=== PATIENT | female | born 1940 | race Caucasian/White ===

== ENCOUNTER 2020-10-19 15:56 | Outpatient (REF) | payer MEDICARE, SELFPAY | END 2020-10-19 15:57 | disposition home or self-care (01) | LOC: HO.LNP 15:56 | PROVIDERS: Visit Provider Specialist | DX: H57.89 Other specified disorders of eye and adnexa (principal) | CPT/HCPCS: 88304; 88305 ==

== ENCOUNTER 2020-11-02 16:19 | Outpatient (REF) | payer MEDICARE, SELFPAY | END 2020-11-02 16:20 | disposition home or self-care (01) | LOC: HO.LNP 16:19 | PROVIDERS: Visit Provider Specialist | DX: H02.825 Cysts of left lower eyelid (principal) | CPT/HCPCS: 88305 ==

== ENCOUNTER 2023-09-16 06:15 | Emergency (ER) | payer MEDICARE, SELFPAY ==
--- NOTE | ~2023-09-16 | CT_ITS ---
EXAMINATION: CT ABDOMEN AND PELVIS WITH CONTRAST CLINICAL INFORMATION: Abdominal pain and tenderness COMPARISON: None available. TECHNIQUE: Multidetector volumetric images were obtained from the superior aspect of the liver through the pubic symphysis following administration 85 mL of Omnipaque 350 intravenous contrast. Sagittal and coronal reformatted images were obtained on the technologist's workstation. Oral contrast: No This CT examination was performed using dose optimization techniques as appropriate, variously including the following: *Automated exposure control *Adjustment of mA and/or kV according to patient size (this includes techniques or standardized protocols for targeted exams where dose is matched to indication/reason for exam; i.e. extremities or head) *Use of iterative reconstruction technique DLP: 531 mGy-cm FINDINGS: LUNG BASES: The visualized lung bases are unremarkable. There is mild coronary artery calcification. LIVER, GALLBLADDER, AND BILIARY TREE: The liver is normal in size, shape, and attenuation. There are small hypodense liver lesions largest in the right hepatic lobe measures 1.5 cm and measure 16 Hounsfield units consistent with cysts. No intrahepatic ductal dilatation seen. The gallbladder is unremarkable with no evidence of radiopaque gallstones, gallbladder wall thickening, or obvious pericholecystic inflammatory changes. PANCREAS: Unremarkable. SPLEEN: Unremarkable. ADRENAL GLANDS: Unremarkable. KIDNEYS AND URETERS: The kidneys are normal in size, shape, and attenuation. No hydronephrosis, hydroureter, or calculi seen. No perinephric stranding. BLADDER: Unremarkable. GASTROINTESTINAL TRACT: There is a large amount of stool, diverticuli and gas seen throughout the colon without significant distention. The small bowel loops are normal caliber. Appendix is not visualized. ABDOMINAL WALL: A small umbilical hernia containing fat is noted. LYMPH NODES: Normal. VASCULAR: Unremarkable. PELVIC VISCERA: The pelvis is limited secondary to beam hardening artifact from bilateral hip prosthesis. Uterus and ovaries are not seen. OSSEOUS STRUCTURES: There is mild degenerative disc changes and vacuum disc phenomena throughout lumbar spine. No aggressive lytic or sclerotic process seen. No visible acute fracture or dislocation. There are bilateral hip prosthesis. CT/CT abdomen pelvis w IV con IMPRESSION: 1. No acute intra-abdominal process seen. 2. Moderate to significant constipation without obstruction. 3. Small umbilical hernia containing fat. 4. Multiple liver cysts. Fleischner guidelines were followed.
[2023-09-16 06:23] VITALS: BP 162/75; BP 162/79; PULSE 70; PULSE 72; RESP 16; TEMP 36.6; O2SAT 95; O2SAT 98; BMI 25.7
[2023-09-16 06:42] LABS: MANUAL DIFF FLAG NO
[2023-09-16 06:43] LABS: Basophils Absolute Auto 0.1 X10*3/uL (0.0-0.2); Basophils Percent Auto 1.1 % (0-2); Eosinophils Absolute Auto 0.6 X10*3/uL (0.0-0.4); Eosinophils Percent Auto 7.9 % (0-4); Hematocrit 38.3 % (37.0-47.0); Hemoglobin 12.6 g/dl (12.0-16.0); Imm Gran Abs Auto 0.01 X10*3/uL (0.00-0.03); Imm Gran Pct Auto 0.1 % (0.0-0.4); Lymphocytes Absolute Auto 1.8 X10*3/uL (1.2-4.9); Lymphocytes Percent Auto 25.8 % (20-40); Mean Corpuscular HGB Conc 32.9 g/dl (31.0-35.0); Mean Corpuscular Volume 94.1 fL (80.0-98.0); Mean Platelet Volume 10.1 fL (9.4-12.3); Monocytes Absolute Auto 0.6 X10*3/uL (0.1-1.2); Monocytes Percent Auto 8.9 % (2-11); Neutrophils Absolute Auto 3.9 x10*3/uL (2.0-8.3); Neutrophils Percent Auto 56.2 % (45-73); Platelet Count 286 X10*3/uL (160-400); Red Blood Count 4.07 X10*6/uL (4.20-5.50); Red Cell Distribution Width 12.9 % (11.0-16.0)
[2023-09-16 06:59] LABS: Alanine Aminotransferase 18 U/L (0-31); Albumin Level 3.7 g/dL (3.5-5.0); Alkaline Phosphatase 71 U/L (39-117); Anion Gap 10 (12-20); Aspartate Amino Transferase 25 U/L (5-31); Bilirubin Direct 0.1 mg/dL (0.0-0.5); Bilirubin Total 0.3 mg/dL (0.0-1.0); Blood Urea Nitrogen 25 mg/dL (9-16); Calcium 9.1 mg/dL (8.4-10.2); Carbon Dioxide 29 mmol/L (22-29); Chloride 107 mmol/L (96-108); Creatinine Clr Calc Pharmacy 54.7; Estimated Glomerular Filt Rate > 60; Glucose Random 110 mg/dL (60-115); Lipase 38 U/L (8-78); Potassium 4.8 mmol/L (3.3-5.1); Sodium 141 mmol/L (135-145); Total Protein 6.4 g/dL (6.5-8.0)
--- OUTSIDE RECORDS SUMMARY | 2023-09-16 08:52 | XMS_ITS | Continuity of Care Document ---
Author Name Unknown Organization [facility] Address [address] [place] [address]- Care Team Providers Care Ela Teacher Name Role Phone Bolivar MERA, Destiny Manzanares Primary Care Physician [facility] Date(s): 05/13/22 - 06/12/22 [facility] [address] [place] [phone]- Allergies, Adverse Reactions, Alerts No Known Allergies Immunizations Given and Recorded Vaccine Date Status Refusal Reason SARS-CoV-2 (COVID-19) mRNA BNT-162b2 vac 07/20/20 Recorded SARS-CoV-2 (COVID-19) mRNA BNT-162b2 vac 1 06/29/20 Recorded Zoster Vaccine Live 03/16/20 Recorded Zoster Vaccine Live 01/12/07 Recorded Influenza Virus Vaccine (oldterm) 03/16/20 Recorde d Influenza Virus Vaccine (oldterm) 03/22/19 Recorde d zoster vaccine, inactivated 2 03/01/20 Recorded influenza virus vaccine, inactivated 03/12/18 Robert rded influenza virus vaccine, inactivated 03/14/17 Robert rded influenza virus vaccine, inactivated 05/07/16 Robert rded influenza virus vaccine, inactivated 04/20/15 Robert rded influenza virus vaccine, inactivated 03/28/11 Robert rded tetanus-diphtheria toxoids (Td) 01/12/18 Recorded pneumococcal 23-valent vaccine 01/12/18 Recorded pneumococcal 23-valent vaccine 01/12/07 Recorded pneumococcal 13-valent vaccine 12/12/16 Recorded tetanus/diphtheria/pertussis, acel(Tdap) 08/20/10 [facility]ed [facility] acetaminophen 325 mg oral tablet 650 mg, By Mouth, Every 6 hours, Refills 0, Maintenance, 08/09/21 6:51:00 EST, Partial fill upon patient request if the prescription is for a schedule II opioid drug. Start Date: 08/09/21 Status: Ordered Aspirin Tablet 325 mg, By Mouth, 2 times a day, Refills 0, Maintenance, 08/09/21 6:51:00 EST, Partial fill upon patient request if the prescription is for a schedule II opioid drug. Start Date: 08/09/21 Status: Ordered atorvastatin 20 mg oral tablet 1 tablet, By Mouth, Daily, # 90 tablet, 1 Refills, [id number], 164, cm, 09/19/21 12:39:00 EDT,Height, 80, kg, 08/28/21 10:21:00 EDT, Dry Weight Start Date: 01/29/22 Status: Ordered calcium-vitamin D 250 mg-200 intl units oral tablet 2 tablet, By Mouth, 2 times a day, # 150 tablet, 0 Refills, Maintenance, 08/03/21 11:27:00 EST, Tablet, Partial fill upon patient request if the prescription is for a schedule II opioid drug. Start Date: 08/03/21 Status: Ordered celecoxib 200 mg oral capsule 1 capsule = 200 mg, By Mouth, Daily, 0 Refills, Maintenance, 08/09/21 6:51:00 EST, Capsule, Partialfill upon patient request if the prescription is for a schedule II opioid drug. Start Date: 08/09/21 Status: Ordered Colace Capsule 100 mg, 1, capsule, By Mouth, 2 times a day, Refills 0, Maintenance, 08/09/21 6:51:00 EST, Partial fill upon patient request if the prescription is for a schedule II opioid drug. Start Date: 08/09/21 Status: Ordered duloxetine 60 mg oral enteric coated capsule 1 capsule = 60 mg, By Mouth, Daily, # 90 capsule, 3 Refills, Maintenance, 09/19/21 13:47:00 EDT, ECCapsule, [facility]/pharmacy #[id number], Partial fill upon patient request if the prescription is for a schedule II opioid drug., 164, cm, 09/19/21 12:39:00 EDT, H... Start Date: 09/19/21 Stop Date: 09/14/22 Status: Ordered gabapentin 600 mg oral tablet 1 tablet = 600 mg, By Mouth, Daily at bedtime, # 30 tablet, 6 Refills, Maintenance, 12/14/22 14:04:00 EST, Tablet, [facility]/pharmacy #[id number], Partial fill upon patient request if the prescription is for a schedule II opioid drug., 164, cm, 09/19/21 12:39:00... Start Date: 05/29/22 Stop Date: 12/25/22 Status: Ordered Nature's Bounty Red Krill Oil = 1,000 mg, By Mouth, 2 times a day, 0 Refills, Maintenance, 12/20/20 12:55:00 EDT, Partial fill upon patient request if the prescription is for a schedule II opioid drug. Start Date: 12/20/20 Status: Ordered pantoprazole 40 mg oral delayed release tablet = 40 mg, By Mouth, Daily, 0 Refills, Maintenance, 08/09/21 6:51:00 EST, EC Tablet Start Date: 08/09/21 Status: Ordered PreserVision AREDS 2 1 capsule, By Mouth, Daily, 0 Refills, Maintenance, 12/24/18 14:52:44 EDT Start Date: 12/24/18 Status: Ordered timolol maleate 0.25% ophthalmic gel forming solution 1 drops, Eyes, Both, Daily, # 5 mL, 0 Refills, Maintenance, 12/24/18 14:57:27 EDT, Ophth Solution Start Date: 12/24/18 Status: Ordered traZODone 50 mg oral tablet 1, tablet, By Mouth, Daily at bedtime, # 90 tablet, Refills 1, Maintenance, 03/18/22 0:31:00 EDT, Route to Pharmacy Electronically, [facility] ST[facility] [id number], 164, cm, 09/19/21 12:39:00 EDT, Height, 80, kg, 08/28/21 10:21:00 EDT, Dry Weight Start Date: 03/18/22 Status: Ordered triamcinolone 0.1% topical lotion 1 application, Topically, 3 times a day, # 60 mL, 0 Refills, Maintenance, 08/03/21 11:28:00 EST, Lotion, Partial fill upon patient request if the prescription is for a schedule II opioid drug. Start Date: 08/03/21 Stop Date: 08/17/21 Status: Ordered Problem List Condition Confirmation Course Effective Dates Status Health Status Informant Anxiety and depression Confirmed Active Meningioma Confirmed Active Glaucoma Confirmed Active History of alcohol abuse Confirmed Active Hypercholesterolemia Confirmed Active Melanosis Confirmed Active Osteoarthritis Confirmed Active Degenerative joint disease Confirmed Active Osteopenia Confirmed Active PTSD (post-traumatic stress disorder) Confirmed Active Pseudophakia of both eyes Confirmed Active Restless leg syndrome Confirmed Active Thyroid nodule Confirmed Active Tubular adenoma Confirmed Active Social History Social History Type Response Smoking Status Former smoker, quit more than 30 days ago entered on: 12/24/18 Sex Female Patient Care team information Care Team Personnel Name: Israel QUIROZ, Romario Vela Position: [facility] RN Member Role: Primary Care Nurse Name: Destiny Lutz NP Position: [facility] PCO Associate Professional Member Role: PCP Address: Address: [address] [place] [phone]- Care Team Related Persons Name: KYLER DIEGO Address: home [address] [place] [place] [phone]
--- OUTSIDE RECORDS SUMMARY | 2023-09-16 08:52 | XMS_ITS | Continuity of Care Document ---
Author Name Unknown Organization [facility] Address [address] [place] [address]- Care Team Providers Care Job Counselor Name Role Phone Destiny Lutz NP Primary Care Physician [facility]): 05/15/22 - 11/28/22 [facility] [address] [place] [id number] Attending Physician: Destiny Lutz NP Allergies, Adverse Reactions, Alerts No Known Allergies Immunizations Given and Recorded Vaccine Date Status Refusal Reason influenza virus vaccine, inactivated 1 08/16/22 Gi anne influenza virus vaccine, inactivated 03/12/18 Robert rded influenza virus vaccine, inactivated 03/14/17 Robert rded influenza virus vaccine, inactivated 05/07/16 Robert rded influenza virus vaccine, inactivated 04/20/15 Robert rded influenza virus vaccine, inactivated 03/28/11 Robert rded SARS-CoV-2 mRNA (tfehoun-[id number]-[id number]) vax 10/05/21 Recorded SARS-CoV-2 (COVID-19) mRNA BNT-162b2 vac 07/20/20 Recorded SARS-CoV-2 (COVID-19) mRNA BNT-162b2 vac 2 06/29/20 Recorded Zoster Vaccine Live 03/16/20 Recorded Zoster Vaccine Live 01/12/07 Recorded Influenza Virus Vaccine (oldterm) 03/16/20 Recorde d Influenza Virus Vaccine (oldterm) 03/22/19 Recorde d zoster vaccine, inactivated 3 03/01/20 Recorded tetanus-diphtheria toxoids (Td) 01/12/18 Recorded pneumococcal 23-valent vaccine 01/12/18 Recorded pneumococcal 23-valent vaccine 01/12/07 Recorded pneumococcal 13-valent vaccine 12/12/16 Recorded tetanus/diphtheria/pertussis, acel(Tdap) 08/20/10 Recorded 1Result Comment: [facility]# [id number] 2Result Comment: [facility] acetaminophen 325 mg oral [...] Mouth, Daily, # 90 tablet, 1 Refills, Maintenance, 09/07/22 15:37:00 EDT, [id number], 164, cm, 09/05/22 10:23:00 EDT, Height, 80, kg, 08/28/21 10:21:00 EDT, Dry Weight Start Date: 09/07/22 Status: Ordered busPIRone 15 mg oral tablet 1 tablet = 15 mg, By Mouth, 2 times a day, # 180 tablet, 0 Refills, Maintenance, 11/20/22 15:35:00 EDT, Tablet, [facility]/pharmacy #[id number], Partial fill upon patient request if the prescription is for a schedule II opioid drug., 164, cm, 11/20/22 15:21:00 EDT... Start Date: 11/20/22 Stop Date: 02/18/23 Status: Ordered Caffedrine 0 Refills, Maintenance, 08/22/22 8:10:00 EST, Partial fill upon patient request if the prescriptionis for a schedule II opioid drug. Start Date: 08/22/22 Status: Ordered calcium-vitamin D 250 mg-200 intl units oral tablet 2 tablet, By Mouth, 2 times a day, # 150 tablet, 0 Refills, Maintenance, 08/03/21 11:27:00 EST, Tablet, Partial fill upon patient request if the prescription is for a schedule II opioid drug. Start Date: 08/03/21 Status: Ordered gabapentin 600 mg oral tablet 1 tablet = 600 mg, By Mouth, Daily at bedtime, # 30 tablet, 6 Refills, Maintenance, 05/29/22 14:04:00 EST, Tablet, [facility]/pharmacy #[id number], Partial fill upon patient request if the prescription is for a schedule II opioid drug., 164, cm, 09/19/21 12:39:00... Start Date: 05/29/22 Stop Date: 12/25/22 Status: Ordered Golytely - oral powder for reconstitution See Instructions, Drink 240mL every 15 minutes until gone, # 4,000 mL, 0 Refills, Maintenance, 09/03/22 13:20:00 EDT, [facility]/pharmacy #[id number], may sub any gallon PEG prep, Drink 240mL every 15 minutes until gone, 164, cm, 09/03/22 13:02:00 EDT, Height, 80,... Start Date: 09/03/22 Status: Ordered MiraLax oral powder for reconstitution = 17 Gm, By Mouth, Daily, dissolve in water or juice. My increase to 2-3 times a day as needed for constipation, # 255 Gm, 2 Refills, Maintenance, 09/03/22 13:20:00 EDT, [facility]/pharmacy #[id number], Partial fill upon patient request if the prescription is for... Start Date: 09/03/22 Stop Date: 12/02/22 Status: Ordered PreserVision AREDS 2 1 capsule, By Mouth, Daily, 0 Refills, Maintenance, 12/24/18 14:52:44 EDT Start Date: 12/24/18 Status: Ordered Grecia Antartic Krill Oil = 500 mg, By Mouth, Daily, 0 Refills, Maintenance, 08/22/22 8:10:00 EST, Partial fill upon patient request if the prescription is for a schedule II opioid drug. Start Date: 08/22/22 Status: Ordered Simethicone By Mouth, 0 Refills, Maintenance, 08/22/22 8:10:00 EST, Partial fill upon patient request if the prescription is for a schedule II opioid drug. Start Date: 08/22/22 Status: Ordered timolol maleate 0.25% ophthalmic gel forming solution 1 drops, Eyes, Both, Daily, # 5 mL, 0 Refills, Maintenance, 12/24/18 14:57:27 EDT, Ophth Solution Start Date: 12/24/18 Status: Ordered traZODone 50 mg oral tablet 50 mg, 1, tablet, By Mouth, Daily at bedtime, # 30 tablet, Refills 6, Tot. Refills 6, Maintenance, 11/25/22 14:22:00 EDT, Route to Pharmacy Electronically, [facility]/pharmacy #[id number], Partial fill upon patient request if the prescription is for a schedule II... Start Date: 11/25/22 Stop Date: 06/23/23 Status: Ordered triamcinolone 0.1% topical lotion 1 [...] Care team information Care Team Personnel Name: Romario Wood RN Position: [facility] RN Member Role: Primary Care Nurse Name: Destiny Lutz NP Position: [facility] PCO Associate Professional Member Role: PCP Address: Address: [address] [place] [address] [address] [place] [address]- Care Team Related Persons Name: BRANDEI KYLER Address: home [address] [place] [id number]
--- OUTSIDE RECORDS SUMMARY | 2023-09-16 08:52 | XMS_ITS | Continuity of Care Document ---
Author Name Unknown Organization [facility] Address [address] [place] [address]- Care Team Providers Care Surgical Manager Name Role Phone Bolivar MERA, Destiny Manzanares Primary Care Physician [facility]): 03/07/21 - 04/06/21 [facility] [address] [place] [phone]- Allergies, Adverse Reactions, Alerts Substance Reaction Severity Status NKA Active Immunizations Given and Recorded Vaccine Date Status Refusal Reason SARS-CoV-2 (COVID-19) mRNA BNT-162b2 vac 1 06/29/20 Recorded Zoster Vaccine Live 03/16/20 Recorded Influenza Virus Vaccine (oldterm) 03/16/20 Recorde d Influenza Virus Vaccine (oldterm) 03/22/19 Recorde d zoster vaccine, inactivated 2 03/01/20 Recorded 1[facility] aspirin 81 mg oral tablet 1 tablet = 81 mg, By Mouth, Daily, # 30 tablet, 0 Refills, Maintenance, 12/24/18 14:55:21 EDT, Tablet Start Date: 12/24/18 Status: Ordered atorvastatin 20 mg oral tablet 1 tablet, By Mouth, Daily, # 30 tablet, 5 Refills, Maintenance, 08/07/20 8:35:00 EST, [id number], 161, cm, 06/26/20 15:07:00 EST, Height, 80, kg, 01/17/19 21:57:00 EDT, Dry Weight Start Date: 08/07/20 Status: Ordered duloxetine 60 mg oral enteric coated capsule 1 capsule, By Mouth, 2 times a day, # 180 capsule, 2 Refills, [id number], 161, cm, 12/20/20 12:01:00 EDT, Height Start Date: 02/07/21 Status: Ordered folic acid 0.8 mg oral tablet 1 tablet = 0.8 mg, By Mouth, Daily, # 100 tablet, 0 Refills, Maintenance, 12/24/18 14:53:35 EDT, Tablet Start Date: 12/24/18 Status: Ordered Nature's Bounty Red Krill Oil = 1,000 mg, By Mouth, 2 times a day, 0 Refills, Maintenance, 12/20/20 12:55:00 EDT, Partial fill upon patient request if the prescription is for a schedule II opioid drug. Start Date: 12/20/20 Status: Ordered PreserVision AREDS 2 1 capsule, By Mouth, Daily, 0 Refills, Maintenance, 12/24/18 14:52:44 EDT Start Date: 12/24/18 Status: Ordered timolol maleate 0.25% ophthalmic gel forming solution 1 drops, Eyes, Both, Daily, # 5 mL, 0 Refills, Maintenance, 12/24/18 14:57:27 EDT, Ophth Solution Start Date: 12/24/18 Status: Ordered traZODone 50 mg oral tablet 1, tablet, By Mouth, Daily at bedtime, MUST MAKE AN APPT BEFORE MORE REFILLS., # 90 tablet, Refills0, Tot. Refills 0, Maintenance, 09/04/20 8:54:00 EDT, Route to Pharmacy Electronically, [id number], 161, cm, 06/26/20 15:07:00 EST, Height, 80, kg... Start Date: 09/04/20 Stop Date: 10/04/20 Status: Ordered Vitamin B12 1000 mcg oral tablet 1 tablet = 1,000 mcg, By Mouth, Daily, # 30 tablet, 0 Refills, Maintenance, 12/24/18 14:54:29 EDT, Tablet Start Date: 12/24/18 Status: Ordered Vitamin D3 2000 intl units oral capsule 1 capsule = 2,000 International_Units, By Mouth, Daily, 0 Refills, Maintenance, 12/24/18 14:55:00 EDT Start Date: 12/24/18 Status: Ordered Problem List Condition Effective Dates Status Health Status Inform ant Colon adenoma(Confirmed) Active Anxiety and depression(Confirmed) Active Meningioma(Confirmed) Active Bulimia(Confirmed) Active Glaucoma(Confirmed) Active History of alcohol abuse(Confirmed) Active Hypercholesterolemia(Confirmed) Active Melanosis(Confirmed) Active Osteoarthritis(Confirmed) Active Degenerative joint disease(Confirmed) Active Osteopenia(Confirmed) Active PTSD (post-traumatic stress disorder)(Confirmed) Active Pseudophakia of both eyes(Confirmed) Active Restless leg syndrome(Confirmed) Active Thyroid nodule(Confirmed) Active Social History Social History Type Response Smoking Status Former smoker, quit more than 30 days ago entered on: 12/24/18 Sex Female
--- OUTSIDE RECORDS SUMMARY | 2023-09-16 08:53 | XMS_ITS | Continuity of Care Document ---
Author Name Unknown Organization [facility] Address [address] [place] [address]- Care Team Providers Care Character Impersonator Name Role Phone Bolivar MERA, Destiny Manzanares Primary Care Physician [facility]): 03[facility]23 - 04/09/23 [facility] [address] [place] [id number] Allergies, Adverse Reactions, Alerts No Known Allergies Immunizations Given and Recorded Vaccine Date Status Refusal Reason influenza virus vaccine, inactivated 1 08/16/22 Gi anne influenza virus vaccine, inactivated 03/12/18 Robert rded influenza virus vaccine, inactivated 03/14/17 Robert rded influenza virus vaccine, inactivated 05/07/16 Robert rded influenza virus vaccine, inactivated 04/20/15 Robert rded influenza virus vaccine, inactivated 03/28/11 Robert rded SARS-CoV-2 mRNA ([id number]) vax 10/05/21 Recorded SARS-CoV-2 (COVID-19) mRNA BNT-162b2 [...] Recorded tetanus/diphtheria/pertussis, acel(Tdap) 08/20/10 Recorded 1Result Comment: [facility]# [id number] 2Result Comment: [facility]: [facility] Medications acetaminophen 325 mg oral tablet 650 [...] Daily, # 90 tablet, 1 Refills, Maintenance, 02/09/23 21:45:00 EDT, [id number], 164, cm, 11/20/22 15:21:00 EDT, Height, 80, kg, 08/28/21 10:21:00 EDT, Dry Weight Start Date: 02/09/23 Status: Ordered busPIRone 15 mg oral tablet 1 tablet, By Mouth, 2 times a day, # 180 tablet, 1 Refills, Maintenance, 02/09/23 21:46:00 EDT, [id number], 164, cm, 11/20/22 15:21:00 EDT, Height, 80, kg, 08/28/21 10:21:00 EDT, Dry Weight Start Date: 02/09/23 Status: Ordered busPIRone 30 mg oral tablet 1 tablet = 30 mg, By Mouth, 2 times a day, # 60 tablet, 6 Refills, Maintenance, 02/27/23 13:05:00 EDT, Tablet, [facility]/pharmacy #[id number], Partial fill upon patient request if the prescription is for a schedule II opioid drug., 164, cm, 02/27/23 12:47:00 EDT,... Start Date: 02/27/23 Stop Date: 09/25/23 Status: Ordered Caffedrine 0 Refills, Maintenance, 08/22/22 [...] 6 Refills, Maintenance, 05/29/22 14:04:00 EST, Tablet, [facility]/pharmacy #[id number], Partial fill upon patient request if the prescription is for a schedule II opioid drug., 164, cm, 09/19/21 12:39:00... Start Date: 05/29/22 Stop Date: 12/25/22 Status: Ordered Golytely - oral powder for reconstitution See Instructions, Drink 240mL every 15 minutes until gone, # 4,000 mL, 0 Refills, Maintenance, 09/03/22 13:20:00 EDT, [id number], may sub any gallon PEG prep, Drink 240mL every 15 minutes until gone, 164, cm, 09/03/22 13:02:00 EDT, Height, 80,... Start Date: 09/03/22 Status: Ordered MiraLax oral powder for reconstitution = 17 Gm, By Mouth, Daily, dissolve in water or juice. My increase to 2-3 times a day as needed for constipation, # 255 Gm, 2 Refills, Maintenance, 09/03/22 13:20:00 EDT, [id number], Partial fill upon patient request if [...] Daily at bedtime, # 30 tablet, Refills 2, Tot. Refills 2, Maintenance, 06/23/23 14:22:00 EST, Route to Pharmacy Electronically, [id number], Partial fill upon patient request if the prescription is for a sche... Start Date: 06/23/23 Stop Date: 09/21/23 Status: Ordered traZODone 50 mg oral tablet 50 mg, 1, tablet, By Mouth, Daily at bedtime, for 30 days, # 30 tablet, Refills 6, Tot. Refills 6, Hard Stop 06/23/23 14:22:00 EST, 11/25/22 14:22:00 EDT, Route to Pharmacy Electronically, [facility]/pharmacy #[id number], Partial fill upon patient request if the p... Start Date: 11/25/22 Stop Date: 06/23/23 Status: [...] Status Informant Anxiety and depression Confirmed Active Other specified anxiety disorders Confirmed Active ADHD Confirmed Active Meningioma Confirmed Active Glaucoma Confirmed Active History of alcohol abuse Confirmed Active Hypercholesterolemia Confirmed Active Melanosis Confirmed Active Osteoarthritis Confirmed Active Degenerative joint disease Confirmed Active Osteopenia Confirmed Active Persistent depressive disorder Confirmed Active PTSD (post-traumatic stress disorder) Confirmed Active Pseudophakia of both eyes Confirmed Active Restless leg syndrome Confirmed Active Thyroid nodule Confirmed Active Tubular adenoma Confirmed Active Social History Social History Type Response Smoking Status Former smoker, quit more than 30 days ago entered on: 12/24/18 Sex Female Patient Care team information Care Team Personnel Name: Israel RN, Romario Vela Position: S RN Member Role: Primary Care Nurse Name: Bolivar MERA, Destiny Manzanares Position: [facility] PCO Associate Professional Member Role: PCP Address: Address: [address] [place] [id number]- Care Team Related Persons Name: KYLER DIEGO Address: home [address] [place] [id number]
--- OUTSIDE RECORDS SUMMARY | 2023-09-16 08:53 | XMS_ITS | Continuity of Care Document ---
Author Name Unknown Organization [facility] Address [address] [place] [address]- Care Team Providers Care Water Trainer Name Role Phone Bolivar MERA, Destiny Manzanares Primary Care Physician [facility]): 08[facility]08[facility]23 - 09/07/23 [facility] [address] [place] [id number] Allergies, Adverse Reactions, Alerts No Known Allergies Immunizations Given and Recorded Vaccine Date Status Refusal Reason influenza virus vaccine, inactivated 1 08/16/22 Gi anne influenza virus vaccine, inactivated 03/12/18 Robert rded influenza virus vaccine, inactivated 03/14/17 Robert rded influenza virus vaccine, inactivated 05/07/16 Robert rded influenza virus vaccine, inactivated 04/20/15 Robert rded influenza virus vaccine, inactivated 03/28/11 Robert rded SARS-CoV-2 mRNA ([id number]-jcrs-rfifn) vax 10/05/21 Recorded SARS-CoV-2 (COVID-19) mRNA BNT-162b2 [...] tetanus/diphtheria/pertussis, acel(Tdap) 08/20/10 Recorded 1Result Comment: [facility]# [id number] 2[facility] Comment: [facility] [...] Daily, # 90 tablet, 1 Refills, Maintenance, 09/02/23 10:26:00 EDT, [id number], 164, cm, 06/19/23 15:19:00 EST, Height Start Date: 09/02/23 Status: Ordered busPIRone 30 mg oral tablet 1 tablet, By Mouth, 2 times a day, # 180 tablet, 1 Refills, Maintenance, 09/02/23 10:25:00 EDT, [id number], 164, cm, 06/19/23 15:19:00 EST, Height Start Date: 09/02/23 Stop Date: 10/02/23 Status: Ordered Caffedrine 0 Refills, Maintenance, 08/22/22 [...] mg, By Mouth, Daily at bedtime, # 90 tablet, 4 Refills, Maintenance, 05/26/23 10:44:00 EST, Tablet, [id number], Partial fill upon patient request if the prescription is for a schedule II opioid drug., 164, cm, 02/27/23 12:47:00... Start Date: 05/26/23 Stop Date: 08/18/24 Status: Ordered Golytely - oral powder for reconstitution See Instructions, Drink 240mL every 15 minutes until gone, # 4,000 mL, 0 Refills, Maintenance, 09/03/22 13:20:00 EDT, [facility]/pharmacy #[id number], may sub any gallon PEG prep, Drink 240mL every 15 minutes until gone, 164, cm, 09/03/22 13:02:00 EDT, Height, 80,... Start Date: 09/03/22 Status: Ordered MiraLax oral powder for reconstitution = 17 Gm, By Mouth, Daily, dissolve in water or juice. My increase to 2-3 times a day as needed for constipation, # 255 Gm, 2 Refills, Maintenance, 09/03/22 13:20:00 EDT, [facility]/pharmacy #[id number], Partial fill upon patient request if [...] Daily at bedtime, # 90 tablet, Refills 2, Maintenance, 05/22/23 12:01:00 EST, Route to Pharmacy Electronically, [facility] STORE [id number], 164, cm, 02/27/23 12:47:00 EDT, Height, 80, kg, 08/28/21 10:21:00 EDT, Dry Weight Start Date: 05/22/23 Status: Ordered triamcinolone 0.1% topical lotion 1 [...] Active ADHD Confirmed Active Meningioma Confirmed Active History of smoking Confirmed Active Glaucoma Confirmed Active History of [...] Personnel Name: Israel RN, Romario Vela Position: [facility] RN Member Role: Primary Care Nurse Name: Destiny Lutz NP Position: [facility] PCO Associate Professional Member Role: PCP Address: Address: [address] [place] [address] [address] [place] [address]- Care Team Related Persons Name: BUTCHFlorence KYLER Address: home [address] [place] [address]
--- OUTSIDE RECORDS SUMMARY | 2023-09-16 08:53 | XMS_ITS | Continuity of Care Document ---
Author Name Unknown Organization [facility] Adult Address [address] [place] [address]- Care Team Providers Care Manager Program Name Role Phone Destiny Lutz NP Primary Care Physician [facility]counter [facility] Date[facility]s): 09/26/22 - 10/26/22 [facility] Adult [address] [place] [address]- Allergies, Adverse Reactions, Alerts No Known Allergies Immunizations Given and Recorded Vaccine Date Status Refusal Reason influenza virus vaccine, inactivated 1 08/16/22 Gi anne influenza virus vaccine, inactivated 03/12/18 Robert rded influenza virus vaccine, inactivated 03/14/17 Robert rded influenza virus vaccine, inactivated 05/07/16 Robert rded influenza virus vaccine, inactivated 04/20/15 Robert rded influenza virus vaccine, inactivated 03/28/11 Robert rded SARS-CoV-2 mRNA ([id number]) vax 10/05/21 Recorded SARS-CoV-2 (COVID-19) mRNA BNT-162b2 [...] 08/20/10 Recorded 1Result Comment: [facility]# [id number] 2Result Comment: [facility] 3[facility]: [facility] [...] Refills, Maintenance, 09/07/22 15:37:00 EDT, [facility], 164, cm, 09/05/22 10:23:00 EDT, Height, 80, kg, 08/28/21 10:21:00 EDT, Dry Weight Start Date: 09/07/22 Status: Ordered busPIRone 7.5 mg oral tablet 1 tablet, By Mouth, 2 times a day, # 60 tablet, 0 Refills, Maintenance, 10/22/22 13:26:00 EDT, [facility], 164, cm, 09/19/22 9:37:00 EDT, Height, 80, kg, 08/28/21 10:21:00 EDT, Dry Weight Start Date: 10/22/22 Stop Date: 11/21/22 Status: Ordered Caffedrine 0 Refills, Maintenance, 08/22/22 [...] enteric coated capsule 1 capsule, By Mouth, Daily, # 90 capsule, 3 Refills, Maintenance, 09/16/22 12:22:00 EDT, [facility], 164, cm, 09/05/22 10:23:00 EDT, Height, 80, kg, 08/28/21 10:21:00 EDT, Dry Weight Start Date: 09/16/22 Status: Ordered gabapentin 600 mg oral tablet 1 tablet = 600 mg, By Mouth, Daily at bedtime, # 30 tablet, 6 Refills, Maintenance, 05/29/22 14:04:00 EST, Tablet, [id number], Partial fill upon [...] Date: 09/03/22 Stop Date: 12/02/22 Status: Ordered Nature's Bounty Red Krill Oil [...] Ophth Solution Start Date: 12/24/18 Status: Ordered triamcinolone 0.1% topical lotion 1 [...] Personnel Name: Israel RN, Romario Vela Position: [facility] RN Member Role: Primary Care Nurse Name: Bolivar RADIOLOGIST, Destiny Manzanares Position: [facility] PCO Associate Professional Member Role: PCP Address: Address: [address] [place] [address]- Care Team Related Persons Name: KYLER DIEGO Address: home [address] [place] [phone]
--- OUTSIDE RECORDS SUMMARY | 2023-09-16 08:53 | XMS_ITS | Continuity of Care Document ---
Author Name Unknown Organization [facility] Adult Address [address] [place] [address]- Care Team Providers Care Motorcycle Police Officer Name Role Phone Destiny Lutz NP Primary Care Physician Encounter [facility] Date(s): 02/27/23 - 03/06/23 [facility] Adult [address] [place] [id number] Encounter Diagnosis Anxiety and depression(Discharge Diagnosis) - 02/27/23 Attending Physician: Destiny Lutz NP Allergies, Adverse [...] vaccine, inactivated 03/28/11 Robert rded SARS-CoV-2 mRNA ([id number]-zzle-hsgvv) vax 10/05/21 Recorded SARS-CoV-2 (COVID-19) mRNA BNT-162b2 vac 07/20/20 Recorded SARS-CoV-2 (COVID-19) mRNA BNT-162b2 vac 2 06/29/20 Recorded Zoster Vaccine Live 03/16/20 Recorded Zoster Vaccine Live 01/12/07 Recorded Influenza Virus Vaccine (oldterm) 03/16/20 Recorde d Influenza Virus Vaccine (oldterm) 03/22/19 Recorde d zoster vaccine, inactivated 3 03/01/20 Recorded tetanus-diphtheria toxoids (Td) 01/12/18 Recorded pneumococcal 23-valent vaccine 01/12/18 Recorded pneumococcal 23-valent vaccine 7/30/07 Recorded pneumococcal 13-valent vaccine 12/12/16 Recorded tetanus/diphtheria/pertussis, acel(Tdap) 08/20/10 Recorded 1Result Comment: [facility]# [id number] 2Result Comment: [facility] 3Result Comment: [facility] [...] Refills, Maintenance, 02/09/23 21:45:00 EDT, [facility], 164, cm, 11/20/22 15:21:00 EDT, Height, 80, kg, 08/28/21 10:21:00 EDT, Dry Weight Start Date: 02/09/23 Status: Ordered busPIRone 15 mg oral tablet 1 tablet, By Mouth, 2 times a day, # 180 tablet, 1 Refills, Maintenance, 02/09/23 21:46:00 EDT, [facility], 164, cm, 11/20/22 15:21:00 EDT, Height, 80, kg, 08/28/21 10:21:00 EDT, Dry Weight Start Date: 02/09/23 Status: Ordered busPIRone 30 mg oral tablet 1 tablet = 30 mg, By Mouth, 2 times a day, # 60 tablet, 6 Refills, Maintenance, 02/27/23 13:05:00 EDT, Tablet, [facility]/pharmacy #[id number], Partial fill upon patient request [...] 6 Refills, Maintenance, 05/29/22 14:04:00 EST, Tablet, [facility]/pharmacy #[id number], Partial fill upon patient request [...] Gm, 2 Refills, Maintenance, 09/03/22 13:20:00 EDT, [facility]/pharmacy #[id number], Partial fill upon patient request [...] 11/25/22 14:22:00 EDT, Route to Pharmacy Electronically, [facility]/pharmacy #[id number], Partial fill upon patient request if the [...] nodule Confirmed Active Tubular adenoma Confirmed Active Diagnosis Diagnosis Type Effective Dates Health Status Clinical Service Informant Anxiety and depression Discharge Diagnosis 02/27/23 Vital Signs Most recent to oldest [Reference Range]: 1 Height 164 cm (02/27/23 12:47 PM) Weight 66 kg (02/27/23 12:47 PM) Body Mass Index [18.5-24.99 kg/m2] 24.54 kg/m2 (02/27/23 12:47 PM) Weight Obtained Via Patient/family state d (02/27/23 12:47 PM) Social History Social History Type Response Smoking Status Former smoker, quit more than 30 days ago entered on: 12/24/18 Sex Female Patient Care team information Care Team Personnel Name: Romario Wood RN Position: [facility] RN Member Role: Primary Care Nurse Name: Destiny Lutz NP Position: [facility] PCO Associate Professional Member Role: PCP Address: Address: [address] [place] [address]- Care Team Related Persons Name: KYLER DIEGO Address: home [address] [place] [address]
--- OUTSIDE RECORDS SUMMARY | 2023-09-16 08:53 | XMS_ITS | Continuity of Care Document ---
Author Name Unknown Organization [facility] Adult Address [address] [place] [address]- Care Team Providers Care Business Dean Name Role Phone Bolivar MERA, Destiny Manzanares Primary Care Physician [facility] Date[facility]s): 11/12/22 - 12/12/22 [facility] Adult [address] [place] [id number] Allergies, Adverse Reactions, Alerts No Known Allergies Immunizations Given and Recorded Vaccine Date Status Refusal Reason influenza virus vaccine, inactivated 1 08/16/22 Gi anne influenza virus vaccine, inactivated 03/12/18 Robert rded influenza virus vaccine, inactivated 03/14/17 Robert rded influenza virus vaccine, inactivated 05/07/16 Robert rded influenza virus vaccine, inactivated 04/20/15 Robert rded influenza virus vaccine, inactivated 03/28/11 Robert rded SARS-CoV-2 mRNA (loyggye-atee-vhjsd) vax 10/05/21 Recorded SARS-CoV-2 (COVID-19) mRNA BNT-162b2 [...] tetanus/diphtheria/pertussis, acel(Tdap) 08/20/10 Recorded 1Result Comment: [facility]# [id number] 2Result Comment: [facility] 3Result Comment: [facility] Medications acetaminophen 325 mg oral tablet 650 [...] Refills, Maintenance, 09/07/22 15:37:00 EDT, [facility], 164, cm, 09/05/22 10:23:00 EDT, Height, 80, kg, 08/28/21 10:21:00 EDT, Dry Weight Start Date: 09/07/22 Status: Ordered busPIRone 15 mg oral tablet 1 tablet = 15 mg, By Mouth, 2 times a day, # 180 tablet, 0 Refills, Maintenance, 11/20/22 15:35:00 EDT, Tablet, [facility]/pharmacy #[id number], Partial fill upon [...] 6 Refills, Maintenance, 05/29/22 14:04:00 EST, Tablet, [facility]/pharmacy #[id number], Partial fill upon patient request if the prescription is for a schedule II opioid drug., 164, cm, 09/19/21 12:39:00... Start Date: 05/29/22 Stop Date: 12/25/22 Status: Ordered Golytely - oral powder for reconstitution See Instructions, Drink 240mL every 15 minutes until gone, # 4,000 mL, 0 Refills, Maintenance, 09/03/22 13:20:00 EDT, [facility]/pharmacy #[id number], may sub any [...] Gm, 2 Refills, Maintenance, 09/03/22 13:20:00 EDT, [facility]/pharmacy #[id number], Partial fill upon [...] 11/25/22 14:22:00 EDT, Route to Pharmacy Electronically, [facility]/pharmacy #[id number], Partial fill upon patient request if the [...] Team Personnel Name: Romario Wood RN Position: [facility] RN Member Role: Primary Care Nurse Name: Destiny Lutz NP Position: [facility] PCO Associate Professional Member Role: PCP Address: Address: [address] [place] [id number] Care Team Related Persons Name: KYLER DIEGO Address: home [address] [place] [address]
--- OUTSIDE RECORDS SUMMARY | 2023-09-16 08:53 | XMS_ITS | Continuity of Care Document ---
Author Name Unknown Organization [facility] Address [address] [facility] [place] [address] [place] [address]- Care Team Providers Care Ground Services Instructor Name Role Phone Destiny Lutz NP Primary Care Physician Encounter 01/17/22 - 01/24/22 [facility] [address], [facility] [address] [place] [address]- Attending Physician: Destiny Lutz NP Admitting Physician: Destiny Lutz NP Referring Physician: Destiny Lutz NP Allergies, Adverse Reactions, [...] # 90 tablet, 1 Refills, [facility], 161, cm, 12/20/20 12:01:00 EDT,Height Start Date: 04/20/21 Status: Ordered calcium-vitamin D 250 mg-200 intl [...] 3 Refills, Maintenance, 09/19/21 13:47:00 EDT, ECCapsule, [facility]/pharmacy #[id number], Partial fill upon patient request if the prescription is for a schedule II opioid drug., 164, cm, 09/19/21 12:39:00 EDT, H... Start Date: 09/19/21 Stop Date: 09/14/22 Status: Ordered gabapentin 600 mg oral tablet 1 tablet = 600 mg, By Mouth, Daily at bedtime, # 90 tablet, 5 Refills, Maintenance, 08/03/21 11:26:00 EST, Tablet, Partial fill upon patient request if the prescription is for a schedule II opioid drug. Start Date: 08/03/21 Status: Ordered Nature's Bounty Red Krill Oil [...] at bedtime, # 90 tablet, Refills 1, Tot. Refills 1, 10/08/21 8:59:00 EDT, Route to Pharmacy Electronically, [facility]/pharmacy #[id number], 164, cm, 09/19/21 12:39:00 EDT, Height, 80, kg, 08/28/21 10:21:00 EDT, Dry Weight Start Date: 10/08/21 Status: Ordered triamcinolone 0.1% topical lotion 1 application, Topically, 3 times a day, # 60 mL, 0 Refills, Maintenance, 08/03/21 11:28:00 EST, Lotion, Partial fill upon patient request if the prescription is for a schedule II opioid drug. Start Date: 08/03/21 Stop Date: 08/17/21 Status: Ordered Problem List Condition Effective Dates Status Health Status Inform ant Anxiety and depression(Confirmed) Active Meningioma(Confirmed) Active Glaucoma(Confirmed) Active History of alcohol abuse(Confirmed) Active Hypercholesterolemia(Confirmed) Active Melanosis(Confirmed) Active Osteoarthritis(Confirmed) Active Degenerative joint disease(Confirmed) Active Osteopenia(Confirmed) Active PTSD (post-traumatic stress disorder)(Confirmed) Active Pseudophakia of both eyes(Confirmed) Active Restless leg syndrome(Confirmed) Active Thyroid nodule(Confirmed) Active Tubular adenoma(Confirmed) Active Social History Social History Type Response Smoking Status Former smoker, quit more than 30 days ago entered on: 12/24/18 Sex Female
--- OUTSIDE RECORDS SUMMARY | 2023-09-16 08:53 | XMS_ITS | Continuity of Care Document ---
Author Name Unknown Organization [facility] Adult Address [address] [place] [address]- Care Team Providers Care Manager Cash Name Role Phone Destiny Lutz NP Primary Care Physician [facility] Date[facility]s): 07/18/22 - 08/17/22 [facility] Adult [address] [place] [address]- Allergies, Adverse Reactions, Alerts No Known Allergies Immunizations Given and Recorded Vaccine Date Status Refusal Reason influenza virus vaccine, inactivated 1 08/16/22 Gi anne influenza virus vaccine, inactivated 03/12/18 Robert rded influenza virus vaccine, inactivated 03/14/17 Robert rded influenza virus vaccine, inactivated 05/07/16 Robert rded influenza virus vaccine, inactivated 04/20/15 Robert rded influenza virus vaccine, inactivated 03/28/11 Robert rded SARS-CoV-2 mRNA (qfgqnfu-xrsl-ewnhw) vax 10/05/21 Recorded SARS-CoV-2 (COVID-19) mRNA BNT-162b2 [...] Recorded tetanus/diphtheria/pertussis, acel(Tdap) 08/20/10 Recorded 1Result Comment: [facility]# [id number] 2Result Comment: [facility] 3Result Comment: [facility] [...] # 90 tablet, 1 Refills, [facility], 164, cm, 09/19/21 12:39:00 EDT,Height, 80, kg, [...] 3 Refills, Maintenance, 09/19/21 13:47:00 EDT, ECCapsule, [facility]/pharmacy #[id number], Partial fill upon patient request if the prescription is for a schedule II opioid drug., 164, cm, 09/19/21 12:39:00 EDT, H... Start Date: 09/19/21 Stop Date: 09/14/22 Status: Ordered gabapentin 600 mg oral tablet 1 tablet = 600 mg, By Mouth, Daily at bedtime, # 30 tablet, 6 Refills, Maintenance, 05/29/22 14:04:00 EST, Tablet, [facility]/pharmacy #[id number], Partial fill upon patient request [...] 03/18/22 0:31:00 EDT, Route to Pharmacy Electronically, [facility] STORE [id number], 164, cm, 09/19/21 12:39:00 EDT, Height, 80, [...] Team Personnel Name: Romario Wood RN Position: [facility] RN Member Role: Primary Care Nurse Name: Destiny Lutz NP Position: [facility] PCO Associate Professional Member Role: PCP Address: Address: [address] [place] [address] [address] [place] [address]- Care Team Related Persons Name: KYLER DIEGO Address: home [address] [place] [phone]
--- OUTSIDE RECORDS SUMMARY | 2023-09-16 08:53 | XMS_ITS | Continuity of Care Document ---
Author Name Unknown Organization [facility] Adult Address [address] [place] [address]- Care Team Providers Care Adult Specialist Name Role Phone Destiny Lutz NP Primary Care Physician En[place] [facility] Date(s): 07/06/19 - 07/16/19 [facility] Adult [address] [place] [address]- [facility] Attending Physician: Soy Capone Admitting Physician: Soy Capone Referring Physician: AdmtrSoy Allergies, Adverse Reactions, Alerts Substance Reaction Severity Status NKA Active Immunizations Given and Recorded Vaccine Date Status Refusal Reason Influenza Virus Vaccine (oldterm) 03/22/19 Recorde d Medications aspirin 81 mg oral tablet 1 tablet = 81 mg, By Mouth, Daily, # 30 tablet, 0 Refills, Maintenance, 12/24/18 14:55:21 EDT, Tablet Start Date: 12/24/18 Status: Ordered atorvastatin 20 mg oral tablet 1 tablet = 20 mg, By Mouth, Daily, # 30 tablet, 2 Refills, Maintenance, 05/18/19 15:45:07 EST, Tablet, 161, cm, 01/19/19 7:40:47 EDT, Height, 80, kg, 01/17/19 21:57:10 EDT, Dry Weight Start Date: 05/18/19 Stop Date: 08/16/19 Status: Ordered buPROPion 100 mg oral tablet 1 tablet = 100 mg, By Mouth, 2 times a day, Patient will be increased to 400 mg daily. ( 300 mg Xl daily and 100 mg BID), # 60 tablet, 6 Refills, Maintenance, 05/18/19 16:40:40 EST, Tablet, 161, cm, 01/19/19 7:40:47 EDT, Height, 80, kg, 01/17/19 21:57... Start Date: 05/18/19 Stop Date: 12/14/19 Status: Ordered buPROPion 300 mg/24 hours (XL) oral tablet, extended release 1 tablet = 300 mg, By Mouth, Daily, # 30 tablet, 6 Refills, Maintenance, 05/18/19 16:40:25 EST, ER Tablet, 161, cm, 01/19/19 7:40:47 EDT, Height, 80, kg, 01/17/19 21:57:10 EDT, Dry Weight Start Date: 05/18/19 Stop Date: 12/14/19 Status: Ordered duloxetine 60 mg oral enteric coated capsule 1 capsule = 60 mg, By Mouth, Daily, # 30 capsule, 5 Refills, Maintenance, 01/21/19 16:41:15 EDT, Capsule Start Date: 01/21/19 Status: Ordered folic acid 0.8 mg oral tablet 1 tablet = 0.8 mg, By Mouth, Daily, # 100 tablet, 0 Refills, Maintenance, 12/24/18 14:53:35 EDT, Tablet Start Date: 12/24/18 Status: Ordered gabapentin 600 mg oral tablet 1 tablet = 600 mg, By Mouth, Daily at bedtime, 0 Refills, Maintenance, 01/17/19 22:06:31 EDT Start Date: 01/17/19 Status: Ordered PreserVision AREDS 2 1 capsule, [...] 30 tablet, Refills 2, Tot. Refills 2, Soft Stop, 04/26/19 16:42:03 EST, Route to Pharmacy Electronically, [id number], [facility]/pharmacy #[id number] Start Date: 04/26/19 Stop Date: 07/25/19 Status: Ordered Vitamin B12 1000 mcg oral [...]
--- OUTSIDE RECORDS SUMMARY | 2023-09-16 08:53 | XMS_ITS | Continuity of Care Document ---
Author Name Unknown Organization [facility] Adult Address [address] [place] [address]- Care Team Providers Care Spanisher Name Role Phone Bolivar MERA, Destiny Manzanares Primary Care Physician [facility] 04[facility]23 - 05/04/23 [facility] Adult [address] [place] [id number] Allergies, Adverse Reactions, Alerts No Known Allergies Immunizations Given and Recorded Vaccine Date Status Refusal Reason influenza virus vaccine, inactivated 1 08/16/22 Gi anne influenza virus vaccine, inactivated 03/12/18 Robert rded influenza virus vaccine, inactivated 03/14/17 Robert rded influenza virus vaccine, inactivated 05/07/16 Robert rded influenza virus vaccine, inactivated 04/20/15 Robert rded influenza virus vaccine, inactivated 03/28/11 Robert rded SARS-CoV-2 mRNA ([id number]-pftl-ltnrh) vax 10/05/21 Recorded SARS-CoV-2 (COVID-19) mRNA BNT-162b2 [...] Recorded tetanus/diphtheria/pertussis, acel(Tdap) 08/20/10 Recorded 1Result Comment: [facility]# [id number] 2Result Comment: [facility] 3Result Comment: [facility] Medications acetaminophen 325 mg oral tablet [...] Refills, Maintenance, 02/09/23 21:45:00 EDT, [facility], 164, cm, 11/20/22 15:21:00 EDT, Height, 80, kg, 08/28/21 10:21:00 EDT, Dry Weight Start Date: 02/09/23 Status: Ordered busPIRone 15 mg oral tablet 1 tablet, By Mouth, 2 times a day, # 180 tablet, 1 Refills, Maintenance, 02/09/23 21:46:00 EDT, [facility], 164, cm, 11/20/22 15:21:00 EDT, Height, 80, kg, 08/28/21 10:21:00 EDT, Dry Weight Start Date: 02/09/23 Status: Ordered busPIRone 30 mg oral tablet 1 tablet = 30 mg, By Mouth, 2 times a day, # 60 tablet, 6 Refills, Maintenance, 02/27/23 13:05:00 EDT, Tablet, [facility]/pharmacy #[id number], Partial fill upon patient [...] 6 Refills, Maintenance, 05/29/22 14:04:00 EST, Tablet, [facility]/pharmacy #[id number], Partial fill upon patient [...] 11/25/22 14:22:00 EDT, Route to Pharmacy Electronically, [facility]/pharmacy #[id number], Partial fill upon patient request if the [...] more than 30 days ago entered on: 7/11/19 Sex Female Patient Care team information Care Team Personnel Name: Israel RN, Romario Vela Position: [facility] RN Member Role: Primary Care Nurse Name: Destiny Lutz NP Position: [facility] PCO Associate Professional Member Role: PCP Address: Address: [address] [place] [place] [address]- Care Team Related Persons Name: KYLER DIEGO Address: [address] [address]
--- OUTSIDE RECORDS SUMMARY | 2023-09-16 08:53 | XMS_ITS | Continuity of Care Document ---
Author Name Unknown Organization [facility] Adult Address [address] [place] [address]- Care Team Providers Care Fixed Wing Aircraft Crew Chief Name Role Phone Bolivar MERA, Destiny Manzanares Primary Care Physician [facility]): 12[facility]22 - 01/09/23 [facility] Adult [address] [place] [id number] Attending Physician: Admtr, Nestor8 Admitting Physician: Admtr, Ar8 Referring Physician: Admtr, Ar8 Allergies, Adverse Reactions, Alerts No Known Allergies Immunizations Given and Recorded Vaccine Date Status Refusal Reason influenza virus vaccine, inactivated 1 08/16/22 Gi anne influenza virus vaccine, inactivated 03/12/18 Robert rded influenza virus vaccine, inactivated 03/14/17 Robert rded influenza virus vaccine, inactivated 05/07/16 Robert rded influenza virus vaccine, inactivated 04/20/15 Robert rded influenza virus vaccine, inactivated 03/28/11 Robert rded SARS-CoV-2 mRNA (gbrpnpp-yfdu-wfhwd) vax 10/05/21 Recorded SARS-CoV-2 (COVID-19) mRNA BNT-162b2 [...] Recorded tetanus/diphtheria/pertussis, acel(Tdap) 08/20/10 Recorded 1Result Comment: [facility]# [id number] 2Result Comment: [facility] 3[facility]: [facility] [...] Refills, Maintenance, 09/07/22 15:37:00 EDT, [facility], 164, cm, 09/05/22 10:23:00 EDT, Height, 80, kg, 08/28/21 10:21:00 EDT, Dry Weight Start Date: 09/07/22 Status: Ordered busPIRone 15 mg oral tablet 1 tablet = 15 mg, By Mouth, 2 times a day, # 180 tablet, 0 Refills, Maintenance, 11/20/22 15:35:00 EDT, Tablet, [facility]/pharmacy #[id number], Partial fill upon patient request [...] 6 Refills, Maintenance, 05/29/22 14:04:00 EST, Tablet, [facility]/pharmacy #[id number], Partial fill upon patient request if the prescription is for a schedule II opioid drug., 164, cm, 09/19/21 12:39:00... Start Date: 05/29/22 Stop Date: 12/25/22 Status: Ordered Golytely - oral powder for reconstitution See Instructions, Drink 240mL every 15 minutes until gone, # 4,000 mL, 0 Refills, Maintenance, 09/03/22 13:20:00 EDT, [facility]/pharmacy #[id number], may sub any gallon PEG prep, Drink 240mL every 15 minutes until gone, 164, cm, 09/03/22 13:02:00 EDT, Height, 80,... Start Date: 09/03/22 Status: Ordered MiraLax oral powder for reconstitution = 17 Gm, By Mouth, Daily, dissolve in water or juice. My increase to 2-3 times a day as needed for constipation, # 255 Gm, 2 Refills, Maintenance, 09/03/22 13:20:00 EDT, [facility]/pharmacy #[id number], Partial fill upon patient request [...] 11/25/22 14:22:00 EDT, Route to Pharmacy Electronically, [facility]/pharmacy #[id number], Partial fill upon patient request if the [...] Personnel Name: Israel QUIROZ, Romario Vela Position: [facility] RN Member Role: Primary Care Nurse Name: Destiny Lutz NP Position: [facility] PCO Associate Professional Member Role: PCP Address: Address: [address] [place] [address] [address] [place], [place] [address] Care Team Related Persons Name: MORRISKYLER HERNANDEZ Address: home [address] [place] [address]
--- OUTSIDE RECORDS SUMMARY | 2023-09-16 08:53 | XMS_ITS | Continuity of Care Document ---
Author Name Unknown Organization [facility] Address [address] [place] [address]- Care Team Providers Care Customer Leader Name Role Phone Destiny [place] NP Primary Care Physician [facility] - 10/05/22 [facility] [address] [place] [address]- Allergies, Adverse Reactions, Alerts No Known Allergies Immunizations Given and Recorded Vaccine Date Status Refusal Reason influenza virus vaccine, inactivated 1 08/16/22 Gi anne influenza virus vaccine, inactivated 03/12/18 Robert rded influenza virus vaccine, inactivated 03/14/17 Robert rded influenza virus vaccine, inactivated 05/07/16 Robert rded influenza virus vaccine, inactivated 04/20/15 Robert rded influenza virus vaccine, inactivated 03/28/11 Robert rded SARS-CoV-2 mRNA ([id number]-[id number]-[id number]) vax 10/05/21 Recorded SARS-CoV-2 (COVID-19) mRNA BNT-162b2 [...] Recorded tetanus/diphtheria/pertussis, acel(Tdap) 08/20/10 Recorded 1Result Comment: [facility]# [id number] 2Result Comment: [facility] 3Result Comment: [facility] Medications acetaminophen 325 mg oral tablet 650 [...] Refills, Maintenance, 09/07/22 15:37:00 EDT, [facility], 164, cm, 09/05/22 10:23:00 EDT, Height, 80, kg, 08/28/21 10:21:00 EDT, Dry Weight Start Date: 09/07/22 Status: Ordered busPIRone 7.5 mg oral tablet 1 tablet = 7.5 mg, By Mouth, 2 times a day, # 60 tablet, 0 Refills, Maintenance, 09/19/22 10:42:00 EDT, Tablet, [id number], Partial fill upon patient request if the prescription is for a schedule II opioid drug., 164, cm, 09/19/22 9:37:00 EDT,... Start Date: 09/19/22 Stop Date: 10/19/22 Status: Ordered Caffedrine 0 Refills, Maintenance, 08/22/22 [...] Refills, Maintenance, 09/16/22 12:22:00 EDT, [facility], 164, cm, 09/05/22 10:23:00 EDT, Height, 80, [...] Team Personnel Name: Romario Wood RN Position: [facility] RN Member Role: Primary Care Nurse Name: Destiny [place] NP Position: [facility] PCO Associate Professional Member Role: PCP Address: Address: [address] [place] [id number]- Care Team Related Persons Name: KYLER DIEGO Address: home [address] [place] [address]
--- OUTSIDE RECORDS SUMMARY | 2023-09-16 08:53 | XMS_ITS | Continuity of Care Document ---
Author Name Unknown Organization [facility] Adult Address [address] [place] [address]- Care Team Providers Care Climatologist Name Role Phone Bolivar MERA, Destiny Manzanares Primary Care Physician [facility]): 08[facility]/23 - 09/11/23 [facility] Adult [address] [place] [id number] Allergies, Adverse Reactions, Alerts No Known Allergies Immunizations Given and Recorded Vaccine Date Status Refusal Reason influenza virus vaccine, inactivated 1 08/16/22 Gi anne influenza virus vaccine, inactivated 03/12/18 Robert rded influenza virus vaccine, inactivated 03/14/17 Robert rded influenza virus vaccine, inactivated 05/07/16 Robert rded influenza virus vaccine, inactivated 04/20/15 Robert rded influenza virus vaccine, inactivated 03/28/11 Robert rded SARS-CoV-2 mRNA (lmwzyxo-dfir-oznma) vax 10/05/21 Recorded SARS-CoV-2 (COVID-19) mRNA BNT-162b2 [...] Recorded tetanus/diphtheria/pertussis, acel(Tdap) 08/20/10 Recorded 1Result Comment: [facility]# [id number] 2Result Comment: [facility] 3[facility]: [facility] Medic[facility] [...] Refills, Maintenance, 09/02/23 10:26:00 EDT, [facility], 164, cm, 06/19/23 15:19:00 EST, Height Start Date: 09/02/23 Status: Ordered busPIRone 30 mg oral tablet 1 tablet, By Mouth, 2 times a day, # 180 tablet, 1 Refills, Maintenance, 09/02/23 10:25:00 EDT, [facility], 164, cm, 06/19/23 15:19:00 EST, Height Start [...] mL, 0 Refills, Maintenance, 09/03/22 13:20:00 EDT, [facility]/pharmacy #[id number], may sub any gallon PEG prep, Drink 240mL every 15 minutes until gone, 164, cm, 09/03/22 13:02:00 EDT, Height, 80,... Start Date: 09/03/22 Status: Ordered MiraLax oral powder for reconstitution = 17 Gm, By Mouth, Daily, dissolve in water or juice. My increase to 2-3 times a day as needed for constipation, # 255 Gm, 2 Refills, Maintenance, 09/03/22 13:20:00 EDT, [facility]/pharmacy #[id number], Partial fill upon patient [...] 05/22/23 12:01:00 EST, Route to Pharmacy Electronically, [facility] STORE 26253, 164, cm, 02/27/23 12:47:00 EDT, Height, 80, [...] Personnel Name: Israel RN, Romario Vela Position: [facility] RN Member Role: Primary Care Nurse Name: Destiny [place] NP Position: [facility] PCO Associate Professional Member Role: PCP Address: Address: [address] [place] [address] [address] [place] [address]- Care Team Related Persons Name: BUTCHFlorence KYLER Address: home [address] [place] [address]
--- OUTSIDE RECORDS SUMMARY | 2023-09-16 08:53 | XMS_ITS | Continuity of Care Document ---
Author Name Unknown Organization [facility] Adult Address [address] [place] [address]- Care Team Providers Care Manufacturing Systems Engineer Name Role Phone Bolivar SLACK COOPER, Destiny Manzanares Primary Care Physician Encounter [facility] Date(s): 08/07/20 - 09/06/20 [facility] Adult [address] [place] [address]- Allergies, Adverse Reactions, Alerts Substance Reaction Severity [...] 1 capsule = 60 mg, By Mouth, 2 times a day, # 60 capsule, 6 Refills, Maintenance, 08/08/20 10:39:00EST, [id number], 161, cm, 06/26/20 15:07:00 EST, Height, 80, kg, 01/17/19 21:57:00 EDT, DryWeight Start Date: 08/08/20 Stop Date: 03/06/21 Status: Ordered folic acid 0.8 mg oral tablet 1 tablet = 0.8 mg, By Mouth, Daily, # 100 tablet, 0 Refills, Maintenance, 12/24/18 14:53:35 EDT, Tablet Start Date: 12/24/18 Status: Ordered PreserVision AREDS 2 1 capsule, [...] 09/04/20 8:54:00 EDT, Route to Pharmacy Electronically, [facility] STORE [id number], 161, cm, 06/26/20 15:07:00 EST, Height, 80, [...]
--- OUTSIDE RECORDS SUMMARY | 2023-09-16 08:53 | XMS_ITS | Continuity of Care Document ---
Author Name Unknown Organization [facility] Adult Address [address] [place] [address]- Care Team Providers Care Machine Assembler For Puller Over Name Role Phone Bolivar MERA, Destiny Manzanares Primary Care Physician [place] [facility] [place]s): 07/05/22 - 08/04/22 [facility] Adult [address] [place] [address]- Allergies, Adverse Reactions, Alerts No Known Allergies [...] # 90 tablet, 1 Refills, [facility], 164, cm, 09/19/21 12:39:00 EDT,Height, 80, kg, [...] 3 Refills, Maintenance, 09/19/21 13:47:00 EDT, ECCapsule, [facility]/pharmacy #[id number], Partial fill upon patient request if the prescription is for a schedule II opioid drug., 164, cm, 09/19/21 12:39:00 EDT, H... Start Date: 09/19/21 Stop Date: 09/14/22 Status: Ordered gabapentin 600 mg oral tablet 1 tablet = 600 mg, By Mouth, Daily at bedtime, # 30 tablet, 6 Refills, Maintenance, 05/29/22 14:04:00 EST, Tablet, [facility]/pharmacy #[id number], Partial fill upon patient request [...] 03/18/22 0:31:00 EDT, Route to Pharmacy Electronically, [facility] STORE 39253, 164, cm, 09/19/21 12:39:00 EDT, Height, 80, [...] Personnel Name: Israel QUIROZ, Romario Vela Position: [facility] RN Member Role: Primary Care Nurse Name: Bolivar MERA, Destiny Manzanares Position: [facility] PCO Associate Professional Member Role: PCP Address: Address: [address] [place] [address]- Care Team Related Persons Name: KYLER DIEGO Address: home [address] [place] [id number]
--- OUTSIDE RECORDS SUMMARY | 2023-09-16 08:53 | XMS_ITS | Continuity of Care Document ---
Author Name Unknown Organization [facility] Adult Address [address] [place] [address]- Care Team Providers Care Yard Assistant Name Role Phone Destiny [place] NP Primary Care Physician [facility] Date[facility]s): 08/30/22 - 09/29/22 [facility] Adult [address] [place] [address]- Allergies, Adverse Reactions, Alerts No Known Allergies Immunizations Given and Recorded Vaccine Date Status Refusal Reason influenza virus vaccine, inactivated 1 08/16/22 Gi anne influenza virus vaccine, inactivated 03/12/18 Robert rded influenza virus vaccine, inactivated 03/14/17 Robert rded influenza virus vaccine, inactivated 05/07/16 Robert rded influenza virus vaccine, inactivated 04/20/15 Robert rded influenza virus vaccine, inactivated 03/28/11 Robert rded SARS-CoV-2 mRNA (qyyjjrt-nlon-emgvh) vax 10/05/21 Recorded SARS-CoV-2 (COVID-19) mRNA BNT-162b2 [...] Recorded tetanus/diphtheria/pertussis, acel(Tdap) 08/20/10 Recorded 1Result Comment: [facility]# [id number] 2Result Comment: [facility] 3Result Comment: [facility] Medications acetaminophen 325 mg oral tablet [...] Refills, Maintenance, 09/07/22 15:37:00 EDT, [facility], 164, cm, 09/05/22 10:23:00 EDT, Height, 80, [...] Refills, Maintenance, 09/16/22 12:22:00 EDT, [facility], 164, cm, 09/05/22 10:23:00 EDT, Height, 80, [...] Team Personnel Name: Romario Wood RN Position: [facility] RN Member Role: Primary Care Nurse Name: Destiny [place] NP Position: [facility] PCO Associate Professional Member Role: PCP Address: Address: [address] [place] [address]- Care Team Related Persons Name: KYLER DIEGO Address: home [address] [place] [address]
--- OUTSIDE RECORDS SUMMARY | 2023-09-16 08:53 | XMS_ITS | Continuity of Care Document ---
Author Name Unknown Organization [facility] Adult Address [address] [place] [address]- Care Team Providers Care Environmental Services Technician Name Role Phone Bolivar AIR COMPRESSOR OPERATOR, Destiny Manzanares Primary Care Physician [place] [facility] Date(s): 07/18/20 - 08/17/20 [facility] Adult [address] [place] [address]- Allergies, Adverse Reactions, Alerts Substance Reaction Severity [...] 1, tablet, By Mouth, Daily at bedtime, needs medicare wellness appt before anymore refills, # 30 tablet, Refills 2, Tot. Refills 2, Soft Stop, 02/22/20 16:13:00 EDT, Route to Pharmacy Electronically, [facility]/pharmacy #[id number], 161, cm, 01/19/19 7:40:0... Start Date: 02/22/20 Stop Date: 05/22/20 Status: Ordered Vitamin B12 1000 mcg oral [...]
--- OUTSIDE RECORDS SUMMARY | 2023-09-16 08:53 | XMS_ITS | Continuity of Care Document ---
Author Name Unknown Organization [facility] Adult Address [address] [place] [address]- Care Team Providers Care Physicist Solid Earth Name Role Phone Bolivar MERA, Destiny Manzanares Primary Care Physician [place] [facility] [place] 04/15/22 - 05/15/22 [facility] Adult [address] [place] [address]- Allergies, Adverse Reactions, Alerts No Known Allergies [...] # 90 tablet, 1 Refills, [facility], 164, cm, 09/19/21 12:39:00 EDT,Height, 80, kg, [...] 3 Refills, Maintenance, 09/19/21 13:47:00 EDT, ECCapsule, [facility]/pharmacy #[id number], Partial fill upon patient request if the prescription is for a schedule II opioid drug., 164, cm, 09/19/21 12:39:00 EDT, H... Start Date: 09/19/21 Stop Date: 09/14/22 Status: Ordered gabapentin 600 mg oral tablet 1 tablet = 600 mg, By Mouth, Daily at bedtime, # 30 tablet, 0 Refills, Maintenance, 11/11/22 9:49:00 EST, Tablet, [facility]/pharmacy #[id number], Partial fill upon patient request if the prescription is for a schedule II opioid drug., 164, cm, 09/19/21 12:39:00 E... Start Date: 04/26/22 Status: Ordered Nature's Bounty Red Krill Oil [...] 03/18/22 0:31:00 EDT, Route to Pharmacy Electronically, [facility] STORE 72730, 164, cm, 09/19/21 12:39:00 EDT, Height, 80, [...] Personnel Name: Israel RN, Romario Vela Position: [facility] RN Member Role: Primary Care Nurse Name: Bolivar MERA, Destiny Manzanares Position: [facility] PCO Associate Professional Member Role: PCP Address: Address: [address] [place] [address]- Care Team Related Persons Name: KYLER DIEGO Address: home [address] [place] [id number]
--- OUTSIDE RECORDS SUMMARY | 2023-09-16 08:53 | XMS_ITS | Continuity of Care Document ---
Author Name Unknown Organization [facility] Address Unknown Care Team Providers Care Guide Alpine Name Role Phone Bolivar MERA, Destiny Manzanares Primary Care Physician Encounter [facility] Date(s): 03/05/21 - 04/04/21 [facility] Allergies, Adverse Reactions, Alerts Substance Reaction Severity [...] # 180 capsule, 2 Refills, [facility], 161, cm, 12/20/20 12:01:00 EDT, Height Start [...] 09/04/20 8:54:00 EDT, Route to Pharmacy Electronically, [facility] 39614, 161, cm, 06/26/20 15:07:00 EST, Height, 80, [...]
--- OUTSIDE RECORDS SUMMARY | 2023-09-16 08:53 | XMS_ITS | Continuity of Care Document ---
Author Name Unknown Organization [facility] Adult Address [address] [place] [address]- Care Team Providers Care Cardiology Specialist Name Role Phone Bolivar IRONWORKER MACHINE OPERATOR, Destiny Manzanares Primary Care Physician [place] [facility] [place](s): 08/18/20 - 09/17/[address] [facility] Adult [address] [place] [address]- Allergies, Adverse Reactions, Alerts Substance Reaction Severity [...] 60 capsule, 6 Refills, Maintenance, 08/08/20 10:39:00EST, [facility]/pharmacy #[id number], 161, cm, 06/26/20 15:07:00 EST, Height, [...] 09/04/20 8:54:00 EDT, Route to Pharmacy Electronically, [facility] STORE 10161, 161, cm, 06/26/20 15:07:00 EST, Height, 80, [...]
--- OUTSIDE RECORDS SUMMARY | 2023-09-16 08:53 | XMS_ITS | Continuity of Care Document ---
Author Name Unknown Organization [facility] ter Address [address] [place] [address]- Care Team Providers Care Web Consultant Name Role Phone Bolivar MERA, Destiny Manzanares Primary Care Physician [facility] Date[facility]s): 08/03/21 - 09/02/[address] [address] Attending Physician: AdmtrSoy Admitting Physician: Admtr, Ar8 Referring Physician: Admtr, [...] # 90 tablet, 1 Refills, [facility], 161, cm, 12/20/20 12:01:00 EDT,Height Start Date: [...] opioid drug. Start Date: 08/09/21 Status: Ordered gabapentin 600 mg oral tablet [...] at bedtime, # 90 tablet, Refills 1, Route to Pharmacy Electronically, [facility] ST[facility] 68180, 161, cm, 12/20/20 12:01:00 EDT, Height Start Date: 04/20/21 Status: Ordered triamcinolone 0.1% topical lotion 1 [...]
--- OUTSIDE RECORDS SUMMARY | 2023-09-16 08:53 | XMS_ITS | Continuity of Care Document ---
Author Name Unknown Organization [facility] Adult Address [address] [place] [address]- Care Team Providers Care Enrichment Specialist Name Role Phone Bolivar EGG TRAYER, Destiny Manzanares Primary Care Physician En[place] [facility] Date(s): 02/22/20 - 03/23/20 [facility] Adult [address] [place] [address] [facility] Allergies, Adverse Reactions, Alerts Substance Reaction Severity [...] tablet, By Mouth, Daily, # 90 tablet, 0 Refills, Maintenance, 11/15/19 16:44:00 EDT, [facility], 161, cm, 01/19/19 7:40:00 EDT, Height, 80, kg, 01/17/19 21:57:00 EDT, Dry Weight Start Date: 11/15/19 Status: Ordered atorvastatin 20 mg oral tablet 1 tablet, By Mouth, Daily, needs appt before anymore refills, # 30 tablet, 2 Refills, Maintenance, 02/22/20 16:16:00 EDT, [id number], 161, cm, 01/19/19 7:40:00 EDT, Height, 80, kg, 01/17/19 21:57:00 EDT, Dry Weight Start Date: 02/22/20 Status: Ordered buPROPion 100 mg oral tablet [...] capsule, By Mouth, Daily, # 90 capsule, 1 Refills, Maintenance, 08/17/19 15:12:00 EST, [facility], 161, cm, 01/19/19 7:40:00 EDT, Height, 80, kg, 01/17/19 21:57:00 EDT, Dry Weight Start Date: 08/17/19 Status: Ordered folic acid 0.8 mg oral [...] Pharmacy Electronically, [facility]/pharmacy #[id number], 504, cm, 01/19/19 7:40:0... Start Date: 02/22/20 Stop [...]
--- OUTSIDE RECORDS SUMMARY | 2023-09-16 08:53 | XMS_ITS | Continuity of Care Document ---
Author Name Unknown Organization [facility] Adult Address [address] [place] [address]- Care Team Providers Care Gum Scoring Machine Operator Name Role Phone Bolivar MERA, Destiny Manzanares Primary Care Physician [facility] Date[facility]s): 12/13/22 - 01/12/23 [facility] Adult [address] [place] [phone] Allergies, Adverse Reactions, Alerts No Known Allergies Immunizations Given and Recorded Vaccine Date Status Refusal Reason influenza virus vaccine, inactivated 1 08/16/22 Gi anne influenza virus vaccine, inactivated 03/12/18 Robert rded influenza virus vaccine, inactivated 03/14/17 Robert rded influenza virus vaccine, inactivated 05/07/16 Robert rded influenza virus vaccine, inactivated 04/20/15 Robert rded influenza virus vaccine, inactivated 03/28/11 Robert rded SARS-CoV-2 mRNA ([id number]-okvn-mqdmf) vax 10/05/21 Recorded SARS-CoV-2 (COVID-19) mRNA BNT-162b2 [...] Recorded tetanus/diphtheria/pertussis, acel(Tdap) 08/20/10 Recorded 1Result Comment: [facility]# [id number] 2Result Comment: [facility] 3[facility]: [facility] [...] Refills, Maintenance, 09/07/22 15:37:00 EDT, [facility], 164, cm, 09/05/22 10:23:00 EDT, Height, 80, kg, 08/28/21 10:21:00 EDT, Dry Weight Start Date: 09/07/22 Status: Ordered busPIRone 15 mg oral tablet 1 tablet = 15 mg, By Mouth, 2 times a day, # 180 tablet, 0 Refills, Maintenance, 11/20/22 15:35:00 EDT, Tablet, [facility]/pharmacy #[id number], Partial fill upon patient [...] 6 Refills, Maintenance, 05/29/22 14:04:00 EST, Tablet, [facility]/pharmacy #[id number], Partial fill upon patient request if the prescription is for a schedule II opioid drug., 164, cm, 09/19/21 12:39:00... Start Date: 05/29/22 Stop Date: 12/25/22 Status: Ordered Golytely - oral powder for reconstitution See Instructions, Drink 240mL every 15 minutes until gone, # 4,000 mL, 0 Refills, Maintenance, 09/03/22 13:20:00 EDT, [facility]/pharmacy #[id number], may sub any gallon [...] Gm, 2 Refills, Maintenance, 09/03/22 13:20:00 EDT, [facility]/pharmacy #[id number], Partial fill upon patient [...] 11/25/22 14:22:00 EDT, Route to Pharmacy Electronically, [facility]/pharmacy #[id number], Partial fill upon patient request if the [...] Associate Professional Member Role: PCP Address: Address: [address] [place] [id number] Care Team Related Persons Name: KYLER DIEGO Address: home [address] [place] [address]
--- OUTSIDE RECORDS SUMMARY | 2023-09-16 08:53 | XMS_ITS | Continuity of Care Document ---
Author Name Unknown Organization [facility] Adult Address [address] [place] [address]- Care Team Providers Care Precinct I Police Sergeant Name Role Phone Destiny [place] NP Primary Care Physician [place] [facility] [place] [place] Date[place]s): 12/20/20 - 12/27/20 [facility] Adult [address] [place] [address]- Encounter Diagnosis Anxiety and depression(Discharge Diagnosis) - 12/20/20 Attending Physician: Destiny [place] NP Allergies, Adverse Reactions, Alerts Substance Reaction Severity [...] 60 capsule, 6 Refills, Maintenance, 08/08/20 10:39:00EST, [facility]/pharmacy #[id number], 161, cm, 06/26/20 15:07:00 EST, Height, [...] 09/04/20 8:54:00 EDT, Route to Pharmacy Electronically, [facility] STORE 66876, 161, cm, 06/26/20 15:07:00 EST, Height, 80, [...] Restless leg syndrome(Confirmed) Active Thyroid nodule(Confirmed) Active Diagnosis Diagnosis Type Effective Dates Health Status Clinical Service Informant Anxiety and depression Discharge Diagnosis 12/20/20 Vital Signs Most recent to oldest [Reference Range]: 1 Height 161 cm (12/20/20 12:01 PM) Weight 78 kg (12/20/20 12:01 PM) Body Mass Index [18.5-24.99] 30.09 *>HHI* (12/20/20 12:01 PM) Weight Obtained Via Patient/family state d (12/20/20 12:01 PM) Social History Social History Type Response Smoking Status Former smoker, quit more than 30 days ago entered on: 12/24/18 Sex Female
--- OUTSIDE RECORDS SUMMARY | 2023-09-16 08:53 | XMS_ITS | Continuity of Care Document ---
Author Name Unknown Organization [facility] Adult Address [address] [place] [address]- Care Team Providers Care Highwall Drill Operator Name Role Phone Bolivar MERA, Destiny Manzanares Primary Care Physician [facility] Date[facility]s): 05/25/23 - 06/24/23 [facility] Adult [address] [place] [id number] Allergies, Adverse Reactions, Alerts No Known Allergies Immunizations Given and Recorded Vaccine Date Status Refusal Reason influenza virus vaccine, inactivated 1 08/16/22 Gi anne influenza virus vaccine, inactivated 03/12/18 Robert rded influenza virus vaccine, inactivated 03/14/17 Robert rded influenza virus vaccine, inactivated 05/07/16 Robert rded influenza virus vaccine, inactivated 04/20/15 Robert rded influenza virus vaccine, inactivated 03/28/11 Robert rded SARS-CoV-2 mRNA ([id number]-[id number]-yicsq) vax 10/05/21 Recorded SARS-CoV-2 (COVID-19) mRNA BNT-162b2 [...] Recorded tetanus/diphtheria/pertussis, acel(Tdap) 08/20/10 Recorded 1Result Comment: [facility]# [id number] 2[facility] Comment: [facility] 3[facility]: [facility] Medications acetaminophen 325 mg oral tablet 650 [...] Refills, Maintenance, 02/09/23 21:45:00 EDT, [facility], 164, cm, 11/20/22 15:21:00 EDT, Height, 80, kg, 08/28/21 10:21:00 EDT, Dry Weight Start Date: 02/09/23 Status: Ordered busPIRone 15 mg oral tablet 1 tablet, By Mouth, 2 times a day, # 180 tablet, 1 Refills, Maintenance, 02/09/23 21:46:00 EDT, [facility], 164, cm, 11/20/22 15:21:00 EDT, Height, 80, kg, 08/28/21 10:21:00 EDT, Dry Weight Start Date: 02/09/23 Status: Ordered busPIRone 30 mg oral tablet 1 tablet = 30 mg, By Mouth, 2 times a day, # 60 tablet, 6 Refills, Maintenance, 02/27/23 13:05:00 EDT, Tablet, [facility]/pharmacy #[id number], Partial fill upon patient request if [...] 4 Refills, Maintenance, 05/26/23 10:44:00 EST, Tablet, [facility]/pharmacy #[id number], Partial fill upon patient request if [...] 05/22/23 12:01:00 EST, Route to Pharmacy Electronically, [facility] STORE 38122, 164, cm, 02/27/23 12:47:00 EDT, Height, 80, [...] Team Personnel Name: Romario Wood RN Position: [facility] RN Member Role: Primary Care Nurse Name: Destiny [place] NP Position: [facility] PCO Associate Professional Member Role: PCP Address: Address: [address] [place] [address] [address] [place] [address]- Care Team Related Persons Name: KYLER DIEGO Address: home [address] [place] [address]
--- OUTSIDE RECORDS SUMMARY | 2023-09-16 08:53 | XMS_ITS | Continuity of Care Document ---
Author Name Unknown Organization [facility] ter Address [address] [place] [address]- Care Team Providers Care Manager Hvac Name Role Phone Bolivar MERA, Destiny Manzanares Primary Care Physician Encounter [facility] Date(s): 08/27/21 - 08/28/[address] [address]- Encounter Diagnosis Hip dislocation, left(Final) - 08/27/21 Discharge Disposition: A-D/C Home Attending Physician: Andres Vargas MD Admitting Physician: Andres Vargas MD Referring Physician: Not on Staff, Referring MD Allergies, Adverse Reactions, Alerts No Known Allergies Immunizations Given and Recorded Vaccine Date Status Refusal Reason SARS-CoV-2 (COVID-19) mRNA BNT-162b2 vac 1 06/29/20 Recorded Zoster Vaccine Live 03/16/20 Recorded Influenza Virus Vaccine (oldterm) 03/16/20 Recorde d Influenza Virus Vaccine (oldterm) 03/22/19 Recorde d zoster vaccine, inactivated 2 03/01/20 Recorded [facility] Medications acetaminophen 325 mg oral [...] Mouth, Daily, # 90 tablet, 1 Refills, [facility] STORE 70528, 161, cm, 12/20/20 12:01:00 EDT,Height Start Date: [...] opioid drug. Start Date: 12/20/20 Status: Ordered OxyCODONE IR Tablet 10 mg, Tablet, By Mouth, Every 3 hours, PRN for Pain , Moderate, Routine, 08/27/21 22:24:00 EDT Start Date: 08/27/21 Stop Date: 08/28/21 Status: Discontinued pantoprazole 40 mg oral delayed release tablet [...] tablet, Refills 1, Route to Pharmacy Electronically, [facility], 161, cm, 12/20/20 12:01:00 EDT, Height Start [...] Active Thyroid nodule(Confirmed) Active Tubular adenoma(Confirmed) Active Results Radiology Reports * Exam Date Time Procedure Performing Provider Status 08/27/21 10:37 PM XR Hip w/Pelvis 2-3 View Left Ann Nick (Verified) Notes: (XR Hip w/Pelvis 2-3 View Left) Reason For Exam: Other: RESULT: XR Hip w/Pelvis 2-3 View Left XR Hip w/Pelvis 2-3 View Left Hx of Present Illness: Pt reports she was standing and twisted, feeling a pop in her hip causing her to fall.; Reason: Other:; Clinical Question(s): Other:; s p left DANIEL reduction COMPARISON: None. FINDINGS: No evidence of periprosthetic fracture. No radiographic evidence of complication. Persistent lucency noted in the left greater trochanter which appears similar to previous exams. IMPRESSION: No acute abnormality identified within the left hip joint. WSN: [id number] Ordering Physician: Doug Bahena Dictated By: Rayray Luo MD Dictated Date/Time: 08/27/21 10:39 p Reviewed By: Rayray Luo MD Signed By: Rayray Luo MD Signed Date/Time: 08/27/21 10:39 pm Transcribed By: LOVE Transcribed Date/Time: 08/27/21 10:38 pm * Exam Date Time Procedure Performing Provider Status 08/27/21 9:55 PM Pelvis 1 or 2 Views Nelson Whitfield (Verified) Notes: (Pelvis 1 or 2 Views) Reason For Exam: With Pain;Trauma RESULT: Pelvis 1 or 2 Views Pelvis 1 or 2 Views Hx of Present Illness: Pt reports she was standing and twisted, feeling a pop in her hip causing her to fall.; Reason: Trauma; With Pain; Clinical Question(s): Fracture COMPARISON: Previous exam same day FINDINGS: Previously seen left hip arthroplasty dislocation has been reduced. No fractures identified. Normal soft tissues. IMPRESSION: Reduction of left hip arthroplasty dislocation. WSN: [id number] Ordering Physician: Telly Wellington MD Dictated By: Rayray Luo MD Dictated Date/Time: 08/27/21 10:01 p Reviewed By: Rayray Luo MD Signed By: Rayray Luo MD Signed Date/Time: 08/27/21 10:01 pm Transcribed By: LOVE Transcribed Date/Time: 08/27/21 9:58 pm * Exam Date Time Procedure Performing Provider Status 08/27/21 8:44 PM XR Hip w/Pelvis 2-3 View Left Freda López; Jaime (Verified) Notes: (XR Hip w/Pelvis 2-3 View Left) Reason For Exam: With Pain;Trauma RESULT: XR Hip w/Pelvis 2-3 View Left XR Hip w/Pelvis 2-3 View Left Hx of Present Illness: Pt reports she was standing and twisted, feeling a pop in her hip causing her to fall.; Reason: Trauma; With Pain; Clinical Question(s): Fracture COMPARISON: 08/08/2021 FINDINGS: There is dislocation of the patient's left hip arthroplasty. No radiographic evidence of complication. The right hip arthroplasty appears unchanged from previous examination. No definite discrete fracture identified. Some lucent areas are noted in the left greater trochanter which likely are similar to the previous exam. IMPRESSION: Dislocation of the patient's left hip arthroplasty. WSN: [id number] Ordering Physician: Telly Wellington MD Dictated By: Rayray Luo MD Dictated Date/Time: 08/27/21 8:48 pm Reviewed By: Rayray Luo MD Signed By: Rayray Luo MD Signed Date/Time: 08/27/21 8:48 pm Transcribed By: LOVE Transcribed Date/Time: 08/27/21 8:47 pm Vital Signs Most recent to oldest [Reference Range]: 1 2 3 Height 164 cm (08/28/21 10:21 AM) 164 cm (08/28/21 2:47 AM) 164 cm (08/27/21 8:18 PM) Weight 80 kg (08/28/21 10:21 AM) 80 kg (08/28/21 2:47 AM) 80 kg (08/27/21 8:18 PM) Oxygen Saturation [94-100 %] 96 % (08/28/21 12:46 PM) 94 % (08/28/21 10:21 AM) 98 % (08/28/21 7:15 AM) Pulse Rate [55-90 bpm] 80 bpm (08/28/21 12:46 PM) 83 bpm (08/28/21 10:21 AM) 70 bpm (08/28/21 7:15 AM) Body Mass Index [18.5-24.99] 29.74 *H* (08/28/21 10:21 AM) 29.74 *H* (08/28/21 2:47 AM) Blood Pressure [90-138/55-84 mm Hg] 123/51mm Hg (08/28/21 12:46 PM) 108/52mm Hg (08/28/21 10:21 AM) 143/86mm Hg *H* (08/28/21 7:15 AM) Respiratory Rate [16-30 br/min] 16 br/min (08/28/21 12:46 PM) 15 br/min *L* (08/28/21 12:28 PM) 16 br/min (08/28/21 10:21 AM) Temperature [96.8-100.4 DegF] 98.7 DegF (08/28/21 12:46 PM) 98.4 DegF (08/28/21 10:21 AM) 98.8 DegF (08/28/21 7:15 AM) Liters per Minute 0 L/min (08/28/21 10:21 AM) Mode of Delivery (Oxygen) Room air (08/28/21 12:46 PM) Room air (08/28/21 10:21 AM) Room air (08/28/21 7:15 AM) Blood pressure sites Arm, right (08/28/21 10:21 AM) Arm, right (08/28/21 2:47 AM) Temperature Route Oral (08/28/21 12:46 PM) Oral (08/28/21 10:21 AM) Oral (08/28/21 7:15 AM) Dry Weight 80 kg (08/28/21 10:21 AM) 80 kg (08/28/21 2:47 AM) 80 kg (08/27/21 8:18 PM) Weight Obtained Via Patient/family state d (08/27/21 8:18 PM) Dry Weight Obtained Via Patient/family s tated (08/27/21 8:18 PM) Social History Social History Type Response Smoking Status Former smoker, quit more than 30 days ago entered on: 12/24/18 Sex Female
--- OUTSIDE RECORDS SUMMARY | 2023-09-16 08:54 | XMS_ITS | Continuity of Care Document ---
Author Name Unknown Organization [facility] Adult Address [address] [place] [address]- Care Team Providers Care Operations Support Professionals Name Role Phone Destiny Lutz NP Primary Care Physician [facility]counter [facility] Date(s): 12/08/22 - 01/09/23 [facility] Adult [address] [place] [id number] Attending Physician: Destiny Lutz NP Allergies, Adverse [...] vaccine, inactivated 03/28/11 Robert rded SARS-CoV-2 mRNA (aqvgbsg-oyao-wosnl) vax 10/05/21 Recorded SARS-CoV-2 (COVID-19) mRNA BNT-162b2 [...] Recorded tetanus/diphtheria/pertussis, acel(Tdap) 08/20/10 Recorded 1Result Comment: [facility]# [id number] 2[facility]ations [...] Refills, Maintenance, 09/07/22 15:37:00 EDT, [facility], 164, cm, 09/05/22 10:23:00 EDT, Height, 80, kg, 08/28/21 10:21:00 EDT, Dry Weight Start Date: 09/07/22 Status: Ordered busPIRone 15 mg oral tablet 1 tablet = 15 mg, By Mouth, 2 times a day, # 180 tablet, 0 Refills, Maintenance, 11/20/22 15:35:00 EDT, Tablet, [facility]/pharmacy [...] 6 Refills, Maintenance, 05/29/22 14:04:00 EST, Tablet, [facility]/pharmacy #[id number], Partial fill upon patient request if the prescription is for a schedule II opioid drug., 164, cm, 09/19/21 12:39:00... Start Date: 05/29/22 Stop Date: 12/25/22 Status: Ordered Golytely - oral powder for reconstitution See Instructions, Drink 240mL every 15 minutes until gone, # 4,000 mL, 0 Refills, Maintenance, 09/03/22 13:20:00 EDT, [facility]/pharmacy #[id number], may sub any gallon PEG prep, Drink 240mL every 15 minutes until gone, 164, cm, 09/03/22 13:02:00 EDT, Height, 80,... Start Date: 09/03/22 Status: Ordered MiraLax oral powder for reconstitution = 17 Gm, By Mouth, Daily, dissolve in water or juice. My increase to 2-3 times a day as needed for constipation, # 255 Gm, 2 Refills, Maintenance, 09/03/22 13:20:00 EDT, [facility]/pharmacy #[id number], Partial [...] 11/25/22 14:22:00 EDT, Route to Pharmacy Electronically, [facility]/pharmacy #[id number], Partial fill upon patient request if the [...] Team Personnel Name: Romario Wood RN Position: [facility] RN Member Role: Primary Care Nurse Name: Destiny Lutz NP Position: [facility] PCO Associate Professional Member Role: PCP Address: Address: [address] [place] [address] [address] [place] [address]- Care Team Related Persons Name: BRANDIE KYLER Address: home [address] [place] [id number]
--- OUTSIDE RECORDS SUMMARY | 2023-09-16 08:54 | XMS_ITS | Continuity of Care Document ---
Author Name Unknown Organization [facility] Adult Address [address] [place] [address]- Care Team Providers Care Photo Checker Name Role Phone Bolivar MERA, Destiny Manzanares Primary Care Physician Encounter [facility] Date(s): 09/29/20 - 10/06/20 [facility] Adult [address] [place] [address]- Encounter Diagnosis Encounter for Medicare annual wellness exam(Discharge Diagnosis) - 09/29/20 Anxiety and depression(Discharge Diagnosis) - 09/29/20 Colon adenoma(Discharge Diagnosis) - 09/29/20 Glaucoma(Discharge Diagnosis) - 09/29/20 Hypercholesterolemia(Discharge Diagnosis) - 09/29/20 Meningioma(Discharge Diagnosis) - 09/29/20 Osteopenia(Discharge Diagnosis) - 09/29/20 PTSD (post-traumatic stress disorder)(Discharge Diagnosis) - 09/29/20 Attending Physician: Destiny Lutz NP Allergies, Adverse [...] tablet, 5 Refills, Maintenance, 08/07/20 8:35:00 EST, [facility]/pharmacy #[id number], 161, cm, 06/26/20 15:07:00 EST, Height, 80, kg, 01/17/19 21:57:00 EDT, Dry Weight Start Date: 08/07/20 Status: Ordered duloxetine 60 mg oral enteric coated capsule 1 capsule = 60 mg, By Mouth, 2 times a day, # 60 capsule, 6 Refills, Maintenance, 08/08/20 10:39:00EST, [facility]/pharmacy #[id number], 161, cm, 06/26/20 15:07:00 [...] 09/04/20 8:54:00 EDT, Route to Pharmacy Electronically, [facility] STORE 27651, 161, cm, 06/26/20 15:07:00 EST, Height, 80, [...] Effective Dates Health Status Clinical Service Informant Encounter for Medicare annual wellness exam Discharge Diagnosis 09/29/20 Anxiety and depression Discharge Diagnosis 09/29/20 Colon adenoma Discharge Diagnosis 09/29/20 Glaucoma Discharge Diagnosis 09/29/20 Hypercholesterolemia Discharge Diagnosis 09/29/20 Meningioma Discharge Diagnosis 09/29/20 Osteopenia Discharge Diagnosis 09/29/20 PTSD (post-traumatic stress disorder) Discharge Diagnosis 09/29/20 Vital Signs Most recent to oldest [Reference Range]: 1 2 Height 161 cm (09/29/20 1:48 PM) 161 cm (09/29/20 12:57 PM) Weight 78.1 kg (09/29/20 12:57 PM) Oxygen Saturation [94-100 %] 95 % (09/29/20 12:57 PM) Pulse Rate [55-90 bpm] 86 bpm (09/29/20 12:57 PM) Body Mass Index [18.5-24.99] 30.13 *>HHI* (09/29/20 12:57 PM) Blood Pressure [90-138/55-84 mm Hg] 136/ 62mm Hg (09/29/20 1:48 PM) 153/82mm Hg *H* (09/29/20 12:57 PM) Mode of Delivery (Oxygen) Room air (09/29/20 12:57 PM) Blood pressure sites Arm, left (09/29/20 1:48 PM) Arm, right (09/29/20 12:57 PM) Weight Obtained Via Standing scale (09/29/20 12:57 PM) Social History Social History Type Response Smoking Status Former smoker, quit more than 30 days ago entered on: 12/24/18 Sex Female
--- OUTSIDE RECORDS SUMMARY | 2023-09-16 08:54 | XMS_ITS | Continuity of Care Document ---
Author Name Unknown Organization [facility] Adult Address [address] [place] [address]- Care Team Providers Care Human Services Manager Name Role Phone Destiny Lutz NP Primary Care Physician Encounter [facility] Date(s): 06/26/20 - 07/03/20 [facility] Adult [address] [place] [address]- Encounter Diagnosis Anxiety and depression(Discharge Diagnosis) - 06/26/20 Attending Physician: Destiny Lutz NP Allergies, Adverse Reactions, Alerts Substance Reaction Severity Status NKA Active Immunizations Given and Recorded Vaccine Date Status Refusal Reason Zoster Vaccine Live 03/16/20 Recorded Influenza Virus Vaccine (oldterm) 03/16/20 Recorde d Influenza Virus Vaccine (oldterm) 03/22/19 Recorde d Medications aspirin 81 mg oral tablet 1 tablet = 81 mg, By Mouth, Daily, # 30 tablet, 0 Refills, Maintenance, 12/24/18 14:55:21 EDT, Tablet Start Date: 12/24/18 Status: Ordered atorvastatin 20 mg oral tablet 1 tablet, By Mouth, Daily, # 30 tablet, 2 Refills, Maintenance, 06/28/20 8:50:00 EST, [id number], 161, cm, 06/26/20 15:07:00 EST, Height, 80, kg, 01/17/19 21:57:00 EDT, Dry Weight Start Date: 06/28/20 Status: Ordered duloxetine 30 mg oral enteric coated capsule 1 capsule = 30 mg, By Mouth, Daily, 60 mg in the morning and 30 mg in the afternoon, # 30 capsule, 1 Refills, Maintenance, 05/18/20 13:45:00 EST, [id number], Partial fill upon patient requestif the prescription is for a schedule II opioid dominga... Start Date: 05/18/20 Stop Date: 07/17/20 Status: Ordered duloxetine 60 mg oral enteric coated capsule 1 capsule, By Mouth, Daily, 60 mg in the morning and 30 mg in the afternoon., # 30 capsule, 1 Refills, Maintenance, 05/18/20 13:42:00 EST, [facility]/pharmacy #[id number], total dose 90 mg, 161, cm, 05/18/20 12:58:00 EST, Height, 80, kg, 01/17/19 21:57:00 EDT, Dry... Start Date: 05/18/20 Stop Date: 07/17/20 Status: Ordered folic acid 0.8 mg oral [...] 02/22/20 16:13:00 EDT, Route to Pharmacy Electronically, [facility]/pharmacy #[id number], 161, cm, 01/19/19 7:40:0... Start Date: [...] Service Informant Anxiety and depression Discharge Diagnosis 06/26/20 Vital Signs Most recent to oldest [Reference Range]: 1 Height 161 cm (06/26/20 3:07 PM) Social History Social History Type Response Smoking Status Former smoker, quit more than 30 days ago entered on: 12/24/18 Sex Female
--- OUTSIDE RECORDS SUMMARY | 2023-09-16 08:54 | XMS_ITS | Continuity of Care Document ---
Author Name Unknown Organization [facility] Adult Address [address] [place] [address]- Care Team Providers Care Morphologist Name Role Phone Bolivar DANCER OR CHOREOGRAPHER, Destiny Manzanares Primary Care Physician Encounter [facility] Date(s): 06/30/20 - 07/30/20 [facility] Adult [address] [place] [address]- Allergies, Adverse Reactions, Alerts Substance Reaction Severity [...] Weight Start Date: 06/28/20 Status: Ordered duloxetine 60 mg oral enteric coated capsule 1 capsule = 60 mg, By Mouth, 2 times a day, # 60 capsule, 1 Refills, Maintenance, 07/21/20 12:18:00EST Start Date: 07/21/20 Stop Date: 09/19/20 Status: Ordered folic acid 0.8 mg oral [...] 02/22/20 16:13:00 EDT, Route to Pharmacy Electronically, [facility]/pharmacy #[id number], 161, cm, 01/19/19 7:40:0... Start Date: [...]
--- OUTSIDE RECORDS SUMMARY | 2023-09-16 08:54 | XMS_ITS | Continuity of Care Document ---
Author Name Unknown Organization [facility] Adult Address [address] [place] [address]- Care Team Providers Care Work Checker Name Role Phone Bolivar MINGLER OPERATOR, Destiny Manzanares Primary Care Physician Encounter [facility] [place] Date(s): 02/22/20 - 03/23/20 [facility] Adult [address] [place] [address] [facility] Allergies, Adverse Reactions, Alerts Substance Reaction Severity [...] Refills, Maintenance, 11/15/19 16:44:00 EDT, [facility], 161, cm, 01/19/19 7:40:00 EDT, Height, 80, [...] Refills, Maintenance, 08/17/19 15:12:00 EST, [facility], 161, cm, 01/19/19 7:40:00 EDT, Height, 80, [...] 02/22/20 16:13:00 EDT, Route to Pharmacy Electronically, [facility]/pharmacy #[id number], 237, cm, 01/19/19 7:40:0... Start Date: 02/22/20 Stop [...]
--- OUTSIDE RECORDS SUMMARY | 2023-09-16 08:54 | XMS_ITS | Continuity of Care Document ---
Author Name Unknown Organization [facility] Adult Address [address] [place] [address]- Care Team Providers Care Top Lift Compressor Name Role Phone Bolivar MERA, Destiny Manzanares Primary Care Physician Encounter [facility] Date(s): 09/19/21 - 10/19/21 [facility] Adult [address] [place] [address]- Attending Physician: AdmSoy rolon Admitting Physician: Admtr, [id number] Referring Physician: Admtr, [...] Mouth, Daily, # 90 tablet, 1 Refills, [facility] 77352, 161, cm, 12/20/20 12:01:00 EDT,Height Start Date: [...] capsule, 3 Refills, Maintenance, 09/19/21 13:47:00 EDT, [facility], [facility]/pharmacy #[id number], Partial fill upon patient request [...] 10/08/21 8:59:00 EDT, Route to Pharmacy Electronically, [facility]/pharmacy #[id number], 164, cm, 09/19/21 12:39:00 EDT, Height, [...]
--- OUTSIDE RECORDS SUMMARY | 2023-09-16 08:54 | XMS_ITS | Continuity of Care Document ---
Author Name Unknown Organization [facility] Adult Address [address] [place] [address]- Care Team Providers Care Vinyl Dipper Name Role Phone Bolivar WATER SAFETY TEACHER, Destiny Manzanares Primary Care Physician Encounter [facility] Date(s): 02/22/20 - 03/23/20 [facility] [address] [place] [phone] [facility] Allergies, Adverse Reactions, Alerts Substance Reaction [...] Refills, Maintenance, 11/15/19 16:44:00 EDT, [facility], 161, cm, 01/19/19 7:40:00 EDT, Height, 80, [...] Refills, Maintenance, 08/17/19 15:12:00 EST, [facility], 161, cm, 01/19/19 7:40:00 EDT, Height, 80, [...] 02/22/20 16:13:00 EDT, Route to Pharmacy Electronically, [facility]/pharmacy #[id number], 542, cm, 01/19/19 7:40:0... Start Date: 02/22/20 Stop [...]
--- OUTSIDE RECORDS SUMMARY | 2023-09-16 08:54 | XMS_ITS | Continuity of Care Document ---
Author Name Unknown Organization [facility] Adult Address [address] [place] [address]- Care Team Providers Care Perfect Bind Machine Operator Name Role Phone Bolivar MERA, Destiny Manzanares Primary Care Physician Encounter [facility] Date(s): 02/24/23 - 03/26/23 [facility] Adult [address] [place] [id number] Allergies, Adverse Reactions, Alerts No Known Allergies Immunizations Given and Recorded Vaccine Date Status Refusal Reason influenza virus vaccine, inactivated 1 08/16/22 Gi anne influenza virus vaccine, inactivated 03/12/18 Robert rded influenza virus vaccine, inactivated 03/14/17 Robert rded influenza virus vaccine, inactivated 05/07/16 Robert rded influenza virus vaccine, inactivated 04/20/15 Robert rded influenza virus vaccine, inactivated 03/28/11 Robert rded SARS-CoV-2 mRNA (dtlkifl-eyro-tuujz) vax 10/05/21 Recorded SARS-CoV-2 (COVID-19) mRNA BNT-162b2 [...] Recorded tetanus/diphtheria/pertussis, acel(Tdap) 08/20/10 Recorded 1Result Comment: [facility]# [id number] 2[facility] 3[facility]: [facility] Medications acetaminophen 325 mg oral [...] Refills, Maintenance, 02/09/23 21:45:00 EDT, [facility], 164, cm, 11/20/22 15:21:00 EDT, Height, 80, kg, 08/28/21 10:21:00 EDT, Dry Weight Start Date: 02/09/23 Status: Ordered busPIRone 15 mg oral tablet 1 tablet, By Mouth, 2 times a day, # 180 tablet, 1 Refills, Maintenance, 02/09/23 21:46:00 EDT, [facility], 164, cm, 11/20/22 15:21:00 EDT, Height, 80, kg, 08/28/21 10:21:00 EDT, Dry Weight Start Date: 02/09/23 Status: Ordered busPIRone 30 mg oral tablet 1 tablet = 30 mg, By Mouth, 2 times a day, # 60 tablet, 6 Refills, Maintenance, 02/27/23 13:05:00 EDT, Tablet, [facility]/pharmacy #[id number], Partial fill upon patient [...] 6 Refills, Maintenance, 05/29/22 14:04:00 EST, Tablet, [facility]/pharmacy #[id number], Partial fill upon patient [...] 11/25/22 14:22:00 EDT, Route to Pharmacy Electronically, [facility]/pharmacy #[id number], Partial fill upon patient [...] Personnel Name: Israel QUIROZ, Romario Vela Position: S RN Member Role: Primary Care Nurse Name: Destiny Lutz NP Position: [facility] PCO Associate Professional Member Role: PCP Address: Address: [address] [place] [address] [address] [place] [address]- Care Team Related Persons Name: KYLER DIEGO Address: home [address] [place] [address]
--- OUTSIDE RECORDS SUMMARY | 2023-09-16 08:54 | XMS_ITS | Continuity of Care Document ---
Author Name Unknown Organization [facility] Adult Address [address] [place] [address]- Care Team Providers Care Electrical Engineer Mep Name Role Phone Bolivar MERA, Destiny Manzanares Primary Care Physician Encounter [facility] Date(s): 11/24/22 - 12/24/22 [facility] Adult [address] [place] [id number] Allergies, Adverse Reactions, Alerts No Known Allergies Immunizations Given and Recorded Vaccine Date Status Refusal Reason influenza virus vaccine, inactivated 1 08/16/22 Gi anne influenza virus vaccine, inactivated 03/12/18 Robert rded influenza virus vaccine, inactivated 03/14/17 Robert rded influenza virus vaccine, inactivated 05/07/16 Robert rded influenza virus vaccine, inactivated 04/20/15 Robert rded influenza virus vaccine, inactivated 03/28/11 Robert rded SARS-CoV-2 mRNA ([id number]-ohok-arrjl) vax 10/05/21 Recorded SARS-CoV-2 (COVID-19) mRNA BNT-162b2 [...] Recorded tetanus/diphtheria/pertussis, acel(Tdap) 08/20/10 Recorded 1Result Comment: [facility]# [id number] 2[facility] Comment: [facility] [...] Refills, Maintenance, 09/07/22 15:37:00 EDT, [facility], 164, cm, 09/05/22 10:23:00 EDT, Height, 80, kg, 08/28/21 10:21:00 EDT, Dry Weight Start Date: 09/07/22 Status: Ordered busPIRone 15 mg oral tablet 1 tablet = 15 mg, By Mouth, 2 times a day, # 180 tablet, 0 Refills, Maintenance, 11/20/22 15:35:00 EDT, Tablet, [facility]/pharmacy #[id number], Partial fill upon patient [...] 6 Refills, Maintenance, 05/29/22 14:04:00 EST, Tablet, [facility]/pharmacy #[id number], Partial fill upon patient request if the prescription is for a schedule II opioid drug., 164, cm, 09/19/21 12:39:00... Start Date: 05/29/22 Stop Date: 12/25/22 Status: Ordered Golytely - oral powder for reconstitution See Instructions, Drink 240mL every 15 minutes until gone, # 4,000 mL, 0 Refills, Maintenance, 09/03/22 13:20:00 EDT, [facility]/pharmacy #[id number], may sub any gallon PEG prep, Drink 240mL every 15 minutes until gone, 164, cm, 09/03/22 13:02:00 EDT, Height, 80,... Start Date: 09/03/22 Status: Ordered MiraLax oral powder for reconstitution = 17 Gm, By Mouth, Daily, dissolve in water or juice. My increase to 2-3 times a day as needed for constipation, # 255 Gm, 2 Refills, Maintenance, 09/03/22 13:20:00 EDT, [facility]/pharmacy #[id number], Partial fill upon patient [...] 11/25/22 14:22:00 EDT, Route to Pharmacy Electronically, [facility]/pharmacy #[id number], Partial fill upon patient request if the [...] Team Personnel Name: Romario Wood RN Position: [facility] RN Member Role: Primary Care Nurse Name: Destiny Lutz NP Position: [facility] PCO Associate Professional Member Role: PCP Address: Address: [address] [place] [id number] Care Team Related Persons Name: KYLER DIEGO Address: home [address] [place] [address]
--- OUTSIDE RECORDS SUMMARY | 2023-09-16 08:54 | XMS_ITS | Continuity of Care Document ---
Author Name Unknown Organization [facility] Adult Address [address] [place] [address]- Care Team Providers Care Therapeutic Radiologist Name Role Phone Bolivar MERA, Destiny Manzanares Primary Care Physician [facility] - 04/08/21 [facility] Adult [address] [place] [address]- Allergies, Adverse Reactions, Alerts Substance Reaction Severity [...] # 180 capsule, 2 Refills, [facility], 161, cm, 12/20/20 12:01:00 EDT, Height Start [...] 09/04/20 8:54:00 EDT, Route to Pharmacy Electronically, [facility] 37[facility], 161, cm, 06/26/20 15:07:00 EST, Height, 80, [...]
--- OUTSIDE RECORDS SUMMARY | 2023-09-16 08:54 | XMS_ITS | Continuity of Care Document ---
Author Name Unknown Organization [facility] Address [address] [place] [address]- Care Team Providers Care Artillery Officer Name Role Phone Bolivar MERA, Destiny Manzanares Primary Care Physician [facility] Date[facility]s): 12/06/20 - 01/05/21 [facility] [address] [place] [address]- Attending Physician: Soy Capone Admitting Physician: AdmtrSoy Referring Physician: Admtr, ArMaggie Allergies, Adverse Reactions, Alerts Substance Reaction Severity [...] 60 capsule, 6 Refills, Maintenance, 08/08/20 10:39:00EST, [facility]/pharmacy #[id number], 161, cm, 06/26/20 15:07:00 EST, [...] 09/04/20 8:54:00 EDT, Route to Pharmacy Electronically, [facility] STORE 66004, 161, cm, 06/26/20 15:07:00 EST, Height, 80, [...]
--- OUTSIDE RECORDS SUMMARY | 2023-09-16 08:54 | XMS_ITS | Continuity of Care Document ---
Author Name Unknown Organization [facility] Adult Address [address] [place] [address]- Care Team Providers Care Knife Setter Grinder Machine Name Role Phone Bolivar MERA, Destiny Manzanares Primary Care Physician Encounter [facility] Date(s): 12/20/20 - 01/19/21 [facility] Adult [address] [place] [address]- Attending Physician: AdmSoy rolon Admitting Physician: Admtr, Ar8 Referring Physician: Admtr, Ar8 Allergies, Adverse Reactions, Alerts Substance Reaction Severity [...] 60 capsule, 6 Refills, Maintenance, 08/08/20 10:39:00EST, [facility]/pharmacy #[id number], 161, cm, 06/26/20 15:07:00 EST, Height, [...] 09/04/20 8:54:00 EDT, Route to Pharmacy Electronically, [facility] STORE 07807, 161, cm, 06/26/20 15:07:00 EST, Height, 80, [...]
--- OUTSIDE RECORDS SUMMARY | 2023-09-16 08:54 | XMS_ITS | Continuity of Care Document ---
Author Name Unknown Organization [facility] Adult Address [address] [place] [address]- Care Team Providers Care Morphology Teacher Name Role Phone Bolivar MERA, Destiny Manzanares Primary Care Physician [facility] Date[facility]s): 02/27/23 - 03/29/23 [facility] Adult [address] [place] [address] Attending Physician: Admtr, Nestor8 Admitting Physician: Admtr, [...] vaccine, inactivated 03/28/11 Robert rded SARS-CoV-2 mRNA (cxlntwk-[id number]) vax 10/05/21 Recorded SARS-CoV-2 (COVID-19) mRNA BNT-162b2 [...] Recorded tetanus/diphtheria/pertussis, acel(Tdap) 08/20/10 Recorded 1Result Comment: [facility]# [id number] 2Result Comment: [facility] 3[facility] Comment: [facility] [...] Refills, Maintenance, 02/09/23 21:45:00 EDT, [facility], 164, cm, 11/20/22 15:21:00 EDT, Height, 80, kg, 08/28/21 10:21:00 EDT, Dry Weight Start Date: 02/09/23 Status: Ordered busPIRone 15 mg oral tablet 1 tablet, By Mouth, 2 times a day, # 180 tablet, 1 Refills, Maintenance, 02/09/23 21:46:00 EDT, [facility], 164, cm, 11/20/22 15:21:00 EDT, Height, 80, kg, 08/28/21 10:21:00 EDT, Dry Weight Start Date: 02/09/23 Status: Ordered busPIRone 30 mg oral tablet 1 tablet = 30 mg, By Mouth, 2 times a day, # 60 tablet, 6 Refills, Maintenance, 02/27/23 13:05:00 EDT, Tablet, [facility]/pharmacy #[id number], Partial fill upon patient request if [...] Refills, Maintenance, 05/29/22 14:04:00 EST, Tablet, [facility]/pharmacy #[id number], Partial fill upon patient request if the prescription is for a schedule II opioid drug., 164, cm, 09/19/21 12:39:00... Start Date: 05/29/22 Stop Date: 12/25/22 Status: Ordered Golytely - oral powder for reconstitution See Instructions, Drink 240mL every 15 minutes until gone, # 4,000 mL, 0 Refills, Maintenance, 09/03/22 13:20:00 EDT, [facility]/pharmacy #[id number], may sub any gallon PEG prep, Drink 240mL every 15 minutes until gone, 164, cm, 09/03/22 13:02:00 EDT, Height, 80,... Start Date: 09/03/22 Status: Ordered MiraLax oral powder for reconstitution = 17 Gm, By Mouth, Daily, dissolve in water or juice. My increase to 2-3 times a day as needed for constipation, # 255 Gm, 2 Refills, Maintenance, 09/03/22 13:20:00 EDT, [facility]/pharmacy #[id number], Partial fill upon patient request if [...] 14:22:00 EDT, Route to Pharmacy Electronically, [facility]/pharmacy #[id number], Partial fill upon patient request if the [...] Team Personnel Name: Romario Wood RN Position: [facility] RN Member Role: Primary Care Nurse Name: Destiny Lutz NP Position: [facility] PCO Associate Professional Member Role: PCP Address: Address: [address] [place] [address] [address] [place] [address]- Care Team Related Persons Name: KYLER DIEGO Address: home [address] [place] [address]
--- OUTSIDE RECORDS SUMMARY | 2023-09-16 08:54 | XMS_ITS | Continuity of Care Document ---
Author Name Unknown Organization [facility] Adult Address [address] [place] [address]- Care Team Providers Care Dispensary Technician Name Role Phone Bolivar MERA, Destiny Manzanares Primary Care Physician En[place] [facility] Date(s): 08/28/21 - 09/27/21 [facility] Adult [address] [place] [address]- Allergies, Adverse Reactions, Alerts No Known Allergies [...] # 90 tablet, 1 Refills, [facility], 161, cm, 12/20/20 12:01:00 EDT,Height Start Date: [...] Refills, Maintenance, 09/19/21 13:47:00 EDT, ECCapsule, [facility]/pharmacy #[id number], Partial fill upon patient [...] tablet, Refills 1, Route to Pharmacy Electronically, [facility] 48338, 161, cm, 12/20/20 12:01:00 EDT, Height Start [...]
--- OUTSIDE RECORDS SUMMARY | 2023-09-16 08:54 | XMS_ITS | Continuity of Care Document ---
Author Name Unknown Organization [facility] ter Address [address] [place] [address]- Care Team Providers Care Office Messenger Helper Name Role Phone Bolivar MERA, Destiny Manzanares Primary Care Physician [place] [facility] [place]/20/21 - 09/02/[address] [address] Attending Physician: Romario Rich MD Admitting Physician: Romario Rich MD Referring Physician: Romario Rich MD Allergies, Adverse Reactions, Alerts No Known [...] Mouth, Daily, # 90 tablet, 1 Refills, [facility] ST[facility] 67001, 161, cm, 12/20/20 12:01:00 EDT,Height Start Date: [...] tablet, Refills 1, Route to Pharmacy Electronically, [facility] 95093, 161, cm, 12/20/20 12:01:00 EDT, Height Start [...]
--- OUTSIDE RECORDS SUMMARY | 2023-09-16 08:54 | XMS_ITS | Continuity of Care Document ---
Author Name Unknown Organization [facility] Adult Address [address] [place] [address]- Care Team Providers Care Document Control Specialist Name Role Phone Bolivar MERA, Destiny Manzanares Primary Care Physician [place] [facility] Date(s): 09/29/20 - 10/29/20 [facility] Adult [address] [place] [address]- Attending Physician: Soy Capone Admitting Physician: Soy [...] 60 capsule, 6 Refills, Maintenance, 08/08/20 10:39:00EST, [facility]/pharmacy #[id number], 161, cm, 06/26/20 15:07:00 EST, [...] 09/04/20 8:54:00 EDT, Route to Pharmacy Electronically, [facility] STORE 63227, 161, cm, 06/26/20 15:07:00 EST, Height, 80, [...]
--- OUTSIDE RECORDS SUMMARY | 2023-09-16 08:54 | XMS_ITS | Continuity of Care Document ---
Author Name Unknown Organization [facility] Adult Address [address] [place] [address]- Care Team Providers Care Private Banker Name Role Phone Bolivar MERA, Destiny Manzanares Primary Care Physician [place] [facility] 05/18/20 - 05/25/20 [facility] Adult [address] [place] [address]- Attending Physician: Destiny Lutz NP Allergies, Adverse [...] Dry Weight Start Date: 02/22/20 Status: Ordered duloxetine 30 mg oral enteric [...] capsule, 1 Refills, Maintenance, 05/18/20 13:42:00 EST, [facility]/pharmacy #[id number], total dose 90 mg, 161, [...] 02/22/20 16:13:00 EDT, Route to Pharmacy Electronically, [facility]/pharmacy #[id number], 161, cm, 01/19/19 7:40:0... Start [...]
--- OUTSIDE RECORDS SUMMARY | 2023-09-16 08:54 | XMS_ITS | Continuity of Care Document ---
Author Name Unknown Organization [facility] Adult Address [address] [place] [address]- Care Team Providers Care Personal Trainer Name Role Phone Bolivar GAS LOAD DISPATCHER, Destiny Manzanares Primary Care Physician Encounter [facility] Date(s): 08/10/20 - 09/09/20 [facility] Adult [address] [place] [address]- Allergies, Adverse Reactions, Alerts Substance Reaction Severity [...] 60 capsule, 6 Refills, Maintenance, 08/08/20 10:39:00EST, [facility]/pharmacy #[id number], 161, cm, 06/26/20 15:07:00 EST, Height, [...] 09/04/20 8:54:00 EDT, Route to Pharmacy Electronically, [facility] STORE 37936, 161, cm, 06/26/20 15:07:00 EST, Height, 80, [...]
--- OUTSIDE RECORDS SUMMARY | 2023-09-16 08:54 | XMS_ITS | Continuity of Care Document ---
Author Name Unknown Organization [facility] Adult Address [address] [place] [address]- Care Team Providers Care Warp Knitter Name Role Phone Bolivar MERA, Destiny Manzanares Primary Care Physician [facility] Date(s): 02/24/23 - 03/26/23 [facility] Adult [address] [place] [id number] Allergies, Adverse Reactions, Alerts No Known Allergies Immunizations Given and Recorded Vaccine Date Status Refusal Reason influenza virus vaccine, inactivated 1 08/16/22 Gi anne influenza virus vaccine, inactivated 03/12/18 Robert rded influenza virus vaccine, inactivated 03/14/17 Robert rded influenza virus vaccine, inactivated 05/07/16 Robert rded influenza virus vaccine, inactivated 04/20/15 Robert rded influenza virus vaccine, inactivated 03/28/11 Robert rded SARS-CoV-2 mRNA (upuxkzy-gynj-qfnrx) vax 10/05/21 Recorded SARS-CoV-2 (COVID-19) mRNA BNT-162b2 [...] Recorded tetanus/diphtheria/pertussis, acel(Tdap) 08/20/10 Recorded 1Result Comment: [facility]# [id number] 2Result Comment: [facility] 3[facility] Comment: [facility] Medications acetaminophen 325 mg oral tablet [...] Refills, Maintenance, 02/09/23 21:45:00 EDT, [facility], 164, cm, 11/20/22 15:21:00 EDT, Height, 80, kg, 08/28/21 10:21:00 EDT, Dry Weight Start Date: 02/09/23 Status: Ordered busPIRone 15 mg oral tablet 1 tablet, By Mouth, 2 times a day, # 180 tablet, 1 Refills, Maintenance, 02/09/23 21:46:00 EDT, [facility], 164, cm, 11/20/22 15:21:00 EDT, Height, 80, kg, 08/28/21 10:21:00 EDT, Dry Weight Start Date: 02/09/23 Status: Ordered busPIRone 30 mg oral tablet 1 tablet = 30 mg, By Mouth, 2 times a day, # 60 tablet, 6 Refills, Maintenance, 02/27/23 13:05:00 EDT, Tablet, [facility]/pharmacy #[id number], Partial fill upon patient [...] 6 Refills, Maintenance, 05/29/22 14:04:00 EST, Tablet, [facility]/pharmacy #[id number], Partial fill upon patient [...] 11/25/22 14:22:00 EDT, Route to Pharmacy Electronically, [facility]/pharmacy #[id number], Partial fill upon patient [...] Name: Destiny Lutz NP Position: [facility] PCO Associate Professional Member Role: PCP Address: Address: [address] [place] [address] [address] [place] [address]- Care Team Related Persons Name: KYLER DIEGO Address: home [address] [place] [address]
--- OUTSIDE RECORDS SUMMARY | 2023-09-16 08:54 | XMS_ITS | Continuity of Care Document ---
Author Name Unknown Organization [facility] Adult Address [address] [place] [address]- Care Team Providers Care Car Dealer Name Role Phone Bolivar MERA, Destiny Manzanares Primary Care Physician [facility] Date(s): 11/18/22 - 12/18/22 [facility] Adult [address] [place] [id number] Allergies, Adverse Reactions, Alerts No Known Allergies Immunizations Given and Recorded Vaccine Date Status Refusal Reason influenza virus vaccine, inactivated 1 08/16/22 Gi anne influenza virus vaccine, inactivated 03/12/18 Robert rded influenza virus vaccine, inactivated 03/14/17 Robert rded influenza virus vaccine, inactivated 05/07/16 Robert rded influenza virus vaccine, inactivated 04/20/15 Robert rded influenza virus vaccine, inactivated 03/28/11 Robert rded SARS-CoV-2 mRNA (exyjzcq-goml-sstzw) vax 10/05/21 Recorded SARS-CoV-2 (COVID-19) mRNA BNT-162b2 [...] Recorded tetanus/diphtheria/pertussis, acel(Tdap) 08/20/10 Recorded 1Result Comment: [facility]# [id number] 2Result Comment: [facility] 3[facility]: [facility] [...] Refills, Maintenance, 09/07/22 15:37:00 EDT, [facility], 164, cm, 09/05/22 10:23:00 EDT, Height, 80, kg, 08/28/21 10:21:00 EDT, Dry Weight Start Date: 09/07/22 Status: Ordered busPIRone 15 mg oral tablet 1 tablet = 15 mg, By Mouth, 2 times a day, # 180 tablet, 0 Refills, Maintenance, 11/20/22 15:35:00 EDT, Tablet, [facility]/pharmacy #[id number], Partial fill upon patient [...] 6 Refills, Maintenance, 05/29/22 14:04:00 EST, Tablet, [facility]/pharmacy #[id number], Partial fill upon patient request if the prescription is for a schedule II opioid drug., 164, cm, 09/19/21 12:39:00... Start Date: 05/29/22 Stop Date: 12/25/22 Status: Ordered Golytely - oral powder for reconstitution See Instructions, Drink 240mL every 15 minutes until gone, # 4,000 mL, 0 Refills, Maintenance, 09/03/22 13:20:00 EDT, [facility]/pharmacy #[id number], may sub any gallon [...] Gm, 2 Refills, Maintenance, 09/03/22 13:20:00 EDT, [facility]/pharmacy #[id number], Partial fill upon patient [...] 11/25/22 14:22:00 EDT, Route to Pharmacy Electronically, [facility]/pharmacy #[id number], Partial fill upon patient request if the [...] Associate Professional Member Role: PCP Address: Address: [address] [place] [id number] Care Team Related Persons Name: KYLER DIEGO Address: home [address] [place] [address]
--- OUTSIDE RECORDS SUMMARY | 2023-09-16 08:54 | XMS_ITS | Continuity of Care Document ---
Author Name Unknown Organization [facility] Adult Address [address] [place] [address]- Care Team Providers Care Java Security Engineer Name Role Phone Destiny Lutz NP Primary Care Physician [place] [facility] [place]19[place]21 - 09/26/21 [facility] Adult [address] [place] [address]- Encounter Diagnosis Anxiety and depression(Discharge Diagnosis) - 09/19/21 Attending Physician: Destiny Lutz NP Allergies, Adverse [...] Mouth, Daily, # 90 tablet, 1 Refills, [facility] STORE 48470, 161, cm, 12/20/20 12:01:00 EDT,Height Start Date: [...] 3 Refills, Maintenance, 09/19/21 13:47:00 EDT, [facility], [facility]/pharmacy #[id number], Partial fill upon patient request [...] tablet, Refills 1, Route to Pharmacy Electronically, [facility] 33477, 161, cm, 12/20/20 12:01:00 EDT, Height Start [...] Active Thyroid nodule(Confirmed) Active Tubular adenoma(Confirmed) Active Diagnosis Diagnosis Type Effective Dates Health Status Clinical Service Informant Anxiety and depression Discharge Diagnosis 09/19/21 Vital Signs Most recent to oldest [Reference Range]: 1 Height 164 cm (09/19/21 12:39 PM) Social History Social History Type Response Smoking Status Former smoker, quit more than 30 days ago entered on: 12/24/18 Sex Female
--- OUTSIDE RECORDS SUMMARY | 2023-09-16 08:54 | XMS_ITS | Continuity of Care Document ---
Author Name Unknown Organization [facility] Adult Address [address] [place] [address]- Care Team Providers Care Tax Map Technician Name Role Phone Bolivar MERA, Destiny Manzanares Primary Care Physician [facility] Date[facility]s): 12/09/22 - 01/08/23 [facility] Adult [address] [place] [id number] Allergies, Adverse Reactions, Alerts No Known Allergies Immunizations Given and Recorded Vaccine Date Status Refusal Reason influenza virus vaccine, inactivated 1 08/16/22 Gi anne influenza virus vaccine, inactivated 03/12/18 Robert rded influenza virus vaccine, inactivated 03/14/17 Robert rded influenza virus vaccine, inactivated 05/07/16 Robert rded influenza virus vaccine, inactivated 04/20/15 Robert rded influenza virus vaccine, inactivated 03/28/11 Robert rded SARS-CoV-2 mRNA (rgdpfzs-zhqo-vafgi) vax 10/05/21 Recorded SARS-CoV-2 (COVID-19) mRNA BNT-162b2 [...] Recorded tetanus/diphtheria/pertussis, acel(Tdap) 08/20/10 Recorded 1Result Comment: [facility]# [id number] 2Result Comment: [facility] 3Result Comment: [facility] Medications acetaminophen 325 mg [...] Refills, Maintenance, 09/07/22 15:37:00 EDT, [facility], 164, cm, 09/05/22 10:23:00 EDT, Height, 80, kg, 08/28/21 10:21:00 EDT, Dry Weight Start Date: 09/07/22 Status: Ordered busPIRone 15 mg oral tablet 1 tablet = 15 mg, By Mouth, 2 times a day, # 180 tablet, 0 Refills, Maintenance, 11/20/22 15:35:00 EDT, Tablet, [facility]/pharmacy #[id number], Partial [...] 6 Refills, Maintenance, 05/29/22 14:04:00 EST, Tablet, [facility]/pharmacy #[id number], Partial fill upon patient request if the prescription is for a schedule II opioid drug., 164, cm, 09/19/21 12:39:00... Start Date: 05/29/22 Stop Date: 12/25/22 Status: Ordered Golytely - oral powder for reconstitution See Instructions, Drink 240mL every 15 minutes until gone, # 4,000 mL, 0 Refills, Maintenance, 09/03/22 13:20:00 EDT, [facility]/pharmacy #[id number], may sub any [...] Gm, 2 Refills, Maintenance, 09/03/22 13:20:00 EDT, [facility]/pharmacy #[id number], Partial fill [...] 11/25/22 14:22:00 EDT, Route to Pharmacy Electronically, [facility]/pharmacy #[id number], Partial fill upon patient request if the [...] Team Personnel Name: Romario Wood RN Position: [facility] RN Member Role: Primary Care Nurse Name: Destiny Lutz NP Position: [facility] PCO Associate Professional Member Role: PCP Address: Address: [address] [place] [id number] Care Team Related Persons Name: KYLER DIEGO Address: home [address] [place] [address]
--- OUTSIDE RECORDS SUMMARY | 2023-09-16 08:54 | XMS_ITS | Continuity of Care Document ---
Author Name Unknown Organization [facility] Adult Address [address] [place] [address]- Care Team Providers Care Strip Mine Supervisor Name Role Phone Destiny Lutz NP Primary Care Physician [place] [facility](s): 07/02/19 - 08/05/19 [facility] Adult [address] [place] [address]- [facility] Attending Physician: Not on Staff, Attending MD Allergies, Adverse Reactions, Alerts Substance Reaction Severity [...] 04/26/19 16:42:03 EST, Route to Pharmacy Electronically, [id number], [facility]/pharmacy #[id number] Start Date: 04/26/19 Stop Date: 07/25/19 [...]
--- OUTSIDE RECORDS SUMMARY | 2023-09-16 08:54 | XMS_ITS | Continuity of Care Document ---
Author Name Unknown Organization [facility] Sonido Jevon lt Address [address] [place] [address]- Care Team Providers Care R D Intern Name Role Phone Destiny Lutz NP Primary Care Physician [facility] Date[facility]s): 01/15/23 - 02/14/23 [facility] Adult [address] [place] [address]- Allergies, Adverse Reactions, Alerts No Known Allergies Immunizations Given and Recorded Vaccine Date Status Refusal Reason influenza virus vaccine, inactivated 1 08/16/22 Gi anne influenza virus vaccine, inactivated 03/12/18 Robert rded influenza virus vaccine, inactivated 03/14/17 Robert rded influenza virus vaccine, inactivated 05/07/16 Robert rded influenza virus vaccine, inactivated 04/20/15 Robert rded influenza virus vaccine, inactivated 03/28/11 Robert rded SARS-CoV-2 mRNA (xigzxsa-yymn-fosrw) vax 10/05/21 Recorded SARS-CoV-2 (COVID-19) mRNA BNT-162b2 [...] Recorded tetanus/diphtheria/pertussis, acel(Tdap) 08/20/10 Recorded 1Result Comment: [facility]# [id number] 2Result Comment: [facility] 3[facility]: [facility] [...] Refills, Maintenance, 02/09/23 21:45:00 EDT, [facility], 164, cm, 11/20/22 15:21:00 EDT, Height, 80, kg, 08/28/21 10:21:00 EDT, Dry Weight Start Date: 02/09/23 Status: Ordered busPIRone 15 mg oral tablet 1 tablet, By Mouth, 2 times a day, # 180 tablet, 1 Refills, Maintenance, 02/09/23 21:46:00 EDT, [facility], 164, cm, 11/20/22 15:21:00 EDT, Height, 80, kg, 08/28/21 10:21:00 EDT, Dry Weight Start Date: 02/09/23 Status: Ordered Caffedrine 0 Refills, Maintenance, 08/22/22 [...] 6 Refills, Maintenance, 05/29/22 14:04:00 EST, Tablet, [facility]/pharmacy #[id number], Partial fill upon patient request if the prescription is for a schedule II opioid drug., 164, cm, 09/19/21 12:39:00... Start Date: 05/29/22 Stop Date: 12/25/22 Status: Ordered Golytely - oral powder for reconstitution See Instructions, Drink 240mL every 15 minutes until gone, # 4,000 mL, 0 Refills, Maintenance, 09/03/22 13:20:00 EDT, [facility]/pharmacy #[id number], may sub any gallon PEG prep, Drink 240mL every 15 minutes until gone, 164, cm, 09/03/22 13:02:00 EDT, Height, 80,... Start Date: 09/03/22 Status: Ordered MiraLax oral powder for reconstitution = 17 Gm, By Mouth, Daily, dissolve in water or juice. My increase to 2-3 times a day as needed for constipation, # 255 Gm, 2 Refills, Maintenance, 09/03/22 13:20:00 EDT, [facility]/pharmacy #[id number], Partial fill upon patient request [...] 11/25/22 14:22:00 EDT, Route to Pharmacy Electronically, [facility]/pharmacy #[id number], Partial fill upon patient request [...] Team Personnel Name: Romario Wood RN Position: [facility] RN Member Role: Primary Care Nurse Name: Destiny Lutz NP Position: [facility] PCO Associate Professional Member Role: PCP Address: Address: [address] [place] [address]- Care Team Related Persons Name: KYLER DIEGO Address: home [address] [place] [address]
--- OUTSIDE RECORDS SUMMARY | 2023-09-16 08:54 | XMS_ITS | Continuity of Care Document ---
Author Name Unknown Organization [facility] Address [address] [place] [address]- Care Team Providers Care Food Specialist Name Role Phone Bolivar MERA, Destiny Manzanares Primary Care Physician [facility] Date(s): 06/04/22 - 07/04/22 [facility] [address] [place] [id number] Allergies, Adverse Reactions, Alerts [...] Mouth, Daily, # 90 tablet, 1 Refills, [facility], 164, cm, 09/19/21 12:39:00 EDT,Height, 80, kg, [...] 3 Refills, Maintenance, 09/19/21 13:47:00 EDT, ECCapsule, [facility]/pharmacy #[id number], Partial fill upon patient request if the prescription is for a schedule II opioid drug., 164, cm, 09/19/21 12:39:00 EDT, H... Start Date: 09/19/21 Stop Date: 09/14/22 Status: Ordered gabapentin 600 mg oral tablet 1 tablet = 600 mg, By Mouth, Daily at bedtime, # 30 tablet, 6 Refills, Maintenance, 05/29/22 14:04:00 EST, Tablet, [facility]/pharmacy #[id number], Partial fill upon patient request if [...] 03/18/22 0:31:00 EDT, Route to Pharmacy Electronically, [facility]707, 164, cm, 09/19/21 12:39:00 EDT, Height, 80, [...] Personnel Name: Israel QUIROZ, Romario Vela Position: [facility] RN Member Role: Primary Care Nurse Name: Destiny Lutz NP Position: [facility] PCO Associate Professional Member Role: PCP Address: Address: [address] [place] [address] [address] [place] [address]- Care Team Related Persons Name: KYLER DIEGO Address: home [address] [place] [id number]
--- OUTSIDE RECORDS SUMMARY | 2023-09-16 08:54 | XMS_ITS | Continuity of Care Document ---
Author Name Unknown Organization [facility] Adult Address [address] [place] [address]- Care Team Providers Care Cellophane Wrapping Examiner Name Role Phone Boilvar FUSE ASSEMBLER, Destiny Manzanares Primary Care Physician [facility] Date(s): 08/04/20 - 09/03/20 [facility] [address] [place] [address]- Allergies, Adverse Reactions, Alerts Substance Reaction Severity [...] 60 capsule, 6 Refills, Maintenance, 08/08/20 10:39:00EST, [facility]/pharmacy #[id number], 161, cm, 06/26/20 [...] 02/22/20 16:13:00 EDT, Route to Pharmacy Electronically, [facility]/pharmacy #[id number], 161, cm, 01/19/19 7:40:0... Start [...]
--- OUTSIDE RECORDS SUMMARY | 2023-09-16 08:54 | XMS_ITS | Continuity of Care Document ---
Author Name Unknown Organization [facility] Adult Address [address] [place] [address]- Care Team Providers Care Drum Handler Name Role Phone Bolivar EDUCATION SPECIALIST, Destiny Manzanares Primary Care Physician [facility] Date(s): 05/07/20 - 06/06/20 [facility] [address] [place] [address]- Allergies, Adverse Reactions, Alerts Substance Reaction Severity [...] prescription is for a schedule II opioid domingaCandice.. Start Date: 05/18/20 Stop Date: 07/17/20 Status: Ordered duloxetine 60 mg oral enteric coated capsule 1 capsule, By Mouth, Daily, 60 mg in the morning and 30 mg in the afternoon., # 30 capsule, 1 Refills, Maintenance, 05/18/20 13:42:00 EST, [facility]/pharmacy #[id number], total dose 90 mg, 161, cm, [...] 02/22/20 16:13:00 EDT, Route to Pharmacy Electronically, [facility]/pharmacy #[id number], 161, cm, 01/19/19 7:40:0... [...]
--- OUTSIDE RECORDS SUMMARY | 2023-09-16 08:54 | XMS_ITS | Continuity of Care Document ---
Author Name Unknown Organization [facility] Adult Address [address] [place] [address]- Care Team Providers Care Pharmacist Hospital Name Role Phone Bolivar DIE CASTING MACHINE OPERATOR, Destiny Manzanares Primary Care Physician [facility] Date(s): 05/17/20 - 06/16/20 [facility] [address] [place] [address]- Allergies, Adverse Reactions, Alerts Substance Reaction Severity [...] capsule, 1 Refills, Maintenance, 05/18/20 13:42:00 EST, [facility]/pharmacy #[id number], total dose 90 mg, [...] 02/22/20 16:13:00 EDT, Route to Pharmacy Electronically, [facility]/pharmacy #[id number], 161, cm, 01/19/19 7:40:0... [...]
--- OUTSIDE RECORDS SUMMARY | 2023-09-16 08:55 | XMS_ITS | Continuity of Care Document ---
Author Name Unknown Organization [facility] Adult Address [address] [place] [address]- Care Team Providers Care Coat Room Attendant Name Role Phone Destiny Lutz NP Primary Care Physician Encounter [facility] Date(s): 06/19/23 - 06/26/23 [facility] [address] [place] [address]- Encounter Diagnosis Anxiety and depression(Discharge Diagnosis) - 06/19/23 Dizziness(Discharge Diagnosis) - 06/19/23 History of smoking(Discharge Diagnosis) - 06/19/23 Meningioma(Discharge Diagnosis) - 06/19/23 Attending Physician: Destiny Lutz NP Allergies, Adverse [...] vaccine, inactivated 03/28/11 Robert rded SARS-CoV-2 mRNA (obrbjtc-wecc-nchkc) vax 10/05/21 Recorded SARS-CoV-2 (COVID-19) mRNA BNT-162b2 [...] Recorded tetanus/diphtheria/pertussis, acel(Tdap) 08/20/10 Recorded 1Result Comment: [facility]# [id number] 2[facility] Medications [...] Refills, Maintenance, 02/09/23 21:45:00 EDT, [facility], 164, cm, 11/20/22 15:21:00 EDT, Height, 80, kg, 08/28/21 10:21:00 EDT, Dry Weight Start Date: 02/09/23 Status: Ordered busPIRone 15 mg oral tablet 1 tablet, By Mouth, 2 times a day, # 180 tablet, 1 Refills, Maintenance, 02/09/23 21:46:00 EDT, [facility], 164, cm, 11/20/22 15:21:00 EDT, Height, 80, kg, 08/28/21 10:21:00 EDT, Dry Weight Start Date: 02/09/23 Status: Ordered busPIRone 30 mg oral tablet 1 tablet = 30 mg, By Mouth, 2 times a day, # 60 tablet, 6 Refills, Maintenance, 02/27/23 13:05:00 EDT, Tablet, [facility]/pharmacy #[id number], Partial fill upon patient request [...] 4 Refills, Maintenance, 05/26/23 10:44:00 EST, Tablet, [facility]/pharmacy #[id number], Partial fill upon patient request [...] 05/22/23 12:01:00 EST, Route to Pharmacy Electronically, [id number], 164, cm, 02/27/23 12:47:00 EDT, Height, 80, [...] Service Informant Anxiety and depression Discharge Diagnosis 06/19/23 Dizziness Discharge Diagnosis 06/19/23 History of smoking Discharge Diagnosis 06/19/23 Meningioma Discharge Diagnosis 06/19/23 Vital Signs Most recent to oldest [Reference Range]: 1 2 Height 164 cm (06/19/23 3:19 PM) 164 cm (06/19/23 2:53 PM) Weight 65.9 kg (06/19/23 2:53 PM) Oxygen Saturation [94-100 %] 94 % (06/19/23 2:53 PM) Pulse Rate [55-90 bpm] 83 bpm (06/19/23 2:53 PM) Body Mass Index [18.5-24.99 kg/m2] 24.5 kg/m2 (06/19/23 2:53 PM) Blood Pressure [90-138/55-84 mm Hg] 120/ 78mm Hg (06/19/23 3:19 PM) 118/71mm Hg (06/19/23 2:53 PM) Respiratory Rate [16-30 br/min] 18 br/mi n (06/19/23 2:53 PM) Temperature [96.8-100.4 DegF] 97.6 DegF (06/19/23 2:53 PM) Mode of Delivery (Oxygen) Room air (06/19/23 2:53 PM) Blood pressure sites Arm, left (06/19/23 3:19 PM) Arm, right (06/19/23 2:53 PM) Temperature Route Oral (06/19/23 2:53 PM) Weight Obtained Via Standing scale (06/19/23 2:53 PM) Social History Social History Type Response Smoking Status Former smoker, quit more than 30 days ago entered on: 12/24/18 Sex Female Note * Coby Shah: PERFORM, SIGN, VERIFY Event Display: Patient Education/Instruction Authored Date: [id number] [facility] Clinical Summary Name ANMOL MENDEZ Age 82 Years 1940 PCP Bolivar MERA, Destiny Manzanares PCP Visit Date 06/19/2023 14:41:00 Additional Instructions: Please arrange a phone visit with Yisel Vega for follow-up Scheduled Appointments?? Future Appointments ?*[facility] ?Phone:??--?Fax:??-- ?Appt. Date:??07/10/2023?1:00 PM ?Scheduled Provider:??Yisel Ng ?[facility] ?[address],??[address] ?Phone:??--?Fax:??-- ?Appt. Date:??08/19/2023?1:10 PM ?Scheduled Provider:??Bolivar MERA, Destiny Manzanares ?[facility] ?Phone:??--?Fax:??-- ?Appt. Date:??08/26/2023?1:30 PM ?Scheduled Provider:??Carlos ESPITIA, [place] Follow-Up Instructions ?? Diagnosis Personal history of nicotine dependence; Anxiety disorder, unspecified; Dizziness and giddiness; Benign neoplasm of meninges, unspecified Medications: Please continue your medications until treatment is completed or stopped by your provider. Discuss any questions related to medications with your provider. Medications to Continue with No Changes These medications were not printed or sent to your pharmacy Acetaminophen (acetaminophen 325 mg oral tablet) 650 Milligram Oral every 6 hours. Next Dose: Aspirin (Aspirin Tablet) 325 Milligram Oral twice a day. Next Dose: Atorvastatin (atorvastatin 20 mg oral tablet) 1 tab(s) Oral Daily. Refills: 1. Next Dose: BusPIRone (busPIRone 15 mg oral tablet) 1 tab(s) Oral twice a day. Refills: 1. Next Dose: BusPIRone (busPIRone 30 mg oral tablet) 1 tab(s) Oral twice a day for 30 Days. Refills: 6. Next Dose: Caffeine Citrate (Caffedrine) Next Dose: Calcium And Vitamin D Combination (calcium-vitamin D 250 mg-200 intl units oral tablet) 2 tab(s) Oral twice a day. Next Dose: Gabapentin (gabapentin 600 mg oral tablet) 1 tab(s) Oral Daily at Bedtime for 90 Days. Refills: 4. Next Dose: Multivitamin With Minerals (PreserVision AREDS 2) 1 capsule Oral Daily. Next Dose: Hawley-3 Polyunsaturated Fatty Acids (Grecia Antartic Krill Oil) 500 Milligram Oral Daily. Next Dose: PEG Electrolyte Solution (Golytely - oral powder for reconstitution) Drink 240mL every 15 minutes until gone. Refills: 0. Next Dose: Polyethylene Glycol 3350 (MiraLax oral powder for reconstitution) 17 gram Oral Daily for 30 Days. dissolve in water or juice. My increase to 2-3 times a day as needed for constipation. Refills: 2. Next Dose: Simethicone Oral. Next Dose: Timolol Ophthalmic (timolol maleate 0.25% ophthalmic gel forming solution) 1 Drops Both eyes Daily. Next Dose: Trazodone (traZODone 50 mg oral tablet) 1 tab(s) Oral Daily at Bedtime. Refills: 2. Next Dose: Triamcinolone Topical (triamcinolone 0.1% topical lotion) 1 anrdzej Topically 3 times a day for 14 Days. Next Dose: Allergy Info:?? NKA Medications Given This Visit Future Orders ?Chest 2 Views Frontal and Lat? Order Date:06/19/23?- Complete on or after?06/19/23 Vital Signs Height 164 cm Weight 65.9 kg BMI 24.5 kg/m2 Blood Pressure 120 mm Hg/78 mm Hg Temperature 97.6 DegF Pulse Rate 83 bpm Respiratory Rate 18 br/min 02 Sat Mode of Delivery 94 %/Room air You can now view a summary of your hospital visit from the comfort of your home through a free online portal called Ringly. Ringly is a website that allows you to securely view your medical information including discharge summary, medications and follow-up visits. ??You can alsosend a secure electronic message to your doctor???s office to request appointments, renew medications or just ask a question. You can enroll at [email or web address] or register during your next office visit. Disclaimer:?? The information provided is of a general nature and is intended to be used in conjunction with the recommendations and advice of your health care practitioner. ??Every effort has been made to ensure that the information provided is accurate and complete at the time it is provided to you however, as your needs change, or, as new ??information becomes available, different or additional instructions may be required. If you have questions, please consult with your primary care provider or pharmacist, as appropriate. ??This information is not intended to serve as substitution for assessment and evaluation by a qualified health care provider. If you do not have a primary care provider, you may find a [facility] provider by calling [facility] at [phone]. [facility], in keeping with [facility] guidance, no longer requires face masks for staff, patientsor visitors in most situations. Similar to time spent indoors at other locations, there is the chance that you were exposed to respiratory viruses during your time with us (such as flu or COVID-19).? If you develop symptoms concerning for a viral respiratory infection, please seek testing (and treatment if indicated) from your medical provider or home test kit. For information about the plan of care including goals and instructions for your diagnosis, please see the patient education orders section of this document. Patient Education Materials?? The content of this educational material or handout may have been modified, supplemented, or adapted from its original content and format to support your individualized medical care. Patient Care team information Care Team Personnel Name: Romario Wood RN Position: [facility] RN Member Role: Primary Care Nurse Name: Destiny Lutz NP Position: [facility] PCO Associate Professional Member Role: PCP Address: Address: [address] [place] [address]- Care Team Related Persons Name: KYLER DIEGO Address: home [address] [place] [id number]
--- OUTSIDE RECORDS SUMMARY | 2023-09-16 08:55 | XMS_ITS | Continuity of Care Document ---
Author Name Unknown Organization [facility] Adult Address [address] [place] [address]- Care Team Providers Care Drill Runner Name Role Phone Bolivar MERA, Destiny Manzanares Primary Care Physician [facility] Date[facility]s): 02/25/23 - 03/27/23 [facility] [address] [place] [id number] Allergies, Adverse Reactions, Alerts [...] vaccine, inactivated 03/28/11 Robert rded SARS-CoV-2 mRNA (lxkjqca-ccmx-mrcmm) vax 10/05/21 Recorded SARS-CoV-2 (COVID-19) mRNA BNT-162b2 [...] tetanus/diphtheria/pertussis, acel(Tdap) 08/20/10 Recorded 1Result Comment: [facility]# [id number] 2Result Comment: [facility] 3[facility]: [facility] Medications acetaminophen 325 mg oral tablet 650 [...] Refills, Maintenance, 02/09/23 21:45:00 EDT, [facility], 164, cm, 11/20/22 15:21:00 EDT, Height, 80, kg, 08/28/21 10:21:00 EDT, Dry Weight Start Date: 02/09/23 Status: Ordered busPIRone 15 mg oral tablet 1 tablet, By Mouth, 2 times a day, # 180 tablet, 1 Refills, Maintenance, 02/09/23 21:46:00 EDT, [facility], 164, cm, 11/20/22 15:21:00 EDT, Height, 80, kg, 08/28/21 10:21:00 EDT, Dry Weight Start Date: 02/09/23 Status: Ordered busPIRone 30 mg oral tablet 1 tablet = 30 mg, By Mouth, 2 times a day, # 60 tablet, 6 Refills, Maintenance, 02/27/23 13:05:00 EDT, Tablet, [facility]/pharmacy #[id number], Partial fill upon patient request [...] 6 Refills, Maintenance, 05/29/22 14:04:00 EST, Tablet, [facility]/pharmacy #[id number], Partial fill upon patient request [...] 11/25/22 14:22:00 EDT, Route to Pharmacy Electronically, [facility]/pharmacy #[id number], Partial fill upon patient request [...] Personnel Name: Israel QUIROZ, Romario Vela Position: [facility] RN Member Role: Primary Care Nurse Name: Destiny Lutz NP Position: [facility] PCO Associate Professional Member Role: PCP Address: Address: [address] [place] [address] [address] [place] [address]- Care Team Related Persons Name: KYLER DIEGO Address: home [address] [place] [address]
--- OUTSIDE RECORDS SUMMARY | 2023-09-16 08:55 | XMS_ITS | Continuity of Care Document ---
Author Name Unknown Organization [facility] Adult Address [address] [place] [address]- Care Team Providers Care Lamina Searcher Name Role Phone Bolivar LOZENGE MAKER, Destiny Manzanares Primary Care Physician Encounter [facility] Date(s): 08/07/20 - 09/06/20 [facility] [address] [place] [address]- Allergies, Adverse Reactions, Alerts Substance Reaction Severity [...] 60 capsule, 6 Refills, Maintenance, 08/08/20 10:39:00EST, [facility]/pharmacy #[id number], 161, cm, 06/26/20 15:07:00 EST, [...] 09/04/20 8:54:00 EDT, Route to Pharmacy Electronically, [facility] 85405, 161, cm, 06/26/20 15:07:00 EST, Height, 80, [...]
--- OUTSIDE RECORDS SUMMARY | 2023-09-16 08:55 | XMS_ITS | Continuity of Care Document ---
Author Name Unknown Organization [facility] Adult Address [address] [place] [address]- Care Team Providers Care Debone Processing Supervisor Name Role Phone Bolivar MERA, Destiny Manzanares Primary Care Physician [facility] Date[facility]s): 02/24/23 - 03/26/23 [facility] [address] [place] [id number] Allergies, [...] vaccine, inactivated 03/28/11 Robert rded SARS-CoV-2 mRNA (mogqnaf-oavd-nxnss) vax 10/05/21 Recorded SARS-CoV-2 (COVID-19) mRNA BNT-162b2 [...] Recorded tetanus/diphtheria/pertussis, acel(Tdap) 08/20/10 Recorded 1Result Comment: [facility]# [id number] 2Result Comment: [facility] 3[facility]: [facility] Medications acetaminophen 325 mg oral tablet [...] Refills, Maintenance, 02/09/23 21:45:00 EDT, [facility], 164, cm, 11/20/22 15:21:00 EDT, Height, 80, kg, 08/28/21 10:21:00 EDT, Dry Weight Start Date: 02/09/23 Status: Ordered busPIRone 15 mg oral tablet 1 tablet, By Mouth, 2 times a day, # 180 tablet, 1 Refills, Maintenance, 02/09/23 21:46:00 EDT, [facility], 164, cm, 11/20/22 15:21:00 EDT, Height, 80, kg, 08/28/21 10:21:00 EDT, Dry Weight Start Date: 02/09/23 Status: Ordered busPIRone 30 mg oral tablet 1 tablet = 30 mg, By Mouth, 2 times a day, # 60 tablet, 6 Refills, Maintenance, 02/27/23 13:05:00 EDT, Tablet, [facility]/pharmacy #[id number], Partial fill upon patient [...] 6 Refills, Maintenance, 05/29/22 14:04:00 EST, Tablet, [facility]/pharmacy #[id number], Partial fill upon patient [...] 11/25/22 14:22:00 EDT, Route to Pharmacy Electronically, [facility]/pharmacy #[id number], Partial fill upon patient [...] Care Nurse Name: Destiny Lutz NP Position: [facility] PCO Associate Professional Member Role: PCP Address: Address: [address] [place] [address] [address] [place] [address]- Care Team Related Persons Name: KYLER DIEGO Address: home [address] [place] [address]
--- OUTSIDE RECORDS SUMMARY | 2023-09-16 08:55 | XMS_ITS | Continuity of Care Document ---
Author Name Unknown Organization [facility] Adult Address [address] [place] [address]- Care Team Providers Care Marketing Underwriter Name Role Phone Bolivar MERA, Destiyn Manzanares Primary Care Physician [facility] Date(s): 11/12/22 - 12/12/22 [facility] Adult [address] [place] [id number] Allergies, Adverse Reactions, Alerts No Known Allergies Immunizations Given and Recorded Vaccine Date Status Refusal Reason influenza virus vaccine, inactivated 1 08/16/22 Gi anne influenza virus vaccine, inactivated 03/12/18 Robert rded influenza virus vaccine, inactivated 03/14/17 Robert rded influenza virus vaccine, inactivated 05/07/16 Robert rded influenza virus vaccine, inactivated 04/20/15 Robert rded influenza virus vaccine, inactivated 03/28/11 Robert rded SARS-CoV-2 mRNA (mvcseji-inis-oskls) vax 10/05/21 Recorded SARS-CoV-2 (COVID-19) mRNA BNT-162b2 [...] Recorded tetanus/diphtheria/pertussis, acel(Tdap) 08/20/10 Recorded 1Result Comment: [facility]# [id number] 2Result Comment: [facility] 3Result Comment: [facility] Medications acetaminophen 325 mg oral tablet [...] Refills, Maintenance, 09/07/22 15:37:00 EDT, [facility], 164, cm, 09/05/22 10:23:00 EDT, Height, 80, kg, 08/28/21 10:21:00 EDT, Dry Weight Start Date: 09/07/22 Status: Ordered busPIRone 15 mg oral tablet 1 tablet = 15 mg, By Mouth, 2 times a day, # 180 tablet, 0 Refills, Maintenance, 11/20/22 15:35:00 EDT, Tablet, [facility]/pharmacy #[id number], Partial fill upon patient request [...] 6 Refills, Maintenance, 05/29/22 14:04:00 EST, Tablet, [facility]/pharmacy #[id number], Partial fill upon patient request if the prescription is for a schedule II opioid drug., 164, cm, 09/19/21 12:39:00... Start Date: 05/29/22 Stop Date: 12/25/22 Status: Ordered Golytely - oral powder for reconstitution See Instructions, Drink 240mL every 15 minutes until gone, # 4,000 mL, 0 Refills, Maintenance, 09/03/22 13:20:00 EDT, [facility]/pharmacy #[id number], may sub any gallon PEG prep, Drink 240mL every 15 minutes until gone, 164, cm, 09/03/22 13:02:00 EDT, Height, 80,... Start Date: 09/03/22 Status: Ordered MiraLax oral powder for reconstitution = 17 Gm, By Mouth, Daily, dissolve in water or juice. My increase to 2-3 times a day as needed for constipation, # 255 Gm, 2 Refills, Maintenance, 09/03/22 13:20:00 EDT, [facility]/pharmacy #[id number], Partial fill upon patient request [...] 11/25/22 14:22:00 EDT, Route to Pharmacy Electronically, [facility]/pharmacy #[id number], Partial fill upon patient request if the [...] Team Personnel Name: Romario Wood RN Position: [facility] RN Member Role: Primary Care Nurse Name: Destiny Lutz NP Position: [facility] PCO Associate Professional Member Role: PCP Address: Address: [address] [place] [id number] Care Team Related Persons Name: KYLER DIEGO Address: home [address] [place] [address]
--- OUTSIDE RECORDS SUMMARY | 2023-09-16 08:55 | XMS_ITS | Continuity of Care Document ---
Author Name Unknown Organization [facility] Adult Address [address] [place] [address]- Care Team Providers Care Job Checker Name Role Phone Bolivar MERA, Destiny Manzanares Primary Care Physician Encounter [facility] Date(s): 04/25/22 - 05/25/22 [facility] Adult [address] [place] [address]- Allergies, Adverse Reactions, Alerts No Known Allergies [...] # 90 tablet, 1 Refills, [facility], 164, cm, 09/19/21 12:39:00 EDT,Height, 80, kg, [...] 3 Refills, Maintenance, 09/19/21 13:47:00 EDT, ECCapsule, [facility]/pharmacy #[id number], Partial fill upon patient request if the prescription is for a schedule II opioid drug., 164, cm, 09/19/21 12:39:00 EDT, H... Start Date: 09/19/21 Stop Date: 09/14/22 Status: Ordered gabapentin 600 mg oral tablet 1 tablet = 600 mg, By Mouth, Daily at bedtime, # 30 tablet, 0 Refills, Maintenance, 11/11/22 9:49:00 EST, Tablet, [facility]/pharmacy #[id number], Partial fill upon patient request [...] 03/18/22 0:31:00 EDT, Route to Pharmacy Electronically, [facility] 16625, 164, cm, 09/19/21 12:39:00 EDT, Height, 80, [...] Personnel Name: Israel RN, Romario Vela Position: [facility] RN Member Role: Primary Care Nurse Name: Bolivar MERA, Destiny Manzanares Position: [facility] PCO Associate Professional Member Role: PCP Address: Address: [address] [place] [address]- Care Team Related Persons Name: KYLER DIEGO Address: home [address] [place] [address]
--- OUTSIDE RECORDS SUMMARY | 2023-09-16 08:55 | XMS_ITS | Continuity of Care Document ---
Author Name Unknown Organization [facility] oenterology Address [address] [place] [address]- Care Team Providers Care Basket Hand Braider Name Role Phone Bolivar MERA, Destiny Manzanares Primary Care Physician Encounter [facility] [place] Date(s): 08/08/22 - 09/25/22 [facility] Gastroenterology [address] [place] [address]- Attending Physician: Preeti Kaplan NP Admitting Physician: Eusebio MERA, Preeti Referring Physician: Destiny Lutz NP Allergies, Adverse [...] vaccine, inactivated 03/28/11 Robert rded SARS-CoV-2 mRNA (knwbhcz-ywvj-idieu) vax 10/05/21 Recorded SARS-CoV-2 (COVID-19) mRNA BNT-162b2 [...] Recorded tetanus/diphtheria/pertussis, acel(Tdap) 08/20/10 Recorded 1Result Comment: [facility]# [id number] 2Result Comment: [facility] 3Result Comment: [facility] [...] Refills, Maintenance, 09/07/22 15:37:00 EDT, [facility], 164, cm, 09/05/22 10:23:00 EDT, Height, 80, kg, 08/28/21 10:21:00 EDT, Dry Weight Start Date: 09/07/22 Status: Ordered busPIRone 7.5 mg oral tablet 1 tablet = 7.5 mg, By Mouth, 2 times a day, # 60 tablet, 0 Refills, Maintenance, 09/19/22 10:42:00 EDT, Tablet, [facility]/pharmacy #[id number], [...] Refills, Maintenance, 09/16/22 12:22:00 EDT, [facility], 164, cm, 09/05/22 10:23:00 EDT, Height, 80, [...] Nurse Name: Bolivar MERA, Destiny Manzanares Position: [facility] PCO Associate Professional Member Role: PCP Address: Address: [address] [place] [address]- Care Team Related Persons Name: KYLER DIEGO Address: home [address] [place] [id number]
--- OUTSIDE RECORDS SUMMARY | 2023-09-16 08:55 | XMS_ITS | Continuity of Care Document ---
Author Name Unknown Organization [facility] OBGYN Address [address] [place] [address]- Care Team Providers Care Cardiology Consultants Name Role Phone Destiny Lutz NP Primary Care Physician Encounter [facility] Date(s): 08/28/21 - 09/27/21 [facility] OBGYN [address] [place] [address]- Allergies, Adverse Reactions, Alerts No Known Allergies [...] Mouth, Daily, # 90 tablet, 1 Refills, [facility] STORE 89091, 161, cm, 12/20/20 12:01:00 EDT,Height Start Date: [...] 3 Refills, Maintenance, 09/19/21 13:47:00 EDT, ECCapsule, [facility]/pharmacy #[id number], Partial fill upon patient request [...] tablet, Refills 1, Route to Pharmacy Electronically, [facility] 15194, 161, cm, 12/20/20 12:01:00 EDT, Height Start [...]
--- OUTSIDE RECORDS SUMMARY | 2023-09-16 08:55 | XMS_ITS | Continuity of Care Document ---
Author Name Unknown Organization [facility] oenterology Address [address] [place] [address]- Care Team Providers Care Director Of Family Service Center Name Role Phone Destiny Lutz NP Primary Care Physician Encounter [facility] [place] Date(s): 08/26/22 - 09/25/22 [facility] Gastroenterology [address] [place] [address]- Attending Physician: Admtr, Soy Admitting Physician: AdmtrSoy Referring Physician: Admtr, Ar8 Allergies, Adverse Reactions, [...] vaccine, inactivated 03/28/11 Robert rded SARS-CoV-2 mRNA (ehuapog-cvbo-aawfu) vax 10/05/21 Recorded SARS-CoV-2 (COVID-19) mRNA BNT-162b2 [...] tetanus/diphtheria/pertussis, acel(Tdap) 08/20/10 Recorded 1Result Comment: [facility]# [id number] 2Result Comment: [facility] 3Result Comment: [facility] Medic[facility] [...] Refills, Maintenance, 09/07/22 15:37:00 EDT, [facility], 164, cm, 09/05/22 10:23:00 EDT, Height, 80, kg, 08/28/21 10:21:00 EDT, Dry Weight Start Date: 09/07/22 Status: Ordered busPIRone 7.5 mg oral tablet 1 tablet = 7.5 mg, By Mouth, 2 times a day, # 60 tablet, 0 Refills, Maintenance, 09/19/22 10:42:00 EDT, Tablet, [facility]/pharmacy #[id number], Partial fill upon patient request if [...] Refills, Maintenance, 09/16/22 12:22:00 EDT, [facility], 164, cm, 09/05/22 10:23:00 EDT, Height, 80, [...] Personnel Name: Israel QUIROZ, Romario Vela Position: [facility] RN Member Role: Primary Care Nurse Name: Bolivar MERA, Destiny Manzanares Position: [facility] PCO Associate Professional Member Role: PCP Address: Address: [address] [place] [address]- Care Team Related Persons Name: MORRISARUNAFlorence KYLER Address: home [address] [place] [address]
--- OUTSIDE RECORDS SUMMARY | 2023-09-16 08:55 | XMS_ITS | Continuity of Care Document ---
Author Name Unknown Organization [facility] ter Address [address] [place] [address]- Care Team Providers Care Gelatin Powder Mixer Name Role Phone Bolivar MERA, Destiny Manzanares Primary Care Physician Encounter [facility] [place] [facility] [place] [id number] Date(s): 04/30/21 - 05/01/[address] [address]- Discharge Disposition: A-D/C Walkout Attending Physician: Not on Staff, Attending MD Admitting Physician: Not on Staff, Admitting MD Referring Physician: Not on Staff, Referring MD Allergies, Adverse Reactions, Alerts Substance Reaction [...] # 90 tablet, 1 Refills, [facility], 161, cm, 12/20/20 12:01:00 EDT,Height Start Date: 04/20/21 Status: Ordered duloxetine 60 mg oral enteric coated capsule 1 capsule, By Mouth, 2 times a day, # 180 capsule, 2 Refills, [facility], 161, cm, 12/20/20 12:01:00 EDT, Height Start [...] tablet, Refills 1, Route to Pharmacy Electronically, [facility] ST[facility] 02346, 161, cm, 12/20/20 12:01:00 EDT, Height Start Date: 04/20/21 Status: Ordered Vitamin B12 1000 mcg oral [...] Restless leg syndrome(Confirmed) Active Thyroid nodule(Confirmed) Active Vital Signs Most recent to oldest [Reference Range]: 1 2 3 Oxygen Saturation [94-100 %] 95 % (05/01/21 8:06 AM) 97 % (05/01/21 1:16 AM) 97 % (04/30/21 10:01 PM) Pulse Rate [55-90 bpm] 77 bpm (05/01/21 8:06 AM) 88 bpm (05/01/21 1:16 AM) 81 bpm (04/30/21 10:01 PM) Blood Pressure [90-138/55-84 mm Hg] 148/76mm Hg *H* (05/01/21 8:06 AM) 194/83mm Hg *H* (05/01/21 1:16 AM) 172/76mm Hg *H* (04/30/21 10:01 PM) Respiratory Rate [16-30 br/min] 16 br/min (05/01/21 8:06 AM) 20 br/min (05/01/21 1:16 AM) 17 br/min (04/30/21 10:01 PM) Temperature [96.8-100.4 DegF] 97.6 DegF (05/01/21 8:06 AM) 97.6 DegF (05/01/21 1:16 AM) 97.7 DegF (04/30/21 10:01 PM) Mode of Delivery (Oxygen) Room air (05/01/21 1:16 AM) Room air (04/30/21 10:01 PM) Room air (04/30/21 10:38 AM) Blood pressure sites Arm, left (05/01/21 1:16 AM) Arm, left (04/30/21 10:38 AM) Temperature Route Oral (05/01/21 8:06 AM) Oral (05/01/21 1:16 AM) Oral (04/30/21 10:01 PM) Social History Social History Type Response Smoking Status Former smoker, quit more than 30 days ago entered on: 12/24/18 Sex Female
--- OUTSIDE RECORDS SUMMARY | 2023-09-16 08:56 | XMS_ITS | Continuity of Care Document ---
Author Name Unknown Organization [facility] Adult Address [address] [place] [address]- Care Team Providers Care Cashier Gambling Name Role Phone Bolivar MERA, Destiny Manzanares Primary Care Physician Encounter [facility] [place] Date(s): 09/19/22 - 10/19/22 [facility] Adult [address] [place] [address]- Attending Physician: AdmSoy rolon Admitting Physician: Admtr, [...] vaccine, inactivated 03/28/11 Robert rded SARS-CoV-2 mRNA (maltdxi-zmxd-mmpjs) vax 10/05/21 Recorded SARS-CoV-2 (COVID-19) mRNA BNT-162b2 [...] acel(Tdap) 08/20/10 Recorded 1Result Comment: [facility]# [id number] 2Result Comment: [facility] 3Result Comment: [facility] Medications acetaminophen 325 mg oral tablet [...] Refills, Maintenance, 09/07/22 15:37:00 EDT, [facility], 164, cm, 09/05/22 10:23:00 EDT, Height, 80, kg, 08/28/21 10:21:00 EDT, Dry Weight Start Date: 09/07/22 Status: Ordered busPIRone 7.5 mg oral tablet 1 tablet = 7.5 mg, By Mouth, 2 times a day, # 60 tablet, 0 Refills, Maintenance, 09/19/22 10:42:00 EDT, Tablet, [facility]/pharmacy #[id number], Partial fill upon patient request [...] Refills, Maintenance, 09/16/22 12:22:00 EDT, [facility], 164, cm, 09/05/22 10:23:00 EDT, Height, 80, [...] team information Care Team Personnel Name: Israel QUIRZO, Romario Vela Position: [facility] RN Member Role: Primary Care Nurse Name: Destiny Lutz NP Position: [facility] PCO Associate Professional Member Role: PCP Address: Address: [address] [place] [address] [address] [place] [address]- Care Team Related Persons Name: KYLER DIEGO Address: home [address] [place] [address]
--- OUTSIDE RECORDS SUMMARY | 2023-09-16 08:56 | XMS_ITS | Continuity of Care Document ---
Author Name Unknown Organization [facility] Address [address] [place] [address]- Care Team Providers Care Chemical Weigher Name Role Phone Destiny Lutz NP Primary Care Physician [place] [facility] [place]): [place] 06/17/20 [facility] [address] [place] [address]- Encounter Diagnosis Anxiety and depression(Discharge Diagnosis) - 05/18/20 Attending Physician: Destiny Lutz NP Allergies, Adverse [...] capsule, 1 Refills, Maintenance, 05/18/20 13:42:00 EST, [facility]/pharmacy #[id number], total dose 90 mg, 161, cm, [...] 02/22/20 16:13:00 EDT, Route to Pharmacy Electronically, [facility]/pharmacy #[id number], 161, cm, 01/19/19 7:40:0... Start Date: [...] Service Informant Anxiety and depression Discharge Diagnosis 05/18/20 Vital Signs Most recent to oldest [Reference Range]: 1 Height 161 cm (05/18/20 12:58 PM) Social History Social History Type Response Smoking Status Former smoker, quit more than 30 days ago entered on: 12/24/18 Sex Female
--- OUTSIDE RECORDS SUMMARY | 2023-09-16 08:56 | XMS_ITS | Continuity of Care Document ---
Author Name Unknown Organization [facility] Adult Address [address] [place] [address]- Care Team Providers Care Disaster Recovery Analyst Name Role Phone Bolivar SALESPERSON [employer], Destiny Manzanares Primary Care Physician [place] [facility] [place] [place] Date(s): 07/18/20 - 08/17/20 [facility] Adult [address] [place] [address]- Allergies, Adverse Reactions, Alerts Substance Reaction Severity [...] 02/22/20 16:13:00 EDT, Route to Pharmacy Electronically, [facility]/pharmacy #[id number], 161, cm, 01/19/19 7:40:0... Start [...]
--- OUTSIDE RECORDS SUMMARY | 2023-09-16 08:56 | XMS_ITS | Continuity of Care Document ---
Author Name Unknown Organization [facility] Adult Address [address] [place] [address]- Care Team Providers Care Training Program Manager Name Role Phone Bolivar PERSONAL SUPPORT WORKER, Destiny Manzanares Primary Care Physician [place] [facility] [place] 08/18/20 [facility] Adult [address] [place] [address]- Allergies, Adverse Reactions, Alerts Substance Reaction Severity [...] 02/22/20 16:13:00 EDT, Route to Pharmacy Electronically, [facility]/pharmacy #[id number], 161, cm, 01/19/19 7:40:0... Start Date: [...]
--- OUTSIDE RECORDS SUMMARY | 2023-09-16 08:56 | XMS_ITS | Continuity of Care Document ---
Author Name Unknown Organization [facility] Adult Address [address] [place] [address]- Care Team Providers Care Riverboat Master Name Role Phone Bolivar MERA, Destiny Manzanares Primary Care Physician Encounter [facility] Date(s): 11/15/22 - 12/15/22 [facility] Adult [address] [place] [address] Allergies, Adverse Reactions, Alerts No Known Allergies Immunizations Given and Recorded Vaccine Date Status Refusal Reason influenza virus vaccine, inactivated 1 08/16/22 Gi anne influenza virus vaccine, inactivated 03/12/18 Robert rded influenza virus vaccine, inactivated 03/14/17 Robert rded influenza virus vaccine, inactivated 05/07/16 Robert rded influenza virus vaccine, inactivated 04/20/15 Robert rded influenza virus vaccine, inactivated 03/28/11 Robert rded SARS-CoV-2 mRNA (kvfdmlp-uaqq-ozkjh) vax 10/05/21 Recorded SARS-CoV-2 (COVID-19) mRNA BNT-162b2 [...] Recorded tetanus/diphtheria/pertussis, acel(Tdap) 08/20/10 Recorded 1Result Comment: [facility]# [id number] 2Result Comment: [facility] 3Result Comment: [facility] Medications acetaminophen 325 mg oral tablet 650 [...] Refills, Maintenance, 09/07/22 15:37:00 EDT, [facility], 164, cm, 09/05/22 10:23:00 EDT, Height, 80, kg, 08/28/21 10:21:00 EDT, Dry Weight Start Date: 09/07/22 Status: Ordered busPIRone 15 mg oral tablet 1 tablet = 15 mg, By Mouth, 2 times a day, # 180 tablet, 0 Refills, Maintenance, 11/20/22 15:35:00 EDT, Tablet, [facility]/pharmacy #[id number], Partial fill upon patient request if [...] 6 Refills, Maintenance, 05/29/22 14:04:00 EST, Tablet, [facility]/pharmacy #[id number], Partial fill upon patient request if the prescription is for a schedule II opioid drug., 164, cm, 09/19/21 12:39:00... Start Date: 05/29/22 Stop Date: 12/25/22 Status: Ordered Golytely - oral powder for reconstitution See Instructions, Drink 240mL every 15 minutes until gone, # 4,000 mL, 0 Refills, Maintenance, 09/03/22 13:20:00 EDT, [facility]/pharmacy #[id number], may sub any gallon PEG prep, Drink 240mL every 15 minutes until gone, 164, cm, 09/03/22 13:02:00 EDT, Height, 80,... Start Date: 09/03/22 Status: Ordered MiraLax oral powder for reconstitution = 17 Gm, By Mouth, Daily, dissolve in water or juice. My increase to 2-3 times a day as needed for constipation, # 255 Gm, 2 Refills, Maintenance, 09/03/22 13:20:00 EDT, [facility]/pharmacy #[id number], Partial fill upon patient request if [...] 11/25/22 14:22:00 EDT, Route to Pharmacy Electronically, [facility]/pharmacy #[id number], Partial fill upon patient request if the [...] Team Personnel Name: Romario Wood RN Position: [facility] RN Member Role: Primary Care Nurse Name: Destiny Lutz NP Position: [facility] PCO Associate Professional Member Role: PCP Address: Address: [address] [place] [phone] Care Team Related Persons Name: KYLER DIEGO Address: home [address] [place] [address]
--- OUTSIDE RECORDS SUMMARY | 2023-09-16 08:56 | XMS_ITS | Continuity of Care Document ---
Author Name Unknown Organization [facility] Adult Address [address] [place] [address]- Care Team Providers Care Managed Care Analyst Name Role Phone Destiny Lutz NP Primary Care Physician [place] [facility] [place]s): 03/14/20 - 03/21/20 [facility] Adult [address] [place] [address] [facility] Encounter Diagnosis Osteoarthritis(Discharge Diagnosis) - 03/14/20 Anxiety and depression(Discharge Diagnosis) - 03/15/20 Attending Physician: Destiny Lutz NP Allergies, Adverse [...] Refills, Maintenance, 11/15/19 16:44:00 EDT, [facility], 161, cm, 01/19/19 7:40:00 EDT, Height, 80, [...] Refills, Maintenance, 08/17/19 15:12:00 EST, [facility], 161, cm, 01/19/19 7:40:00 EDT, Height, 80, [...] 02/22/20 16:13:00 EDT, Route to Pharmacy Electronically, [facility]/pharmacy #[id number], 161, cm, 01/19/19 7:40:0... Start Date: 02/22/20 [...] Effective Dates Health Status Clinical Service Informant Osteoarthritis Discharge Diagnosis 03/14/20 Anxiety and depression Discharge Diagnosis 03/15/20 Vital Signs Most recent to oldest [Reference Range]: 1 2 Height 161 cm (03/14/20 2:53 PM) 161 cm (03/14/20 2:28 PM) Weight 77.3 kg (03/14/20 2:28 PM) Oxygen Saturation [94-100 %] 95 % (03/14/20 2:28 PM) Pulse Rate [55-90 bpm] 107 bpm *H* (03/14/20 2:28 PM) Body Mass Index [18.5-24.99] 29.82 *H* (03/14/20 2:28 PM) Blood Pressure [90-138/55-84 mm Hg] 142/ 88mm Hg *H* (03/14/20 2:53 PM) 130/70mm Hg (03/14/20 2:28 PM) Respiratory Rate [16-30 br/min] 18 br/mi n (03/14/20 2:28 PM) Temperature [96.8-100.4 DegF] 97.9 DegF (03/14/20 2:28 PM) Mode of Delivery (Oxygen) Room air (03/14/20 2:28 PM) Blood pressure sites Leg, right (03/14/20 2:53 PM) Arm, left (03/14/20 2:28 PM) Temperature Route Oral (03/14/20 2:28 PM) Weight Obtained Via Standing scale (03/14/20 2:28 PM) Social History Social History Type Response Smoking Status Former smoker, quit more than 30 days ago entered on: 12/24/18 Sex Female
--- OUTSIDE RECORDS SUMMARY | 2023-09-16 08:56 | XMS_ITS | Continuity of Care Document ---
Author Name Unknown Organization [facility] Adult Address [address] [place] [address]- Care Team Providers Care Freight Receiver Name Role Phone Bolivar MERA, Destiny Manzanares Primary Care Physician [facility]counter [facility] Date(s): 11/13/22 - 12/13/22 [facility] Adult [address] [place] [address] Allergies, Adverse Reactions, Alerts No Known Allergies Immunizations Given and Recorded Vaccine Date Status Refusal Reason influenza virus vaccine, inactivated 1 08/16/22 Gi anne influenza virus vaccine, inactivated 03/12/18 Robert rded influenza virus vaccine, inactivated 03/14/17 Robert rded influenza virus vaccine, inactivated 05/07/16 Robert rded influenza virus vaccine, inactivated 04/20/15 Orbert rded influenza virus vaccine, inactivated 03/28/11 Robert rded SARS-CoV-2 mRNA (pypsspj-vgng-bfygg) vax 10/05/21 Recorded SARS-CoV-2 (COVID-19) mRNA BNT-162b2 [...] tetanus/diphtheria/pertussis, acel(Tdap) 08/20/10 Recorded 1Result Comment: [facility]# [id number] 2Result Comment: [facility] 3Result Comment: [facility] Medications acetaminophen 325 mg oral tablet 650 [...] Refills, Maintenance, 09/07/22 15:37:00 EDT, [facility], 164, cm, 09/05/22 10:23:00 EDT, Height, 80, kg, 08/28/21 10:21:00 EDT, Dry Weight Start Date: 09/07/22 Status: Ordered busPIRone 15 mg oral tablet 1 tablet = 15 mg, By Mouth, 2 times a day, # 180 tablet, 0 Refills, Maintenance, 11/20/22 15:35:00 EDT, Tablet, [facility]/pharmacy #[id number], Partial fill upon patient request if [...] 6 Refills, Maintenance, 05/29/22 14:04:00 EST, Tablet, [facility]/pharmacy #[id number], Partial fill upon patient request if the prescription is for a schedule II opioid drug., 164, cm, 09/19/21 12:39:00... Start Date: 05/29/22 Stop Date: 12/25/22 Status: Ordered Golytely - oral powder for reconstitution See Instructions, Drink 240mL every 15 minutes until gone, # 4,000 mL, 0 Refills, Maintenance, 09/03/22 13:20:00 EDT, [facility]/pharmacy #[id number], may sub any gallon PEG prep, Drink 240mL every 15 minutes until gone, 164, cm, 09/03/22 13:02:00 EDT, Height, 80,... Start Date: 09/03/22 Status: Ordered MiraLax oral powder for reconstitution = 17 Gm, By Mouth, Daily, dissolve in water or juice. My increase to 2-3 times a day as needed for constipation, # 255 Gm, 2 Refills, Maintenance, 09/03/22 13:20:00 EDT, [facility]/pharmacy #[id number], Partial fill upon patient request if [...] 11/25/22 14:22:00 EDT, Route to Pharmacy Electronically, [facility]/pharmacy #[id number], Partial fill upon patient request if the [...] Care team information Care Team Personnel Name: Roamrio Wood RN Position: [facility] RN Member Role: Primary Care Nurse Name: Destiny Lutz NP Position: [facility] PCO Associate Professional Member Role: PCP Address: Address: [address] [place] [id number] Care Team Related Persons Name: KYLER DIEGO Address: home [address] [place] [address]
--- OUTSIDE RECORDS SUMMARY | 2023-09-16 08:56 | XMS_ITS | Continuity of Care Document ---
Author Name Unknown Organization [facility] Adult Address [address] [place] [address]- Care Team Providers Care Seconds Inspector Name Role Phone Bolivar MERA, Destiny Manzanares Primary Care Physician [facility]counter [facility] Date(s): 03/04/21 - 04/03/21 [facility] Adult [address] [place] [address]- Allergies, Adverse Reactions, Alerts Substance Reaction Severity [...] # 180 capsule, 2 Refills, [facility], 161, cm, 12/20/20 12:01:00 EDT, Height Start [...] 09/04/20 8:54:00 EDT, Route to Pharmacy Electronically, [facility] 20674, 161, cm, 06/26/20 15:07:00 EST, Height, 80, [...]
--- OUTSIDE RECORDS SUMMARY | 2023-09-16 08:56 | XMS_ITS | Continuity of Care Document ---
Author Name Unknown Organization [facility] ter Address [address] [place] [address]- Care Team Providers Care Lithograph Operator Name Role Phone Bolivar MERA, Destiny Manzanares Primary Care Physician Encounter [facility] [place] Date(s): 09/10/22 - 02/13/[address] [address] Attending Physician: Hernan Finley MD Admitting Physician: Hernan Finley MD Allergies, Adverse Reactions, Alerts No Known Allergies Immunizations Given and Recorded Vaccine Date Status Refusal Reason influenza virus vaccine, inactivated 1 08/16/22 Gi anne influenza virus vaccine, inactivated 03/12/18 Robert rded influenza virus vaccine, inactivated 03/14/17 Robert rded influenza virus vaccine, inactivated 05/07/16 Robert rded influenza virus vaccine, inactivated 04/20/15 Robert rded influenza virus vaccine, inactivated 03/28/11 Robert rded SARS-CoV-2 mRNA (aaprket-dswb-gyoji) vax 10/05/21 Recorded SARS-CoV-2 (COVID-19) mRNA BNT-162b2 [...] Recorded tetanus/diphtheria/pertussis, acel(Tdap) 08/20/10 Recorded 1Result Comment: [facility]# [id number] 2Result Comment: [facility] 3[facility]: [facility] [...] Refills, Maintenance, 02/09/23 21:45:00 EDT, [facility], 164, cm, 11/20/22 15:21:00 EDT, Height, 80, kg, 08/28/21 10:21:00 EDT, Dry Weight Start Date: 02/09/23 Status: Ordered busPIRone 15 mg oral tablet 1 tablet, By Mouth, 2 times a day, # 180 tablet, 1 Refills, Maintenance, 02/09/23 21:46:00 EDT, [facility], 164, cm, 11/20/22 15:21:00 EDT, Height, 80, [...] 6 Refills, Maintenance, 05/29/22 14:04:00 EST, Tablet, [facility]/pharmacy #[id number], Partial fill upon patient request if the prescription is for a schedule II opioid drug., 164, cm, 09/19/21 12:39:00... Start Date: 05/29/22 Stop Date: 12/25/22 Status: Ordered Golytely - oral powder for reconstitution See Instructions, Drink 240mL every 15 minutes until gone, # 4,000 mL, 0 Refills, Maintenance, 09/03/22 13:20:00 EDT, [facility]/pharmacy #[id number], may sub any gallon PEG prep, Drink 240mL every 15 minutes until gone, 164, cm, 09/03/22 13:02:00 EDT, Height, 80,... Start Date: 09/03/22 Status: Ordered MiraLax oral powder for reconstitution = 17 Gm, By Mouth, Daily, dissolve in water or juice. My increase to 2-3 times a day as needed for constipation, # 255 Gm, 2 Refills, Maintenance, 09/03/22 13:20:00 EDT, [facility]/pharmacy #[id number], Partial fill upon patient [...] 11/25/22 14:22:00 EDT, Route to Pharmacy Electronically, [facility]/pharmacy #[id number], Partial fill upon patient request if the [...] Team Personnel Name: Romario Wood RN Position: [facility] RN Member Role: Primary Care Nurse Name: Destiny Lutz NP Position: [facility] PCO Associate Professional Member Role: PCP Address: Address: [address] [place] [address]- Care Team Related Persons Name: KYLER DIEGO Address: home [address] [place] [address]
--- OUTSIDE RECORDS SUMMARY | 2023-09-16 08:56 | XMS_ITS | Continuity of Care Document ---
Author Name Unknown Organization [facility] Adult Address [address] [place] [address]- Care Team Providers Care Resin Mixer Name Role Phone Bolivar MERA, Destiny Manzanares Primary Care Physician [facility]): 04/[facility]/23 - 05/03/23 [facility] Adult [address] [place] [id number] Allergies, Adverse Reactions, Alerts No Known Allergies Immunizations Given and Recorded Vaccine Date Status Refusal Reason influenza virus vaccine, inactivated 1 08/16/22 Gi anne influenza virus vaccine, inactivated 03/12/18 Robert rded influenza virus vaccine, inactivated 03/14/17 Robert rded influenza virus vaccine, inactivated 05/07/16 Robert rded influenza virus vaccine, inactivated 04/20/15 Robert rded influenza virus vaccine, inactivated 03/28/11 Robert rded SARS-CoV-2 mRNA (lggqijd-daff-lomae) vax 10/05/21 Recorded SARS-CoV-2 (COVID-19) mRNA BNT-162b2 [...] tetanus/diphtheria/pertussis, acel(Tdap) 08/20/10 Recorded 1Result Comment: [facility]# [id number] 2Result Comment: [facility] 3Result Comment: [facility] Medications acetaminophen 325 mg oral tablet [...] Refills, Maintenance, 02/09/23 21:45:00 EDT, [facility], 164, cm, 11/20/22 15:21:00 EDT, Height, 80, kg, 08/28/21 10:21:00 EDT, Dry Weight Start Date: 02/09/23 Status: Ordered busPIRone 15 mg oral tablet 1 tablet, By Mouth, 2 times a day, # 180 tablet, 1 Refills, Maintenance, 02/09/23 21:46:00 EDT, [facility], 164, cm, 11/20/22 15:21:00 EDT, Height, 80, kg, 08/28/21 10:21:00 EDT, Dry Weight Start Date: 02/09/23 Status: Ordered busPIRone 30 mg oral tablet 1 tablet = 30 mg, By Mouth, 2 times a day, # 60 tablet, 6 Refills, Maintenance, 02/27/23 13:05:00 EDT, Tablet, [facility]/pharmacy #[id number], Partial [...] Route to Pharmacy Electronically, [facility]/pharmacy #[id number], Partial fill upon patient request if the [...] Personnel Name: Israel RN, Romario Vela Position: [facility] RN Member Role: Primary Care Nurse Name: Destiny Lutz NP Position: [facility] PCO Associate Professional Member Role: PCP Address: Address: [address] [place] [address]- Care Team Related Persons Name: KYLER DIEGO Address: [address] [address]
--- OUTSIDE RECORDS SUMMARY | 2023-09-16 08:56 | XMS_ITS | Continuity of Care Document ---
Author Name Unknown Organization [facility] Adult Address [address] [place] [address]- Care Team Providers Care Manager Banquet Name Role Phone Bolivar DRAFTER PLUMBING, Destiny Manzanares Primary Care Physician [place] [facility] [place] 07/21/20 - 08/20/20 [facility] Adult [address] [place] [address]- Attending Physician: Soy Capone Admitting Physician: Soy [...] 60 capsule, 6 Refills, Maintenance, 08/08/20 10:39:00EST, [facility]/pharmacy #[id number], 161, cm, 06/26/20 15:07:00 EST, Height, [...] 02/22/20 16:13:00 EDT, Route to Pharmacy Electronically, [facility]/pharmacy #[id number], 161, cm, 01/19/19 7:40:0... Start Date: [...]
--- OUTSIDE RECORDS SUMMARY | 2023-09-16 08:56 | XMS_ITS | Continuity of Care Document ---
Author Name Unknown Organization [facility] Adult Address [address] [place] [address]- Care Team Providers Care Law Firm Consultant Name Role Phone Bolivar MERA, Destiny Manzanares Primary Care Physician [facility] 04[facility]/23 - 05/04/23 [facility] Adult [address] [place] [id number] Allergies, Adverse Reactions, Alerts No Known Allergies Immunizations Given and Recorded Vaccine Date Status Refusal Reason influenza virus vaccine, inactivated 1 08/16/22 Gi anne influenza virus vaccine, inactivated 03/12/18 Robert rded influenza virus vaccine, inactivated 03/14/17 Robert rded influenza virus vaccine, inactivated 05/07/16 Robert rded influenza virus vaccine, inactivated 04/20/15 Robert rded influenza virus vaccine, inactivated 03/28/11 Robert rded SARS-CoV-2 mRNA (noibaeh-igqu-ozikg) vax 10/05/21 Recorded SARS-CoV-2 (COVID-19) mRNA BNT-162b2 [...] Recorded tetanus/diphtheria/pertussis, acel(Tdap) 08/20/10 Recorded 1[facility] Comment[facility]# [id number] 2[facility] Comment: [facility] [...] Refills, Maintenance, 02/09/23 21:45:00 EDT, [facility], 164, cm, 11/20/22 15:21:00 EDT, Height, 80, kg, 08/28/21 10:21:00 EDT, Dry Weight Start Date: 02/09/23 Status: Ordered busPIRone 15 mg oral tablet 1 tablet, By Mouth, 2 times a day, # 180 tablet, 1 Refills, Maintenance, 02/09/23 21:46:00 EDT, [facility], 164, cm, 11/20/22 15:21:00 EDT, Height, 80, [...] Route to Pharmacy Electronically, [facility]/pharmacy #[id number], Partial fill upon patient request if [...] Personnel Name: Israel RN, Romario Vela Position: [facility] RN Member Role: Primary Care Nurse Name: Destiny Lutz NP Position: [facility] PCO Associate Professional Member Role: PCP Address: Address: [address] [place] [address]- Care Team Related Persons Name: KYLER DIEGO Address: [address] [address]
--- OUTSIDE RECORDS SUMMARY | 2023-09-16 08:56 | XMS_ITS | Continuity of Care Document ---
Author Name Unknown Organization [facility] Adult Address [address] [place] [address]- Care Team Providers Care Machine Shop Inspector Name Role Phone Bolivar MERA, Destiny Manzanares Primary Care Physician [facility] Date[facility]s): 05/21/23 - 06/20/23 [facility] Adult [address] [place] [address]- Allergies, Adverse Reactions, Alerts No Known Allergies Immunizations Given and Recorded Vaccine Date Status Refusal Reason influenza virus vaccine, inactivated 1 08/16/22 Gi anne influenza virus vaccine, inactivated 03/12/18 Roebrt rded influenza virus vaccine, inactivated 03/14/17 Robert rded influenza virus vaccine, inactivated 05/07/16 Robert rded influenza virus vaccine, inactivated 04/20/15 Robert rded influenza virus vaccine, inactivated 03/28/11 Robert rded SARS-CoV-2 mRNA (fesjotp-fbou-dbdrk) vax 10/05/21 Recorded SARS-CoV-2 (COVID-19) mRNA BNT-162b2 [...] Recorded tetanus/diphtheria/pertussis, acel(Tdap) 08/20/10 Recorded 1Result Comment: [facility]# [id number] 2Result Comment: [facility] 3Result Comment: [facility] Medications acetaminophen 325 mg oral tablet [...] Refills, Maintenance, 02/09/23 21:45:00 EDT, [facility], 164, cm, 11/20/22 15:21:00 EDT, Height, 80, kg, 08/28/21 10:21:00 EDT, Dry Weight Start Date: 02/09/23 Status: Ordered busPIRone 15 mg oral tablet 1 tablet, By Mouth, 2 times a day, # 180 tablet, 1 Refills, Maintenance, 02/09/23 21:46:00 EDT, [facility], 164, cm, 11/20/22 15:21:00 EDT, Height, 80, kg, 08/28/21 10:21:00 EDT, Dry Weight Start Date: 02/09/23 Status: Ordered busPIRone 30 mg oral tablet 1 tablet = 30 mg, By Mouth, 2 times a day, # 60 tablet, 6 Refills, Maintenance, 02/27/23 13:05:00 EDT, Tablet, [facility]/pharmacy #[id number], Partial fill upon [...] 4 Refills, Maintenance, 05/26/23 10:44:00 EST, Tablet, [facility]/pharmacy #[id number], Partial fill upon [...] 05/22/23 12:01:00 EST, Route to Pharmacy Electronically, [facility] 26868, 164, cm, 02/27/23 12:47:00 EDT, Height, 80, [...] Team Personnel Name: Romario Wood RN Position: [facility] RN Member Role: Primary Care Nurse Name: Destiny Lutz NP Position: [facility] PCO Associate Professional Member Role: PCP Address: [address] [place] [address]- Care Team Related Persons Name: KYLER DIEGO Address: home [address] [place] [address]
--- OUTSIDE RECORDS SUMMARY | 2023-09-16 08:56 | XMS_ITS | Continuity of Care Document ---
Author Name Unknown Organization [facility] Adult Address [address] [place] [address]- Care Team Providers Care Flexo Operator Name Role Phone Bolivar MERA, Destiny Manzanares Primary Care Physician [place] [facility] [place]s): 05/29/22 - 06/28/22 [facility] Adult [address] [place] [address]- Allergies, Adverse Reactions, Alerts No Known Allergies [...] # 90 tablet, 1 Refills, [facility], 164, cm, 09/19/21 12:39:00 EDT,Height, 80, kg, [...] 3 Refills, Maintenance, 09/19/21 13:47:00 EDT, ECCapsule, [facility]/pharmacy #[id number], Partial fill upon patient request if the prescription is for a schedule II opioid drug., 164, cm, 09/19/21 12:39:00 EDT, H... Start Date: 09/19/21 Stop Date: 09/14/22 Status: Ordered gabapentin 600 mg oral tablet 1 tablet = 600 mg, By Mouth, Daily at bedtime, # 30 tablet, 6 Refills, Maintenance, 12/14/22 14:04:00 EST, Tablet, [facility]/pharmacy #[id number], [...] 03/18/22 0:31:00 EDT, Route to Pharmacy Electronically, [facility] STORE 38131, 164, cm, 09/19/21 12:39:00 EDT, Height, 80, [...] Personnel Name: Israel QUIROZ, Romario Vela Position: [facility] RN Member Role: Primary Care Nurse Name: Destiny Lutz NP Position: [facility] PCO Associate Professional Member Role: PCP Address: Address: [address] [place] [address]- Care Team Related Persons Name: KYLER DIEGO Address: home [address] [place] [address]
--- OUTSIDE RECORDS SUMMARY | 2023-09-16 08:56 | XMS_ITS | Continuity of Care Document ---
Author Name Unknown Organization [facility] Adult Address [address] [place] [address]- Care Team Providers Care Coffee Sommelier Name Role Phone Bolivar MERA, Destiny Manzanares Primary Care Physician Encounter [facility] Date(s): 05/13/22 - 06/12/22 [facility] Adult [address] [place] [address]- Allergies, Adverse Reactions, Alerts No Known Allergies [...] # 90 tablet, 1 Refills, [facility], 164, cm, 09/19/21 12:39:00 EDT,Height, 80, kg, [...] 3 Refills, Maintenance, 09/19/21 13:47:00 EDT, ECCapsule, [facility]/pharmacy #[id number], Partial fill upon patient request if the prescription is for a schedule II opioid drug., 164, cm, 09/19/21 12:39:00 EDT, H... Start Date: 09/19/21 Stop Date: 09/14/22 Status: Ordered gabapentin 600 mg oral tablet 1 tablet = 600 mg, By Mouth, Daily at bedtime, # 30 tablet, 6 Refills, Maintenance, 05/29/22 14:04:00 EST, Tablet, [facility]/pharmacy #[id number], Partial fill upon patient request [...] 03/18/22 0:31:00 EDT, Route to Pharmacy Electronically, [facility] STORE 98106, 164, cm, 09/19/21 12:39:00 EDT, Height, 80, [...] Personnel Name: Israel QUIROZ, Romario Vela Position: [facility] RN Member Role: Primary Care Nurse Name: Bolivar MERA, Destiny Manzanares Position: [facility] PCO Associate Professional Member Role: PCP Address: Address: [address] [place] [address]- Care Team Related Persons Name: KYLER DIEGO Address: home [address] [place] [address]
--- OUTSIDE RECORDS SUMMARY | 2023-09-16 08:56 | XMS_ITS | Continuity of Care Document ---
Author Name Unknown Organization [facility] Adult Address [address] [place] [address]- Care Team Providers Care Anatomic Pathology Assistant Name Role Phone Bolivar DIAGNOSTIC ASSISTANT, Destiny Manzanares Primary Care Physician [facility] Date[facility]s): 05/07/20 - 06/06/20 [facility] Adult [address] [place] [address]- Allergies, Adverse Reactions, Alerts Substance Reaction Severity [...] capsule, 1 Refills, Maintenance, 05/18/20 13:42:00 EST, [facility]/pharmacy #[id number], total dose 90 mg, 161, [...] 02/22/20 16:13:00 EDT, Route to Pharmacy Electronically, [facility]/pharmacy #[id number], 161, cm, 01/19/19 7:40:0... Start [...]
--- OUTSIDE RECORDS SUMMARY | 2023-09-16 08:56 | XMS_ITS | Continuity of Care Document ---
Author Name Unknown Organization [facility] Adult Address [address] [place] [address]- Care Team Providers Care Rivet Catcher Name Role Phone Bolivar MERA, Destiny Manzanares Primary Care Physician [place] [facility] [place] 10/09/21 - 11/08/21 [facility] Adult [address] [place] [address]- Allergies, Adverse Reactions, Alerts No Known Allergies [...] # 90 tablet, 1 Refills, [facility], 161, cm, 12/20/20 12:01:00 EDT,Height Start Date: [...] Refills, Maintenance, 09/19/21 13:47:00 EDT, ECCapsule, [facility]/pharmacy #[id number], Partial fill upon patient request [...] 10/08/21 8:59:00 EDT, Route to Pharmacy Electronically, [facility]/pharmacy #[id number], 164, cm, 09/19/21 12:39:00 EDT, [...]
--- OUTSIDE RECORDS SUMMARY | 2023-09-16 08:56 | XMS_ITS | Continuity of Care Document ---
Author Name Unknown Organization [facility] Address [address] [place] [address]- Care Team Providers Care Furniture Manager Name Role Phone Destiny Lutz NP Primary Care Physician [facility] Date(s): 08/27/21 - 09/26/21 [facility] [address] [place] [address]- Allergies, Adverse Reactions, Alerts No Known Allergies [...] Mouth, Daily, # 90 tablet, 1 Refills, [facility] STORE 61859, 161, cm, 12/20/20 12:01:00 EDT,Height Start Date: [...] 3 Refills, Maintenance, 09/19/21 13:47:00 EDT, ECCapsule, [facility]/pharmacy #[id number], Partial fill upon patient [...] tablet, Refills 1, Route to Pharmacy Electronically, [facility] 72398, 161, cm, 12/20/20 12:01:00 EDT, Height Start [...]
--- OUTSIDE RECORDS SUMMARY | 2023-09-16 08:56 | XMS_ITS | Continuity of Care Document ---
Author Name Unknown Organization [facility] Adult Address [address] [place] [address]- Care Team Providers Care Turn Sewer Name Role Phone Destiny Lutz NP Primary Care Physician Encounter [facility] Date(s): 09/05/22 - 09/12/22 [facility] Adult [address] [place] [address]- Encounter Diagnosis Anxiety and depression(Discharge Diagnosis) - 09/05/22 Attending Physician: Destiny Lutz NP Allergies, Adverse [...] vaccine, inactivated 03/28/11 Robert rded SARS-CoV-2 mRNA (qesuoaz-zubs-dsgmn) vax 10/05/21 Recorded SARS-CoV-2 (COVID-19) mRNA BNT-162b2 [...] acel(Tdap) 08/20/10 Recorded 1Result Comment: [facility]# [id number] 2Result Comment: [facility] 3[facility]: [facility] [...] Refills, Maintenance, 09/07/22 15:37:00 EDT, [facility], 164, cm, 09/05/22 10:23:00 EDT, Height, 80, kg, 08/28/21 10:21:00 EDT, Dry Weight Start Date: 09/07/22 Status: Ordered Caffedrine 0 Refills, Maintenance, 08/22/22 [...] is for a schedule II opioid drug., 164narendra, 09/19/21 12:39:00 EDT, H... Start Date: 09/19/21 Stop Date: 09/14/22 Status: Ordered gabapentin 600 mg oral tablet 1 tablet = 600 mg, By Mouth, Daily at bedtime, # 30 tablet, 6 Refills, Maintenance, 05/29/22 14:04:00 EST, Tablet, [id number], Partial fill upon patient request if the prescription is for a schedule II opioid drug., narendra Coelho, 09/19/21 12:39:00... Start Date: 05/29/22 Stop Date: 12/25/22 Status: Ordered Golytely - oral powder for reconstitution See Instructions, Drink 240mL every 15 minutes until gone, # 4,000 mL, 0 Refills, Maintenance, 09/03/22 13:20:00 EDT, [id number], may sub any gallon PEG prep, Drink 240mL every 15 minutes until gone, 164narendra, 09/03/22 13:02:00 EDT, Height, 80,... Start Date: [...] Date: 09/03/22 Stop Date: 12/02/22 Status: Ordered mirtazapine 7.5 mg oral tablet 2 tablet = 15 mg, By Mouth, Daily at bedtime, # 60 tablet, 0 Refills, Maintenance, 09/05/22 11:51:00 EDT, Tablet, [id number], Partial fill upon patient request if the prescription is for a schedule II opioid drug., narendra Coelho, 09/05/22 10:23:00 E... Start Date: 09/05/22 Stop Date: 10/05/22 Status: Ordered Nature's Bounty Red Krill Oil [...] Service Informant Anxiety and depression Discharge Diagnosis 09/05/22 Vital Signs Most recent to oldest [Reference Range]: 1 Height 164 cm (09/05/22 10:23 AM) Weight 67 kg (09/05/22 10:23 AM) Body Mass Index [18.5-24.99 kg/m2] 24.91 kg/m2 (09/05/22 10:23 AM) Weight Obtained Via Patient/family state d (09/05/22 10:23 AM) Social History Social History Type Response Smoking Status Former smoker, quit more than 30 days ago entered on: 12/24/18 Sex Female Patient Care team information Care Team Personnel Name: Romario Wood RN Position: [facility] RN Member Role: Primary Care Nurse Name: Destiny Lutz NP Position: [facility] PCO Associate Professional Member Role: PCP Address: Address: [address] [place] [address] [address] [place] [address]- Care Team Related Persons Name: KYLER DIEGO Address: home [address] [place] [address]
--- OUTSIDE RECORDS SUMMARY | 2023-09-16 08:56 | XMS_ITS | Continuity of Care Document ---
Author Name Unknown Organization [facility] Adult Address [address] [place] [address]- Care Team Providers Care Terminal Supervisor Name Role Phone Bolivar MERA, Destiny Manzanares Primary Care Physician [facility] Date[facility]s): 06/15/23 - 07/15/23 [facility] Adult [address] [place] [address]- Allergies, Adverse Reactions, Alerts No Known Allergies Immunizations Given and Recorded Vaccine Date Status Refusal Reason influenza virus vaccine, inactivated 1 08/16/22 Gi anne influenza virus vaccine, inactivated 03/12/18 Robert rded influenza virus vaccine, inactivated 03/14/17 Robert rded influenza virus vaccine, inactivated 05/07/16 Robert rded influenza virus vaccine, inactivated 04/20/15 Robert rded influenza virus vaccine, inactivated 03/28/11 Robert rded SARS-CoV-2 mRNA (btebrvu-thcc-hcdez) vax 10/05/21 Recorded SARS-CoV-2 (COVID-19) mRNA BNT-162b2 [...] Recorded 1Result Comment: [facility]# [id number] 2Result Comment: [facility] 3Result Comment: [facility] Medications acetaminophen 325 mg oral tablet [...] Refills, Maintenance, 02/09/23 21:45:00 EDT, [facility], 164, cm, 11/20/22 15:21:00 EDT, Height, 80, kg, 08/28/21 10:21:00 EDT, Dry Weight Start Date: 02/09/23 Status: Ordered busPIRone 15 mg oral tablet 1 tablet, By Mouth, 2 times a day, # 180 tablet, 1 Refills, Maintenance, 02/09/23 21:46:00 EDT, [facility], 164, cm, 11/20/22 15:21:00 EDT, Height, 80, kg, 08/28/21 10:21:00 EDT, Dry Weight Start Date: 02/09/23 Status: Ordered busPIRone 30 mg oral tablet 1 tablet = 30 mg, By Mouth, 2 times a day, # 60 tablet, 6 Refills, Maintenance, 02/27/23 13:05:00 EDT, Tablet, [facility]/pharmacy #[id number], Partial fill upon patient request [...] 4 Refills, Maintenance, 05/26/23 10:44:00 EST, Tablet, [facility]/pharmacy #[id number], Partial fill upon patient request [...] 05/22/23 12:01:00 EST, Route to Pharmacy Electronically, [facility] 19188, 164, cm, 02/27/23 12:47:00 EDT, Height, 80, [...] Associate Professional Member Role: PCP Address: [address] [place] [address]- Care Team Related Persons Name: KYLER DIEGO Address: home [address] [place] [address]
--- OUTSIDE RECORDS SUMMARY | 2023-09-16 08:57 | XMS_ITS | Continuity of Care Document ---
Author Name Unknown Organization [facility] Adult Address [address] [place] [address]- Care Team Providers Care Weather Analyst Name Role Phone Bolivar CONTINUOUS PROCESS TANNER ROTARY DRUM, Destiny Manzanares Primary Care Physician [facility] Date(s): 05/17/20 - 06/16/20 [facility] Adult [address] [place] [address]- Allergies, Adverse Reactions, Alerts Substance Reaction Severity [...] capsule, 1 Refills, Maintenance, 05/18/20 13:42:00 EST, [facility]/pharmacy #[id number], total dose 90 mg, 161, cm, [...] 16:13:00 EDT, Route to Pharmacy Electronically, [facility]/pharmacy #[id number], 161, cm, 01/19/19 7:40:0... Start Date: [...]
--- OUTSIDE RECORDS SUMMARY | 2023-09-16 08:57 | XMS_ITS | Continuity of Care Document ---
Author Name Unknown Organization [facility] Adult Address [address] [place] [address]- Care Team Providers Care Clinical Rehab Specialist Name Role Phone Bolivar MERA, Destiny Manzanares Primary Care Physician [facility] Date(s): 12/08/22 - 01/07/23 [facility] Adult [address] [place] [id number] Allergies, Adverse Reactions, Alerts No Known Allergies Immunizations Given and Recorded Vaccine Date Status Refusal Reason influenza virus vaccine, inactivated 1 08/16/22 Gi anne influenza virus vaccine, inactivated 03/12/18 Robert rded influenza virus vaccine, inactivated 03/14/17 Robert rded influenza virus vaccine, inactivated 05/07/16 Robert rded influenza virus vaccine, inactivated 04/20/15 Robert rded influenza virus vaccine, inactivated 03/28/11 Robert rded SARS-CoV-2 mRNA (cwfuzkv-dawj-jsomw) vax 10/05/21 Recorded SARS-CoV-2 (COVID-19) mRNA BNT-162b2 [...] tetanus/diphtheria/pertussis, acel(Tdap) 08/20/10 Recorded 1Result Comment: [facility]# [id number] 2Result Comment: [facility] 3[facility]: [facility] Medications acetaminophen 325 mg oral [...] Refills, Maintenance, 09/07/22 15:37:00 EDT, [facility], 164, cm, 09/05/22 10:23:00 EDT, Height, 80, kg, 08/28/21 10:21:00 EDT, Dry Weight Start Date: 09/07/22 Status: Ordered busPIRone 15 mg oral tablet 1 tablet = 15 mg, By Mouth, 2 times a day, # 180 tablet, 0 Refills, Maintenance, 11/20/22 15:35:00 EDT, Tablet, [facility]/pharmacy #[id number], Partial fill upon patient [...] 6 Refills, Maintenance, 05/29/22 14:04:00 EST, Tablet, [facility]/pharmacy #[id number], Partial fill upon patient request if the prescription is for a schedule II opioid drug., 164, cm, 09/19/21 12:39:00... Start Date: 05/29/22 Stop Date: 12/25/22 Status: Ordered Golytely - oral powder for reconstitution See Instructions, Drink 240mL every 15 minutes until gone, # 4,000 mL, 0 Refills, Maintenance, 09/03/22 13:20:00 EDT, [facility]/pharmacy #[id number], may sub any gallon [...] Gm, 2 Refills, Maintenance, 09/03/22 13:20:00 EDT, [facility]/pharmacy #[id number], Partial fill upon patient [...] 11/25/22 14:22:00 EDT, Route to Pharmacy Electronically, [facility]/pharmacy #[id number], Partial fill upon patient request if the [...] Team Personnel Name: Romario Wood RN Position: [facility] RN Member Role: Primary Care Nurse Name: Destiny Lutz NP Position: [facility] PCO Associate Professional Member Role: PCP Address: Address: [address] [place] [id number] Care Team Related Persons Name: KYLER DIEGO Address: home [address] [place] [address]
--- OUTSIDE RECORDS SUMMARY | 2023-09-16 08:57 | XMS_ITS | Continuity of Care Document ---
Author Name Unknown Organization [facility] Address [address] [place] [address]- Care Team Providers Care Stave Log Ripsaw Operator Name Role Phone Bolivar MERA, Destiny Manzanares Primary Care Physician Encounter [facility] Date(s): 11/07/20 - 12/07/20 [facility] [address] [place] [address]- Allergies, Adverse Reactions, Alerts Substance Reaction Severity [...] 09/04/20 8:54:00 EDT, Route to Pharm[facility], [facility], 161, cm, 06/26/20 15:07:00 EST, Height, 80, [...]
--- OUTSIDE RECORDS SUMMARY | 2023-09-16 08:57 | XMS_ITS | Continuity of Care Document ---
Author Name Unknown Organization [facility] Address [address] [place] [address]- Care Team Providers Care Artificial Stone Setter Name Role Phone Bolivar MERA, Destiny Manzanares Primary Care Physician Encounter [facility] [place] [place] Date(s): 07/05/22 - 08/17/22 [facility] [address] [place] [address]- Attending Physician: Sallie Tineo Allergies, Adverse Reactions, Alerts No Known Allergies Immunizations Given and Recorded Vaccine Date Status Refusal Reason influenza virus vaccine, inactivated 1 08/16/22 Gi anne influenza virus vaccine, inactivated 03/12/18 Robert rded influenza virus vaccine, inactivated 03/14/17 Robert rded influenza virus vaccine, inactivated 05/07/16 Robert rded influenza virus vaccine, inactivated 04/20/15 Robert rded influenza virus vaccine, inactivated 03/28/11 Robert rded SARS-CoV-2 mRNA ([id number]-ahyn-[id number]) vax 10/05/21 Recorded SARS-CoV-2 (COVID-19) mRNA BNT-162b2 [...] Recorded tetanus/diphtheria/pertussis, acel(Tdap) 08/20/10 Recorded 1Result Comment: [facility]# [id number] 2[facility] Comment: [facility] 3[facility]: [facility] Medic[facility] [...] # 90 tablet, 1 [facility]ills[facility], 164, cm, 09/19/21 12:39:00 EDT,Height, 80, kg, [...] 3 Refills, Maintenance, 09/19/21 13:47:00 EDT, [facility], [id number], Partial fill upon patient request if the prescription is for a schedule II opioid drug., 164, cm, 09/19/21 12:39:00 EDT, H... Start Date: 09/19/21 Stop Date: 09/14/22 Status: Ordered gabapentin 600 mg oral tablet 1 tablet = 600 mg, By Mouth, Daily at bedtime, # 30 tablet, 6 Refills, Maintenance, 05/29/22 14:04:00 EST, Tablet, [facility]/pharmacy #[id number], Partial fill upon patient request if [...] 03/18/22 0:31:00 EDT, Route to Pharmacy Electronically, [facility] STORE [id number], 164 narendra, 09/19/21 12:39:00 EDT, Height, 80, kg, 08/28/21 [...] Team Personnel Name: Romario Wood RN Position: [facility] RN Member Role: Primary Care Nurse Name: Destiny Lutz NP Position: [facility] PCO Associate Professional Member Role: PCP Address: Address: [address] [place] [address]- Care Team Related Persons Name: KYLER DIEGO Address: home [address] [place] [address]
--- OUTSIDE RECORDS SUMMARY | 2023-09-16 08:57 | XMS_ITS | Continuity of Care Document ---
Author Name Unknown Organization [facility] Adult Address [address] [place] [address]- Care Team Providers Care Materials Associate Name Role Phone Bolivar MERA, Destiny Manzanares Primary Care Physician Encounter [facility] [place] Date(s): 05/07/20 - 06/24/20 [facility] Adult [address] [place] [address]- Attending Physician: Destiny Lutz NP Allergies, Adverse [...] capsule, 1 Refills, Maintenance, 05/18/20 13:42:00 EST, [facility]/pharmacy #[id number], total dose 90 mg, 161, [...] 02/22/20 16:13:00 EDT, Route to Pharmacy Electronically, [facility]/pharmacy #[id number], 161, cm, 01/19/19 7:40:0... Start [...]
--- OUTSIDE RECORDS SUMMARY | 2023-09-16 08:57 | XMS_ITS | Continuity of Care Document ---
Author Name Unknown Organization [facility] Address [address] [place] [address]- Care Team Providers Care Emergency Room Physician Assistant Name Role Phone Bolivar MERA, Destiny Manzanares Primary Care Physician Encounter [facility] Date(s): 02/28/23 - 03/30/23 [facility] [address] [place] [address] Allergies, Adverse Reactions, Alerts No Known Allergies Immunizations Given and Recorded Vaccine Date Status Refusal Reason influenza virus vaccine, inactivated 1 08/16/22 Gi anne influenza virus vaccine, inactivated 03/12/18 Robert rded influenza virus vaccine, inactivated 03/14/17 Robert rded influenza virus vaccine, inactivated 05/07/16 Robert rded influenza virus vaccine, inactivated 04/20/15 Robert rded influenza virus vaccine, inactivated 03/28/11 Robert rded SARS-CoV-2 mRNA ([id number]-utyg-dhsqk) vax 10/05/21 Recorded SARS-CoV-2 (COVID-19) mRNA BNT-162b2 [...] tetanus/diphtheria/pertussis, acel(Tdap) 08/20/10 Recorded 1Result Comment: [facility]# [id number] 2Result Comment: [facility] 3Result Comment: [facility] Medications acetaminophen 325 mg oral tablet [...] Refills, Maintenance, 02/09/23 21:45:00 EDT, [facility], 164, cm, 11/20/22 15:21:00 EDT, Height, 80, kg, 08/28/21 10:21:00 EDT, Dry Weight Start Date: 02/09/23 Status: Ordered busPIRone 15 mg oral tablet 1 tablet, By Mouth, 2 times a day, # 180 tablet, 1 Refills, Maintenance, 02/09/23 21:46:00 EDT, [facility], 164, cm, 11/20/22 15:21:00 EDT, Height, 80, kg, 08/28/21 10:21:00 EDT, Dry Weight Start Date: 02/09/23 Status: Ordered busPIRone 30 mg oral tablet 1 tablet = 30 mg, By Mouth, 2 times a day, # 60 tablet, 6 Refills, Maintenance, 02/27/23 13:05:00 EDT, Tablet, [facility]/pharmacy #[id number], Partial fill upon patient request [...] 6 Refills, Maintenance, 05/29/22 14:04:00 EST, Tablet, [facility]/pharmacy #[id number], Partial fill upon patient request [...] 11/25/22 14:22:00 EDT, Route to Pharmacy Electronically, [facility]/pharmacy #[id number], Partial fill upon patient request [...] Care Nurse Name: Destiny Lutz NP Position: [facility] PCO Associate Professional Member Role: PCP Address: Address: [address] [place] [address] [address] [place] [address]- Care Team Related Persons Name: KYLER DIEGO Address: home [address] [place] [address]
--- OUTSIDE RECORDS SUMMARY | 2023-09-16 08:57 | XMS_ITS | Continuity of Care Document ---
Author Name Unknown Organization [facility] Adult Address [address] [place] [address]- Care Team Providers Care Assembler Fitter Name Role Phone Bolivar MERA, Destiny Manzanares Primary Care Physician Encounter [facility] [place] Date(s): 05/02/22 - 06/01/22 [facility] [address] [place] [address]- Allergies, Adverse Reactions, Alerts No Known Allergies [...] # 90 tablet, 1 Refills, [facility], 164, cm, 09/19/21 12:39:00 EDT,Height, 80, kg, [...] Refills, Maintenance, 09/19/21 13:47:00 EDT, ECCapsule, [facility]/pharmacy #[id number], Partial fill upon patient request if the prescription is for a schedule II opioid drug., 164, cm, 09/19/21 12:39:00 EDT, H... Start Date: 09/19/21 Stop Date: 09/14/22 Status: Ordered gabapentin 600 mg oral tablet 1 tablet = 600 mg, By Mouth, Daily at bedtime, # 30 tablet, 6 Refills, Maintenance, 12/14/22 14:04:00 EST, Tablet, [facility]/pharmacy #[id number], Partial fill upon patient request [...] 03/18/22 0:31:00 EDT, Route to Pharmacy Electronically, [facility] STORE 57632, 164, cm, 09/19/21 12:39:00 EDT, Height, 80, [...] Personnel Name: Israel QUIROZ, Romario Vela Position: [facility] RN Member Role: Primary Care Nurse Name: Destiny Lutz NP Position: [facility] PCO Associate Professional Member Role: PCP Address: Address: [address] [place] [address]- Care Team Related Persons Name: KYLER DIEGO Address: home [address] [place] [address]
--- OUTSIDE RECORDS SUMMARY | 2023-09-16 08:57 | XMS_ITS | Continuity of Care Document ---
Author Name Unknown Organization [facility] Address [address] [place] [address]- Care Team Providers Care Online Marketing Manager Name Role Phone Bolivar MERA, Destiny Manzanares Primary Care Physician Encounter [facility] [place] Date(s): 01/25/22 - 02/24/22 [facility] Adult [address] [place] [address]- Allergies, Adverse Reactions, Alerts No Known Allergies [...] Robert rded influenza virus vaccine, inactivated 04/20/15 Robret rded influenza virus vaccine, inactivated 03/28/11 Robert [...] # 90 tablet, 1 Refills, [facility], 164, cm, 09/19/21 12:39:00 EDT,Height, 80, kg, [...] 3 Refills, Maintenance, 09/19/21 13:47:00 EDT, ECCapsule, [facility]/pharmacy #[id number], Partial fill upon [...] 10/08/21 8:59:00 EDT, Route to Pharmacy Electronically, [facility]/pharmacy #[id number], 164, cm, 09/19/21 12:39:00 EDT, Height, [...] days ago entered on: 12/24/18 Sex Female Care Team Personnel Name: Bolivar MERA, Destiny Manzanares Address: [address] [place] [address] [address] [place], [place] [address]
--- OUTSIDE RECORDS SUMMARY | 2023-09-16 08:57 | XMS_ITS | Continuity of Care Document ---
Author Name Unknown Organization [facility] Adult Address [address] [place] [address]- Care Team Providers Care Benefits Consulting Analyst Name Role Phone Bolivar MERA, Destiny Manzanares Primary Care Physician Encounter [facility] [place] Date(s): 10/07/21 - 11/06/21 [facility] Adult [address] [place] [address]- Allergies, Adverse Reactions, Alerts No Known Allergies [...] # 90 tablet, 1 Refills, [facility], 161, cm, 12/20/20 12:01:00 EDT,Height Start Date: [...] 3 Refills, Maintenance, 09/19/21 13:47:00 EDT, ECCapsule, [facility]/pharmacy #[id number], Partial fill upon patient request [...] 10/08/21 8:59:00 EDT, Route to Pharmacy Electronically, [facility]/pharmacy #[id number], 164, cm, 09/19/21 12:39:00 EDT, [...]
--- OUTSIDE RECORDS SUMMARY | 2023-09-16 08:57 | XMS_ITS | Continuity of Care Document ---
Author Name Unknown Organization [facility] Address [address] [place] [address]- Care Team Providers Care Insole Cementer Name Role Phone Bolivar MERA, Destiny Manzanares Primary Care Physician En[place] [facility] [place] Date(s): 08/16/22 - 08/23/22 [facility] [address] [place] [address]- Encounter Diagnosis Encounter for Medicare annual wellness exam(Discharge Diagnosis) - 08/16/22 Anxiety and depression(Discharge Diagnosis) - 08/16/22 Degenerative joint disease(Discharge Diagnosis) - 08/16/22 Glaucoma(Discharge Diagnosis) - 08/16/22 History of alcohol abuse(Discharge Diagnosis) - 08/16/22 Hypercholesterolemia(Discharge Diagnosis) - 08/16/22 Meningioma(Discharge Diagnosis) - 08/16/22 Osteoarthritis(Discharge Diagnosis) - 08/16/22 Osteopenia(Discharge Diagnosis) - 08/16/22 Pseudophakia of both eyes(Discharge Diagnosis) - 08/16/22 Restless leg syndrome(Discharge Diagnosis) - 08/16/22 Tubular adenoma(Discharge Diagnosis) - 08/16/22 Weight loss(Discharge Diagnosis) - 08/16/22 Urinary frequency(Discharge Diagnosis) - 08/16/22 Right shoulder pain(Discharge Diagnosis) - 08/16/22 Attending Physician: Destiny Lutz NP Allergies, Adverse [...] vaccine, inactivated 03/28/11 Robert rded SARS-CoV-2 mRNA ([id number]-srui-rnbcu) vax 10/05/21 Recorded SARS-CoV-2 (COVID-19) mRNA BNT-162b2 [...] Recorded tetanus/diphtheria/pertussis, acel(Tdap) 08/20/10 Recorded 1Result Comment: [facility]# [id number] 2Result Comment: [facility] 3Result Comment: [facility] Medications [...] Mouth, Daily, # 90 tablet, 1 Refills, [facility] STORE 62335, 164, cm, 09/19/21 12:39:00 EDT,Height, 80, kg, 08/28/21 10:21:00 EDT, Dry Weight Start Date: 01/29/22 Status: Ordered Caffedrine 0 Refills, Maintenance, 08/22/22 [...] opioid drug. Start Date: 08/09/21 Status: Ordered Cipro 250 mg oral tablet 1 tablet = 250 mg, By Mouth, Every 12 hours, for 7 days, # 14 tablet, 0 Refills, Acute 08/26/22 12:07:00 EDT, 08/19/22 12:07:00 EST, Tablet, [id number], Partial fill upon patient request if the prescription is for a schedule II opioid drug., 1... Start Date: 08/19/22 Stop Date: 08/26/22 Status: Ordered Colace Capsule 100 mg, 1, [...] schedule II opioid drug., narendra Coelho, 09/19/21 12:39:00 EDT, H... Start Date: 09/19/21 Stop Date: 09/14/22 Status: Ordered gabapentin 600 mg oral tablet 1 tablet = 600 mg, By Mouth, Daily at bedtime, # 30 tablet, 6 Refills, Maintenance, 05/29/22 14:04:00 EST, Tablet, [id number], Partial fill upon patient request if the prescription is for a schedule II opioid drug., Meliton, narendra, 09/19/21 12:39:00... Start Date: 05/29/22 Stop Date: [...] 03/18/22 0:31:00 EDT, Route to Pharmacy Electronically, [facility] STORE 89217, 164, cm, 09/19/21 12:39:00 EDT, Height, 80, [...] for Medicare annual wellness exam Discharge Diagnosis 08/16/22 Anxiety and depression Discharge Diagnosis 08/16/22 Degenerative joint disease Discharge Diagnosis 08/16/22 Glaucoma Discharge Diagnosis 08/16/22 History of alcohol abuse Discharge Diagnosis 08/16/22 Hypercholesterolemia Discharge Diagnosis 08/16/22 Meningioma Discharge Diagnosis 08/16/22 Osteoarthritis Discharge Diagnosis 08/16/22 Osteopenia Discharge Diagnosis 08/16/22 Pseudophakia of both eyes Discharge Diagnosis 08/16/22 Restless leg syndrome Discharge Diagnosis 08/16/22 Tubular adenoma Discharge Diagnosis 08/16/22 Weight loss Discharge Diagnosis 08/16/22 Urinary frequency Discharge Diagnosis 08/16/22 Right shoulder pain Discharge Diagnosis 08/16/22 Vital Signs Most recent to oldest [Reference Range]: 1 2 Height 164 cm (08/16/22 1:22 PM) 164 cm (08/16/22 12:58 PM) Weight 66.5 kg (08/16/22 12:58 PM) Oxygen Saturation [94-100 %] 95 % (08/16/22 12:58 PM) Pulse Rate [55-90 bpm] 93 bpm *H* (08/16/22 1:22 PM) 98 bpm *H* (08/16/22 12:58 PM) Body Mass Index [18.5-24.99 kg/m2] 24.72 kg/m2 (08/16/22 12:58 PM) Blood Pressure [90-138/55-84 mm Hg] 127/ 78mm Hg (08/16/22 1:22 PM) 153/84mm Hg *H* (08/16/22 12:58 PM) Temperature [96.8-100.4 DegF] 97.8 DegF (08/16/22 12:58 PM) Mode of Delivery (Oxygen) Room air (08/16/22 12:58 PM) Blood pressure sites Arm, right (08/16/22 1:22 PM) Arm, right (08/16/22 12:58 PM) Temperature Route Temporal (08/16/22 12:58 PM) Weight Obtained Via Standing scale (08/16/22 12:58 PM) Social History Social History Type Response Smoking Status Former smoker, quit more than 30 days ago entered on: 12/24/18 Sex Female Note * America Melgar: PERFORM, SIGN, VERIFY Event Display: Patient Education/Instruction Authored Date: [id number] [facility] *[facility] [place] [facility] Clinical Summary Name ANMOL MENDEZ Age 82 Years 1940 PCP Bolivar HUMAN RESOURCES DIRECTOR, Destiny Manzanares PCP Visit Date 08/16/2022 12:45:00 Additional Instructions: Scheduled Appointments?? Future Appointments ?*[facility] [address]??[place],??[place],??[address] ?Phone:??--?Fax:??-- ?Appt. Date:??08/26/2022?8:00 AM ?Scheduled Provider:??Preeti Kaplan NP Follow-Up Instructions ?? Diagnosis Benign neoplasm of meninges, unspecified; Unspecified osteoarthritis, unspecified site; Frequency of micturition; Presence of intraocular lens; Restless legs syndrome; Pure hypercholesterolemia, unspecified; Abnormal weight loss; Encounter for general adult medical examination without abnormal findings; Unspecified glaucoma; Alcohol abuse, in remission; Other specified disorders of bone density and structure, unspecified site; Benign neoplasm, unspecified site; Anxiety disorder, unspecified; Unspecified osteoarthritis, unspecified site Medications: Please continue your medications until treatment [...] tab(s) Oral Daily. Refills: 1. Next Dose: Calcium And Vitamin D Combination (calcium-vitamin D 250 mg-200 intl units oral tablet) 2 tab(s) Oral twice a day. Next Dose: Celecoxib (celecoxib 200 mg oral capsule) 1 capsule Oral Daily. Next Dose: Docusate (Colace Capsule) 100 Milligram Oral twice a day. Next Dose: Duloxetine (duloxetine 60 mg oral enteric coated capsule) 1 capsule Oral Daily for 90 Days. Refills: 3. Next Dose: Gabapentin (gabapentin 600 mg oral tablet) 1 tab(s) Oral Daily at Bedtime for 30 Days. Refills: 6. Next Dose: Multivitamin With Minerals (PreserVision AREDS 2) 1 capsule Oral Daily. Next Dose: Hailey-3 Polyunsaturated Fatty Acids (PurePlay's Bounty Red Krill Oil) 1,000 Milligram Oral twice a day. Next Dose: Pantoprazole (pantoprazole 40 mg oral delayed release tablet) 40 Milligram Oral Daily. Next Dose: Timolol Ophthalmic (timolol maleate 0.25% ophthalmic gel forming solution) 1 Drops Both eyes Daily. Next Dose: Trazodone (traZODone 50 mg oral tablet) 1 tab(s) Oral Daily at Bedtime. Refills: 1. Next Dose: Triamcinolone Topical (triamcinolone 0.1% topical lotion) 1 andrzej Topically 3 times a day for 14 Days. Next Dose: Allergy Info:?? NKA Medications Given This Visit Medication Dose Route influenza virus vaccine, inactivated (influenza virus, inactivated vacc (High Dose)) 0.7 mL Intramuscular Future Orders ?Comprehensive Metabolic Panel? Order Date:08/16/22?- Complete on or after?08/16/22 ?Complete Urinalysis/Reflex Culture? Order Date:08/16/22?- Complete on or after?08/16/22 Vital Signs Height 164 cm Weight 66.5 kg BMI 24.72 kg/m2 Blood Pressure 127 mm Hg/78 mm Hg Temperature 97.8 DegF Pulse Rate 93 bpm Respiratory Rate 02 Sat Mode of Delivery 95 %/Room air You can now view a summary of your hospital visit from the comfort of your home through a free online portal called [employer]. [employer] is a website that allows you to securely view your medical information including discharge summary, medications and follow-up visits. ??You can alsosend a secure electronic message to your doctor???s office to request appointments, renew medications or just ask a question. You can enroll at [email or web address] or register during your next office visit. [...] primary care provider, you may find a [facility] provider by calling [facility] [employer] Link at [phone]. For information about the plan of care [...] Personnel Name: Israel QUIROZ, Romario Vela Position: [facility] RN Member Role: Primary Care Nurse Name: Destiny Lutz NP Position: [facility] PCO Associate Professional Member Role: PCP Address: Address: [address] [place] [address] [address]rd [place] [address]- Care Team Related Persons Name: KYLER DIEGO Address: home [address] [place] [address]
--- OUTSIDE RECORDS SUMMARY | 2023-09-16 08:57 | XMS_ITS | Continuity of Care Document ---
Author Name Unknown Organization [facility] Adult Address [address] [place] [address]- Care Team Providers Care Export Specialist Name Role Phone Bolivar ELECTRICIAN YARD, Destiny Manzanares Primary Care Physician [place] [facility] [place] Date(s): 07/19/20 - 08/18/[address] [facility] Adult [address] [place] [address]- Allergies, Adverse Reactions, Alerts Substance Reaction Severity [...] 02/22/20 16:13:00 EDT, Route to Pharmacy Electronically, [facility]/pharmacy #[id number], 161, cm, 01/19/19 7:40:0... [...]
--- OUTSIDE RECORDS SUMMARY | 2023-09-16 08:57 | XMS_ITS | Continuity of Care Document ---
Author Name Unknown Organization [facility] Adult Address [address] [place] [address]- Care Team Providers Care Bridge Worker Name Role Phone Bolivar PARK GUIDE, Destiny Manzanares Primary Care Physician Encounter [facility] Date(s): 05/02/20 - 06/01/20 [facility] Adult [address] [place] [address]- Allergies, Adverse Reactions, Alerts Substance Reaction Severity [...] prescription is for a schedule II opioid domingaNas. Start Date: 05/18/20 Stop Date: 07/17/20 Status: Ordered duloxetine 60 mg oral enteric coated capsule 1 capsule, By Mouth, Daily, 60 mg in the morning and 30 mg in the afternoon., # 30 capsule, 1 Refills, Maintenance, 05/18/20 13:42:00 EST, [facility]/pharmacy #[id number], total dose 90 mg, 161, [...] 16:13:00 EDT, Route to Pharmacy Electronically, [facility]/pharmacy #[id number], 161, cm, 01/19/19 7:40:0... Start [...]
--- OUTSIDE RECORDS SUMMARY | 2023-09-16 08:57 | XMS_ITS | Continuity of Care Document ---
Author Name Unknown Organization [facility] Address [address] [place] [address]- Care Team Providers Care Change Management Name Role Phone Bolivar MERA, Destiny Manzanares Primary Care Physician Encounter [facility] [place] Date(s): 07/18/20 - 08/20/20 [facility] [address] [place] [address]- Encounter Diagnosis Anxiety and depression(Discharge Diagnosis) - 07/21/20 Fatigue(Discharge Diagnosis) - 07/21/20 Attending Physician: Destiny Lutz NP Allergies, Adverse [...] 60 capsule, 6 Refills, Maintenance, 08/08/20 10:39:00EST, [facility]/pharmacy #[id number], 161, cm, 06/26/20 15:07:00 [...] 02/22/20 16:13:00 EDT, Route to Pharmacy Electronically, [facility]/pharmacy #[id number], 161, cm, 01/19/19 7:40:0... [...] Service Informant Anxiety and depression Discharge Diagnosis 07/21/20 Fatigue Discharge Diagnosis 07/21/20 Social History Social History Type Response Smoking Status Former smoker, quit more than 30 days ago entered on: 12/24/18 Sex Female
--- OUTSIDE RECORDS SUMMARY | 2023-09-16 08:57 | XMS_ITS | Continuity of Care Document ---
Author Name Unknown Organization [facility] Adult Address [address] [place] [address]- Care Team Providers Care Stone Crusher Operator Name Role Phone Bolivar MERA, Destiny Manzanares Primary Care Physician Encounter [facility] [place] Date(s): 07/02/22 - 08/01/22 [facility] Adult [address] [place] [address]- Allergies, Adverse Reactions, Alerts No Known Allergies [...] # 90 tablet, 1 [facility]ills, [facility], 164, cm, 09/19/21 12:39:00 EDT,Height, 80, kg, [...] 3 Refills, Maintenance, 09/19/21 13:47:00 EDT, ECCapsule, [facility]/pharmacy #[id number], Partial fill upon patient request if the prescription is for a schedule II opioid drug., 164, cm, 09/19/21 12:39:00 EDT, H... Start Date: 09/19/21 Stop Date: 09/14/22 Status: Ordered gabapentin 600 mg oral tablet 1 tablet = 600 mg, By Mouth, Daily at bedtime, # 30 tablet, 6 Refills, Maintenance, 12/14/22 14:04:00 EST, Tablet, [facility]/pharmacy #[id number], Partial fill upon patient [...] 03/18/22 0:31:00 EDT, Route to Pharmacy Electronically, [facility] STORE 86200, 164, cm, 09/19/21 12:39:00 EDT, Height, 80, [...] Personnel Name: Israel QUIROZ, Romario Vela Position: [facility] RN Member Role: Primary Care Nurse Name: Destiny Lutz NP Position: [facility] PCO Associate Professional Member Role: PCP Address: Address: [address] [place] [address]- Care Team Related Persons Name: KYLER DIEGO Address: home [address] [place] [address]
--- OUTSIDE RECORDS SUMMARY | 2023-09-16 08:57 | XMS_ITS | Continuity of Care Document ---
Author Name Unknown Organization [facility] Adult Address [address] [place] [address]- Care Team Providers Care Associate Trainer Name Role Phone Bolivar ATG JAVA DEVELOPER, Destiny Manzanares Primary Care Physician Encounter [facility] Date(s): 05/17/20 - 06/16/20 [facility] Adult [address] [place] [address]- Allergies, Adverse Reactions, Alerts Substance Reaction Severity [...] Refills, Maintenance, 05/18/20 13:42:00 EST, [facility]/pharmacy #[id number], total dose 90 mg, 161, [...] EDT, Route to Pharmacy Electronically, [facility]/pharmacy #[id number], 161, cm, 01/19/19 7:40:0... Start [...]
--- OUTSIDE RECORDS SUMMARY | 2023-09-16 08:57 | XMS_ITS | Continuity of Care Document ---
Author Name Unknown Organization [facility] Adult Address [address] [place] [address]- Care Team Providers Care Supervising Bailiff Name Role Phone Bolivar MERA, Destiny Manzanares Primary Care Physician Encounter [facility] [place] Date(s): 07/21/20 - 07/28/20 [facility] Adult [address] [place] [address]- Attending Physician: Destiny Lutz NP Allergies, Adverse [...] 02/22/20 16:13:00 EDT, Route to Pharmacy Electronically, [facility]/pharmacy #[id number], 161, cm, 01/19/19 7:40:0... [...]
--- OUTSIDE RECORDS SUMMARY | 2023-09-16 08:57 | XMS_ITS | Continuity of Care Document ---
Author Name Unknown Organization [facility] Adult Address [address] [place] [address]- Care Team Providers Care Crawler Tractor Operator Name Role Phone Bolivar MERA, Destiny Manzanares Primary Care Physician [facility]): 09/[facility]/21 - 10/14/21 [facility] Adult [address] [place] [address]- Allergies, Adverse Reactions, Alerts No Known Allergies [...] # 90 tablet, 1 [facility]ills, [facility], 161, cm, 12/20/20 12:01:00 EDT,Height Start Date: [...] 3 Refills, Maintenance, 09/19/21 13:47:00 EDT, ECCapsule, [facility]/pharmacy #[id number], Partial fill upon patient [...] 10/08/21 8:59:00 EDT, Route to Pharmacy Electronically, [facility]/pharmacy #[id number], 164, cm, 09/19/21 12:39:00 [...]
--- OUTSIDE RECORDS SUMMARY | 2023-09-16 08:57 | XMS_ITS | Continuity of Care Document ---
Author Name Unknown Organization [facility] Adult Address [address] [place] [address]- Care Team Providers Care Job Specification Writer Name Role Phone Bolivar CORPORATE ASSOCIATE ATTORNEY, Destiny Manzanares Primary Care Physician Encounter [facility] Date(s): 08/08/20 - 09/07/20 [facility] Adult [address] [place] [address]- Allergies, Adverse Reactions, Alerts Substance Reaction Severity [...] 8:54:00 EDT, Route to Pharmacy Electronically, [facility], 161, cm, 06/26/20 15:07:00 EST, Height, 80, [...]
--- OUTSIDE RECORDS SUMMARY | 2023-09-16 08:57 | XMS_ITS | Continuity of Care Document ---
Author Name Unknown Organization [facility] ter Address [address] [place] [address]- Care Team Providers Care Paper Gluing Operator Name Role Phone Bolivar MERA, Destiny Manzanares Primary Care Physician Encounter [facility] Date(s): 08/08/21 - 08/09/[address] [address]- Discharge Disposition: A-Transfer VNA/Home Health Attending Physician: Romario Rich MD Admitting Physician: [...] opioid drug. Start Date: 08/09/21 Status: Ordered Acetaminophen Tablet 650 mg, Tablet, By Mouth, 08/09/21 9:00:00 EST Start Date: 08/09/21 Stop Date: 08/09/21 Status: Completed Aspirin Tablet 325 mg, By Mouth, 2 times a day, Refills 0, Maintenance, 08/09/21 6:51:00 EST, Partial fill upon patient request if the prescription is for a schedule II opioid drug. Start Date: 08/09/21 Status: Ordered atorvastatin 20 mg oral tablet 1 tablet, By Mouth, Daily, # 90 tablet, 1 Refills, [facility], 161, cm, 12/20/20 12:01:00 EDT,Height Start Date: [...] opioid drug. Start Date: 12/20/20 Status: Ordered oxyCODONE 5 mg oral tablet See Instructions, PRN, 1 to 2 tablet By Mouth Every 4 to 6 hours, # 84 tablet, Refills 0, Tot. Refills 0, Acute 08/16/21 6:53:00 EST, Pain , Moderate, 08/09/21 6:52:00 EST, Instructions Replace Required Details, Route to Pharmacy Electronically, [facility] Start Date: 08/09/21 Stop Date: 08/16/21 Status: Ordered pantoprazole 40 mg oral delayed [...] Ophth Solution Start Date: 12/24/18 Status: Ordered traMADol 50 mg oral tablet See Instructions, PRN Pain , Mild, 1 to 2 tablet By Mouth Every 6 hours, # 56 tablet, 0 Refills, Acute 08/16/21 6:52:00 EST, 08/09/21 6:52:00 EST, Tablet, [facility], Partial fill upon patient request if the prescription is for a schedu... Start Date: 08/09/21 Stop Date: 08/16/21 Status: Ordered traZODone 50 mg oral tablet 1, tablet, By Mouth, Daily at bedtime, # 90 tablet, Refills 1, Route to Pharmacy Electronically, [facility], 161, cm, 12/20/20 12:01:00 EDT, Height Start [...] Exam Date Time Procedure Performing Provider Status 08/08/21 10:40 PM Pelvis 1 or 2 Views Willi Whitfield; Sanjuana sebastian (Verified) Notes: (Pelvis 1 or 2 Views) Reason For Exam: Postop Prosthesis;Postop Prosthesis RESULT: Pelvis 1 or 2 Views Pelvis 1 or 2 Views Reason: Postop Prosthesis; Clinical Question(s): Status of Hip Prosthesis; Special Instructions: LEFT Hip - Do today at 2200 COMPARISON: None. FINDINGS: Bilateral total hip arthroplasty hardware in place with no evidence of hardware failure. Alignment is normal. There is cortical thickening across the femoral stem of the right hardware. The periosteal thickening measures up to 1 cm medially persists 0.5 cm in the contralateral left femur. No evidence of lucency along the hardware. No fracture. Expected soft tissue swelling and emphysema about the left hip and thigh. IMPRESSION: 1. Status post left hip total arthroplasty with no evidence of immediate hardware failure or complication. 2. Cortical thickening in the right proximal femur is of uncertain etiology. Please correlate clinically for evidence of infection. A Yellow message has been communicated via the [employer] system on 08/08/2021 10:56 PM, Message ID [id number]. WSN: [id number] Ordering Physician: Cornelio Leyva Dictated By: Domenica Yoder MD Dictated Date/Time: 08/08/21 10:56 p Reviewed By: Domenica Yoder MD Signed By: Domenica Yoder MD Signed Date/Time: 08/08/21 10:56 pm Transcribed By: LOVE Transcribed Date/Time: 08/08/21 10:52 pm Vital Signs Most recent to oldest [Reference Range]: 1 2 3 Height 162 cm (08/09/21 11:13 AM) 162 cm (08/09/21 8:11 AM) 162 cm (08/09/21 7:46 AM) Weight 73.3 kg (08/08/21 9:19 AM) 73.3 kg (08/08/21 7:23 AM) Oxygen Saturation [94-100 %] 97 % (08/09/21 11:13 AM) 96 % (08/09/21 7:22 AM) 99 % (08/09/21 3:52 AM) Pulse Rate [55-90 bpm] 77 bpm (08/09/21 11:13 AM) 57 bpm (08/09/21 7:46 AM) 65 bpm (08/09/21 7:40 AM) Body Mass Index [18.5-24.99] 27.93 *H* (08/08/21 9:19 AM) 27.93 *H* (08/08/21 7:23 AM) Blood Pressure [90-138/55-84 mm Hg] 144/70mm Hg *H* (08/09/21 11:13 AM) 98/40mm Hg (08/09/21 8:11 AM) 94/38mm Hg (08/09/21 7:46 AM) Respiratory Rate [16-30 br/min] 16 br/min (08/09/21 11:13 AM) 18 br/min (08/09/21 10:33 AM) 18 br/min (08/09/21 7:40 AM) Temperature [96.8-100.4 DegF] 97.7 DegF (08/09/21 11:13 AM) 98.1 DegF (08/09/21 7:22 AM) 97.9 DegF (08/09/21 3:52 AM) Liters per Minute 6 L/min (08/08/21 11:30 AM) Mode of Delivery (Oxygen) Room air (08/09/21 7:22 AM) Room air (08/09/21 3:52 AM) Room air (08/08/21 11:25 PM) Blood pressure sites Arm, right (08/09/21 11:13 AM) Arm, left (08/09/21 8:11 AM) Arm, right (08/09/21 7:46 AM) Temperature Route Oral (08/09/21 11:13 AM) Oral (08/09/21 7:22 AM) Oral (08/09/21 3:52 AM) Dry Weight 73.3 kg (08/08/21 7:23 AM) Weight Obtained Via Standing scale (08/08/21 7:23 AM) Dry Weight Obtained Via Standing scale (08/08/21 7:23 AM) Social History Social History Type Response Smoking Status Former smoker, quit more than 30 days ago entered on: 12/24/18 Sex Female
--- OUTSIDE RECORDS SUMMARY | 2023-09-16 08:58 | XMS_ITS | Continuity of Care Document ---
Author Name Unknown Organization [facility] Address [address] [place] [address]- Care Team Providers Care Back Up Worker Name Role Phone Bolivar MERA, Destiny Manzanares Primary Care Physician [facility] Date[facility]s): 09/03/22 - 10/03/22 [facility] [address] [place] [address]- Attending Physician: Soy Capone Admitting Physician: AdmtrSoy Referring Physician: Admtr, [id number] [...] vaccine, inactivated 03/28/11 Robert rded SARS-CoV-2 mRNA ([id number]-mlic-dspbk) vax 10/05/21 Recorded SARS-CoV-2 (COVID-19) mRNA BNT-162b2 [...] Recorded tetanus/diphtheria/pertussis, acel(Tdap) 08/20/10 Recorded 1Result Comment: [facility]# [id number] 2Result Comment: [facility] 3Result Comment: [facility] [...] tablet, 1 Refills, Maintenance, 09/07/22 15:37:00 EDT, [facility] 06292, 164, cm, 09/05/22 10:23:00 EDT, Height, 80, kg, 08/28/21 10:21:00 EDT, Dry Weight Start Date: 09/07/22 Status: Ordered busPIRone 7.5 mg oral tablet 1 tablet = 7.5 mg, By Mouth, 2 times a day, # 60 tablet, 0 Refills, Maintenance, 09/19/22 10:42:00 EDT, Tablet, [facility]/pharmacy #[id number], [...] Refills, Maintenance, 09/16/22 12:22:00 EDT, [facility], 164, cm, 09/05/22 10:23:00 EDT, Height, 80, [...] Team Personnel Name: Romario Wood RN Position: [facility] RN Member Role: Primary Care Nurse Name: Destiny Lutz NP Position: [facility] PCO Associate Professional Member Role: PCP Address: Address: [address] [place] [address]- Care Team Related Persons Name: KYLER DIEGO Address: home [address] [place] [address]
--- OUTSIDE RECORDS SUMMARY | 2023-09-16 08:58 | XMS_ITS | Continuity of Care Document ---
Author Name Unknown Organization [facility] Adult Address [address] [place] [address]- Care Team Providers Care Double End Tenoner Operator Name Role Phone Bolivar MERA, Destiny Manzanares Primary Care Physician [facility]): 04/02/23 - 05/02/23 [facility] Adult [address] [place] [id number] Allergies, Adverse Reactions, Alerts No Known Allergies Immunizations Given and Recorded Vaccine Date Status Refusal Reason influenza virus vaccine, inactivated 1 08/16/22 Gi anne influenza virus vaccine, inactivated 03/12/18 Robert rded influenza virus vaccine, inactivated 03/14/17 Robert rded influenza virus vaccine, inactivated 05/07/16 Robert rded influenza virus vaccine, inactivated 04/20/15 Robert rded influenza virus vaccine, inactivated 03/28/11 Robert rded SARS-CoV-2 mRNA (gqrpsun-yjlz-ospnk) vax 10/05/21 Recorded SARS-CoV-2 (COVID-19) mRNA BNT-162b2 [...] acel(Tdap) 08/20/10 Recorded 1Result Comment: [facility]# [id number] 2Result Comment[facility] 3[facility]: [facility] Medications acetaminophen 325 mg oral tablet [...] Refills, Maintenance, 02/09/23 21:45:00 EDT, [facility], 164, cm, 11/20/22 15:21:00 EDT, Height, 80, kg, 08/28/21 10:21:00 EDT, Dry Weight Start Date: 02/09/23 Status: Ordered busPIRone 15 mg oral tablet 1 tablet, By Mouth, 2 times a day, # 180 tablet, 1 Refills, Maintenance, 02/09/23 21:46:00 EDT, [facility], 164, cm, 11/20/22 15:21:00 EDT, Height, 80, kg, 08/28/21 10:21:00 EDT, Dry Weight Start Date: 02/09/23 Status: Ordered busPIRone 30 mg oral tablet 1 tablet = 30 mg, By Mouth, 2 times a day, # 60 tablet, 6 Refills, Maintenance, 02/27/23 13:05:00 EDT, Tablet, [facility]/pharmacy #[id number], Partial fill upon [...] 6 Refills, Maintenance, 05/29/22 14:04:00 EST, Tablet, [facility]/pharmacy #[id number], Partial fill upon [...] 11/25/22 14:22:00 EDT, Route to Pharmacy Electronically, [facility]/pharmacy #[id number], Partial fill upon patient request if the [...] Personnel Name: Israel RN, Romario Vela Position: [facility] RN Member Role: Primary Care Nurse Name: Destiny Lutz NP Position: [facility] PCO Associate Professional Member Role: PCP Address: Address: [address] [place] [address]- Care Team Related Persons Name: KYLER DIEGO Address: [address] [address]
--- OUTSIDE RECORDS SUMMARY | 2023-09-16 08:58 | XMS_ITS | Continuity of Care Document ---
Author Name Unknown Organization [facility] Adult Address [address] [place] [address]- Care Team Providers Care Production Tester Name Role Phone Bolivar MERA, Destiny Manzanares Primary Care Physician [facility]): 06/19/23 - 07/19/23 [facility] Adult [address] [place] [id number] Attending Physician: Admtr, [email or web address] Admitting Physician: [...] vaccine, inactivated 03/28/11 Robert rded SARS-CoV-2 mRNA (kqebyyb-muxy-wafjr) vax 10/05/21 Recorded SARS-CoV-2 (COVID-19) mRNA BNT-162b2 [...] Recorded tetanus/diphtheria/pertussis, acel(Tdap) 08/20/10 Recorded 1Result Comment: [facility]# [id number] 2Result Comment: [facility] 3[facility] [...] Refills, Maintenance, 02/09/23 21:45:00 EDT, [facility], 164, cm, 11/20/22 15:21:00 EDT, Height, 80, kg, 08/28/21 10:21:00 EDT, Dry Weight Start Date: 02/09/23 Status: Ordered busPIRone 15 mg oral tablet 1 tablet, By Mouth, 2 times a day, # 180 tablet, 1 Refills, Maintenance, 02/09/23 21:46:00 EDT, [facility], 164, cm, 11/20/22 15:21:00 EDT, Height, 80, kg, 08/28/21 10:21:00 EDT, Dry Weight Start Date: 02/09/23 Status: Ordered busPIRone 30 mg oral tablet 1 tablet = 30 mg, By Mouth, 2 times a day, # 60 tablet, 6 Refills, Maintenance, 02/27/23 13:05:00 EDT, Tablet, [facility]/pharmacy #[id number], Partial fill upon patient request if [...] 4 Refills, Maintenance, 05/26/23 10:44:00 EST, Tablet, [facility]/pharmacy #[id number], Partial fill upon patient request if the prescription is for a schedule II opioid drug., 164, cm, 02/27/23 12:47:00... Start Date: 05/26/23 Stop Date: 08/18/24 Status: Ordered Golytely - oral powder for reconstitution See Instructions, Drink 240mL every 15 minutes until gone, # 4,000 mL, 0 Refills, Maintenance, 09/03/22 13:20:00 EDT, [facility]/pharmacy #[id number], may sub any gallon PEG prep, [...] Maintenance, 09/03/22 13:20:00 EDT, [facility]/pharmacy #[id number], Partial fill upon patient request if [...] 05/22/23 12:01:00 EST, Route to Pharmacy Electronically, [facility] 69[facility], 164, cm, 02/27/23 12:47:00 EDT, Height, 80, [...] Professional Member Role: PCP Address: Address: [address] [place] [address]- [place] Care Team Related Persons Name: KYLER DIEGO Address: home [address] [place] [address]
--- OUTSIDE RECORDS SUMMARY | 2023-09-16 08:58 | XMS_ITS | Continuity of Care Document ---
Author Name Unknown Organization [facility] Adult Address [address] [place] [address]- Care Team Providers Care Collection Advisor Name Role Phone Bolivar MERA, Destiny Manzanares Primary Care Physician [facility]s): 12/26/21 - 01/25/22 [facility] Adult [address] [place] [address]- Allergies, Adverse Reactions, Alerts No Known Allergies [...] # 90 tablet, 1 [facility]ills, [facility], 161, cm, 12/20/20 12:01:00 EDT,Height Start Date: [...]
--- OUTSIDE RECORDS SUMMARY | 2023-09-16 08:58 | XMS_ITS | Continuity of Care Document ---
Author Name Unknown Organization [facility] Adult Address [address] [place] [address]- Care Team Providers Care Senior Java Programmer Name Role Phone Bolivar MERA, Destiny Manzanares Primary Care Physician [facility] Date[facility]s): 05/26/23 - 06/25/23 [facility] [address] [place] [address]- Allergies, Adverse Reactions, Alerts No Known Allergies Immunizations Given and Recorded Vaccine Date Status Refusal Reason influenza virus vaccine, inactivated 1 08/16/22 Gi anne influenza virus vaccine, inactivated 03/12/18 Robert rded influenza virus vaccine, inactivated 03/14/17 Robert rded influenza virus vaccine, inactivated 05/07/16 Robert rded influenza virus vaccine, inactivated 04/20/15 Robert rded influenza virus vaccine, inactivated 03/28/11 Robert rded SARS-CoV-2 mRNA (euiwisu-uede-hygjy) vax 10/05/21 Recorded SARS-CoV-2 (COVID-19) mRNA BNT-162b2 [...] Comment: [facility]# [id number] 2Result Comment: [facility] 3Result Comment: [facility] Medications acetaminophen 325 mg oral tablet 650 [...] Refills, Maintenance, 02/09/23 21:45:00 EDT, [facility], 164, cm, 11/20/22 15:21:00 EDT, Height, 80, kg, 08/28/21 10:21:00 EDT, Dry Weight Start Date: 02/09/23 Status: Ordered busPIRone 15 mg oral tablet 1 tablet, By Mouth, 2 times a day, # 180 tablet, 1 Refills, Maintenance, 02/09/23 21:46:00 EDT, [facility], 164, cm, 11/20/22 15:21:00 EDT, Height, 80, kg, 08/28/21 10:21:00 EDT, Dry Weight Start Date: 02/09/23 Status: Ordered busPIRone 30 mg oral tablet 1 tablet = 30 mg, By Mouth, 2 times a day, # 60 tablet, 6 Refills, Maintenance, 02/27/23 13:05:00 EDT, Tablet, [facility]/pharmacy #[id number], Partial fill upon patient request if [...] 4 Refills, Maintenance, 05/26/23 10:44:00 EST, Tablet, [facility]/pharmacy #[id number], Partial fill upon patient request if [...] 05/22/23 12:01:00 EST, Route to Pharmacy Electronically, [facility], 164, cm, 02/27/23 12:47:00 EDT, Height, 80, [...] Team Personnel Name: Romario Wood RN Position: [facility] RN Member Role: Primary Care Nurse Name: Destiny Lutz NP Position: [facility] PCO Associate Professional Member Role: PCP Address: [address] [place] [address]- Care Team Related Persons Name: KYLER DIEGO Address: home [address] [place] [address]
--- OUTSIDE RECORDS SUMMARY | 2023-09-16 08:58 | XMS_ITS | Continuity of Care Document ---
Author Name Unknown Organization [facility] Adult Address [address] [place] [address]- Care Team Providers Care Php Mysql Web Developer Name Role Phone Bolivar ENVIRONMENTAL SAMPLER, Destiny Manzanares Primary Care Physician Encounter [facility] Date(s): 02/22/20 - 03/23/20 [facility] Adult [address] [place] [address]- [facility] Allergies, Adverse Reactions, Alerts Substance [...] Refills, Maintenance, 11/15/19 16:44:00 EDT, [facility], 161, cm, 01/19/19 7:40:00 EDT, Height, 80, [...] Refills, Maintenance, 08/17/19 15:12:00 EST, [facility], 161, cm, 01/19/19 7:40:00 EDT, Height, 80, [...] 02/22/20 16:13:00 EDT, Route to Pharmacy Electronically, [facility]/pharmacy #[id number], 463, cm, 01/19/19 7:40:0... Start Date: 02/22/20 Stop [...]
--- OUTSIDE RECORDS SUMMARY | 2023-09-16 08:58 | XMS_ITS | Continuity of Care Document ---
Author Name Unknown Organization [facility] Adult Address [address] [place] [address]- Care Team Providers Care Campus Interviews Intern Name Role Phone Bolivar MERA, Destiny Manzanares Primary Care Physician [facility] 11[facility]/22 - 12/21/22 [facility] [address] [place] [id number] Allergies, [...] vaccine, inactivated 03/28/11 Robert rded SARS-CoV-2 mRNA (afclnie-bngp-tgceh) vax 10/05/21 Recorded SARS-CoV-2 (COVID-19) mRNA BNT-162b2 [...] tetanus/diphtheria/pertussis, acel(Tdap) 08/20/10 Recorded 1Result Comment: [facility]# [id number] 2Result Comment: [facility] 3Result Comment: [facility] Medications acetaminophen 325 mg oral tablet 650 [...] Refills, Maintenance, 09/07/22 15:37:00 EDT, [facility], 164, cm, 09/05/22 10:23:00 EDT, Height, 80, kg, 08/28/21 10:21:00 EDT, Dry Weight Start Date: 09/07/22 Status: Ordered busPIRone 15 mg oral tablet 1 tablet = 15 mg, By Mouth, 2 times a day, # 180 tablet, 0 Refills, Maintenance, 11/20/22 15:35:00 EDT, Tablet, [facility]/pharmacy #[id number], Partial fill upon patient request if [...] 6 Refills, Maintenance, 05/29/22 14:04:00 EST, Tablet, [facility]/pharmacy #[id number], Partial fill upon patient request if the prescription is for a schedule II opioid drug., 164, cm, 09/19/21 12:39:00... Start Date: 05/29/22 Stop Date: 12/25/22 Status: Ordered Golytely - oral powder for reconstitution See Instructions, Drink 240mL every 15 minutes until gone, # 4,000 mL, 0 Refills, Maintenance, 09/03/22 13:20:00 EDT, [facility]/pharmacy #[id number], may sub any gallon PEG prep, Drink 240mL every 15 minutes until gone, 164, cm, 09/03/22 13:02:00 EDT, Height, 80,... Start Date: 09/03/22 Status: Ordered MiraLax oral powder for reconstitution = 17 Gm, By Mouth, Daily, dissolve in water or juice. My increase to 2-3 times a day as needed for constipation, # 255 Gm, 2 Refills, Maintenance, 09/03/22 13:20:00 EDT, [facility]/pharmacy #[id number], Partial fill upon patient request if [...] 11/25/22 14:22:00 EDT, Route to Pharmacy Electronically, [facility]/pharmacy #[id number], Partial fill upon patient request if the [...] RN Position: [facility] RN Member Role: Primary Care Nurse Name: Destiny Lutz NP Position: [facility] PCO Associate Professional Member Role: PCP Address: Address: [address] [place] [id number] Care Team Related Persons Name: KYLER DIEGO Address: home [address] [place] [address]
--- OUTSIDE RECORDS SUMMARY | 2023-09-16 08:58 | XMS_ITS | Continuity of Care Document ---
Author Name Unknown Organization [facility] Address [address] [place] [address]- Care Team Providers Care Woodenware Assembler Name Role Phone Bolivar APPLICATION SYSTEMS ARCHITECT, Destiny Manzanares Primary Care Physician Encounter [facility] Date(s): 07/21/20 - 08/20/20 [facility] [address] [place] [address]- Allergies, Adverse Reactions, Alerts Substance Reaction Severity [...] 02/22/20 16:13:00 EDT, Route to Pharmacy Electronically, [facility]/pharmacy #[id number], 161, cm, 01/19/19 7:40:0... Start Date: [...]
--- OUTSIDE RECORDS SUMMARY | 2023-09-16 08:58 | XMS_ITS | Continuity of Care Document ---
Author Name Unknown Organization [facility] Adult Address [address] [place] [address]- Care Team Providers Care Cable Installer Repairer Name Role Phone Bolivar MERA, Destiny Manzanares Primary Care Physician Encounter [facility] Date(s): 11/07/20 - 12/07/20 [facility] [address] [place] [address]- Allergies, Adverse Reactions, Alerts Substance Reaction Severity [...] EDT, [facility], 161, cm, 06/26/20 15:07:00 EST, Height, 80, [...]
--- NOTE | 2023-09-16 09:15 | ED_ITS ---
HPI - General Adult General Chief complaint: Abdominal Pain Stated complaint: ABD PAIN X6 MONTHS,WORSE TODAY PER EMS Time Seen by Provider: 09/16/23 08:34 History of Present Illness HPI narrative: The patient says that she has been having intermittent abdominal pains over the last several months. They got much worse last night and this morning she was concerned about the persistence of the pain since she called an ambulance and came to the hospital. No definite fever. No nausea, vomiting, diarrhea. She is worried that she is 6 years overdue for a colonoscopy. She says there is a strong family history of colon cancer. Incidentally the patient reports that she has intermittent episodes of dizziness that cause her to lie in bed for several hours. This happens approximately once a week and it has been bothering her for a few months. She says she is shy about telling her PCP about these symptoms. She also says that she has a meningioma which has not been followed recently. She says that she is frustrated with her health insurance. She also thinks that she has ADHD and should be on different medications for ADHD. Related Data Allergies Allergy/AdvReac Type Severity Reaction Status Date / Time No Known Allergies Allergy Unverified 03/02/20 19:27 [No Known Allergies*] Review of Systems 2 Review of Systems: Yes all other systems are reviewed and are negative PMFSH Social History Social History Alcohol intake: current Alcohol intake frequency: a few times a month Smoked in Last 30 Days: No Use of substances other than those prescribed or required for medical reasons: No Advance Directives: No Advance Directives Information Provided: Yes Physical Exam ED Vital Signs: Vital Signs - 24 hr 09/16/23 06:23 09/16/23 09:27 09/16/23 11:52 Temperature 97.8 F 97.6 F Pulse Rate 70 71 80 Respiratory Rate 16 16 14 Blood Pressure 162/75 H 169/82 H 167/88 H Pulse Oximetry 95 97 95 Oxygen Delivery Method Room Air Room Air Room Air 09/16/23 12:02 Temperature 97.6 F Pulse Rate 80 Respiratory Rate 14 Blood Pressure 167/98 H Pulse Oximetry 95 Oxygen Delivery Method BMI result Body Mass Index 25.7 Const Other: The patient is an 83-year-old woman who does not appear in obvious distress. HENMT Other: The face is symmetrical. ?Mucous membranes moist. Eyes Other: Pupils are round equal, conjunctivae are clear, extraocular movements intact Neck Neck: Yes no JVD Resp Effort & Inspection: normal respiratory effort Auscultation: clear to auscultation bilaterally Cardio Rate: regular rate Rhythm: regular rhythm Heart sounds: S1 normal heart sound present and S2 normal heart sound present GI Other: The abdomen is flat and soft. Mild lower abdominal tenderness. Skin General skin exam: no rashes or lesions noted Neuro Other: Awake and alert. Face is symmetrical. Speech is clear. Mental status is unremarkable. Moving all 4 extremities symmetrically. Grossly neurologically intact. Extrem Other: No peripheral edema Medications Administered Discontinued Medications Generic Name Dose Route Start Last Admin Trade Name Freq PRN Reason Stop Dose Admin Sodium Chloride 1,000 mls @ 999 mls/hr 09/16/23 09:15 09/16/23 11:37 Ns IV 09/16/23 10:15 Infused .Q1H1M FADIA Infusion Iohexol 100 ml 09/16/23 09:55 09/16/23 09:55 Iohexol 350 Mg/Ml 100 Ml Infus..Btl IV 09/16/23 09:56 85 ml ONCE ONE Administration Medical Decision Making Medical Decision Making [facility] Narrative: The patient is an 83-year-old female who comes for evaluation of abdominal pain that was bothering her more last night than this morning. CT scan shows no acute findings. Labs are unremarkable. I think she may be discharged to follow up with the regular doctor. The patient was reassured and will be discharged. Lab Data 09/16/23 06:37 09/16/23 06:37 Labs: Lab Results 09/16/23 09/16/23 Range/Units 06:37 09:28 WBC 7.0 (4.8-10.8) X10*3/uL RBC 4.07 L (4.20-5.50) X10*6/uL Hgb 12.6 (12.0-16.0) g/dl Hct 38.3 (37.0-47.0) % MCV 94.1 (80.0-98.0) fL MCH 31.0 (27.0-33.0) pg MCHC 32.9 (31.0-35.0) g/dl RDW 12.9 (11.0-16.0) % Plt Count 286 (160-400) X10*3/uL MPV 10.1 (9.4-12.3) fL Immature Gran % (Auto) 0.1 (0.0-0.4) % Neut % (Auto) 56.2 (45-73) % Lymph % (Auto) 25.8 (20-40) % [place] % (Auto) 8.9 (2-11) % Eos % (Auto) 7.9 H (0-4) % Baso % (Auto) 1.1 (0-2) % Lymph # (Auto) 1.8 (1.2-4.9) X10*3/uL [place] # (Auto) 0.6 (0.1-1.2) X10*3/uL Eos # (Auto) 0.6 H (0.0-0.4) X10*3/uL Baso # (Auto) 0.1 (0.0-0.2) X10*3/uL Abs Immat Gran (auto) 0.01 (0.00-0.03) X10*3/uL Absolute Neuts (auto) 3.9 (2.0-8.3) x10*3/uL Absolute Nucleated RBC 0.000 (0.0-0.012) X10*3/uL Nucleated RBC % (auto) 0.0 (0.0-0.2) /100WBC Sodium 141 (135-145) mmol/L Potassium 4.8 (3.3-5.1) mmol/L Chloride 107 (96-108) mmol/L Carbon Dioxide 29 (22-29) mmol/L Anion Gap 10 L (12-20) BUN 25 H (9-16) mg/dL Creatinine 0.75 (0.5-1.4) mg/dL Estim Creat Clear Calc 54.7 Estimated GFR > 60 Random Glucose 110 (60-115) mg/dL Calcium 9.1 (8.4-10.2) mg/dL Total Bilirubin 0.3 (0.0-1.0) mg/dL Direct Bilirubin 0.1 (0.0-0.5) mg/dL AST 25 (5-31) U/L ALT 18 (0-31) U/L Alkaline Phosphatase 71 (39-117) U/L Total Protein 6.4 L (6.5-8.0) g/dL Albumin 3.7 (3.5-5.0) g/dL Lipase 38 (8-78) U/L Urine Color Yellow Urine Appearance Clear Urine pH 6.0 (5.0-9.0) Ur Specific [place] 1.025 (1.005-1.025) Urine Protein Negative (Neg-Trace) mg/dL Urine Glucose (UA) Negative (Negative) mg/dL Urine Ketones Negative (Negative) mg/dL Urine Blood Negative (Negative) Urine Nitrite Negative (Negative) Ur Leukocyte Esterase Trace H (Negative) Urine RBC 0-2 (0-2) /HPF Urine WBC 0-5 (0-5) /HPF Ur Squamous Epith Cells 0-2 (0-2) /HPF Urine Bacteria None Seen (None Seen) Hyaline Casts 0-2 (0-2) /LPF Discharge Plan Discharge Clinical Impression: Abdominal pain Patient Disposition: Home, Self-Care Additional Instructions: Your testing in the emergency room today is unremarkable. Please continue your regular medications. Please plan on following up with your regular doctor. If you have any sense of being constipated I would recommend that you purchase MiraLax (or a similar store brand of polyethylene glycol) and take it daily to see if it helps. Return to the emergency room if worse. Referrals: Destiny Lutz NP [Primary Care Provider] - (abdominal pain, episodes of dizziness) Interventions: ED Discharge Assessment Last Done: 09/16/23 12:02 Discharge Date/Time: 09/16/23 12:02
[2023-09-16 09:27] VITALS: BP 169/82; PULSE 71; RESP 16; O2SAT 97
[2023-09-16] MEDS: 0.9 % Sodium Chloride 1,000 ML 999 ML IV (09:35)
[2023-09-16 09:46] LABS: Appearance Urine Clear; Color Urine Yellow; Glucose Urine UA Negative (Negative); Leukocyte Esterase Urine Trace (Negative); Nitrite Urine Negative (Negative); Specific Gravity - Urine 1.025 (1.005-1.025); UMIC TRIGGER UACC YES; Urine Blood Negative (Negative); Urine Ketones Negative (Negative); Urine Protein Negative (Neg-Trace)
[2023-09-16 09:51] LABS: Bacteria Urine None Seen (None Seen); Hyaline Casts Urine 0-2 /LPF (0-2); RBC Urine 0-2 /HPF (0-2); Squamous Epithelial Cell Urine 0-2 /HPF (0-2); WBC Urine 0-5 /HPF (0-5)
[2023-09-16] MEDS: iohexoL 350 MG/ML 100 ML INFUS..BTL IV (09:55)
[2023-09-16 11:52] VITALS: BP 167/88; PULSE 80; RESP 14; TEMP 36.4; O2SAT 95
[2023-09-16 12:02] VITALS: BP 167/98; PULSE 80; RESP 14; TEMP 36.4; O2SAT 95
== END 2023-09-16 12:02 | disposition home or self-care (01) ==
PROVIDERS: Emergency Provider Emergency Medicine; PCP Nurse Practitioner Family
DX: R10.9 Unspecified abdominal pain (principal); R42 Dizziness and giddiness
CPT/HCPCS: 36415; 74177; 80053; 81001; 82248; 83690; 85025; 96360; 96361; 99284; Q9967

== ENCOUNTER 2024-10-02 16:53 | Emergency (ER) | payer MEDICARE, SELFPAY ==
[2024-10-02 17:02] VITALS: BP 147/82; O2SAT 99
[2024-10-02 17:12] VITALS: BP 159/80; PULSE 87; RESP 16; TEMP 36.6; O2SAT 98; BMI 24.6
--- NOTE | 2024-10-02 18:40 | ED.ANXIETY ---
HPI - Anxiety General Chief Complaint: Anxiety Stated Complaint: mental health crisis eval Time Seen by Provider: 10/02/24 17:13 Source: patient and EMS Mode of arrival: EMS Limitations: no limitations History of Present Illness ED Provider: BOSTON COLEMAN PA-C HPI narrative: 84-year-old female with pmhx significant for anxiety, depression, restless legs syndrome, HLD presents to the ED today for evaluation of increased anxiety, restlessness and agitation x2-3 days. She reports longstanding history of anxiety/depression. She reports recently switching from CBD chocolate to CBD gummies as recommended by her psychiatrist. She is unsure if this is worsening her anxiety. She tells me that she has been unable to sleep. She can not recall when she last slept. She states that her provider has been tapering her off of her trazodone. She states that she currently takes 50 mg per night as needed for sleep. She also states that she was prescribed gabapentin 600 mg as needed for her restless leg. She tells me that she has been out of both of these medications for 2 days now. She states that her psychiatrist called them into her pharmacy yesterday however she did not have a chance to pick these up yet. When asked if she has any thoughts of harming herself, she states that if it came down to it she would commit suicide however does not have any plan to do so. Denies any HI. Denies any other illicit substance use besides marijuana. Denies ETOH use. Denies any physical complaints at present. During my interview, patient becomes intermittently tearful. It is quite clear that she is restless. Related Data Previous Rx's ?Medication ?Instructions ?Recorded gabapentin 600 mg tablet 600 mg PO BID #60 tabs 10/02/24 trazodone 50 mg tablet 50 mg PO BEDTIME PRN insomnia #30 10/02/24 tabs Allergies Allergy/AdvReac Type Severity Reaction Status Date / Time No Known Allergies Allergy Verified 10/02/24 17:14 [No Known Allergies*] Review of Systems Review of Systems: Yes all other systems are reviewed and are negative PMFSH Past Medical History Attestation statement: The following information was validated with the patient. Source: old records reviewed and nursing notes reviewed Social History Social History Alcohol intake: current Alcohol intake frequency: a few times a month Smoked in Last 30 Days: No Use of substances other than those prescribed or required for medical reasons: Yes Substance Use Type: Marijuana Advance Directives: No Advance Directives Information Provided: Yes Physical Exam Vital Signs: Vital Signs: Last Vital Signs Temp 97.9 F 10/02/24 17:12 Pulse 76 10/02/24 20:06 Resp 18 10/02/24 20:06 BP 163/85 H 10/02/24 20:06 Pulse Ox 96 10/02/24 20:06 O2 Del Method Room Air 10/02/24 20:06 BMI result Body Mass Index 24.6 Hypertensive, vitals otherwise WNL General: Pleasant however intermittently tearful and restless Skin: Warm, dry, intact. No rashes or lesions. Head: Normocephalic, atraumatic. EENT: Hearing is intact b/l. Conjunctiva clear. Pupils constricted, reactive to light bilaterally. EOM intact. Moist mucous membranes.? Neck: Supple without LAD? Cardiac: Chest wall symmetric. RRR. Lungs: Normal respiratory effort without accessory muscle use. CTA bilaterally Abdomen: Soft, non-tender, non-distended. No rebound tenderness or guarding. Back: No midline spinous or paraspinal tenderness. No step off deformity. Ext: Upper and lower extremities atraumatic, without tenderness, deformity, swelling or erythema Neuro: AOx3. Normal speech. CN 2-12 grossly intact. Strength 5/5 intact throughout. Sensation intact to light touch. NV intact distally. Course Course Course Narrative: 1957 -- CBC without leukocytosis or left shift. No anemia. H&H stable. Chemistry without acute electrolyte abnormality requiring intervention. Kidney function around baseline. Liver function WNL. TSH WNL. Salicylates, acetaminophen ethanol undetectable. Urinalysis and urine drug screen pending. > patient placed in physician observation pending urine, care team evaluation and disposition. 2041 -- urinalysis without infection. Urine drug screen positive for marijuana, otherwise negative. Physician observation continued. Medications Administered Discontinued Medications Generic Name Dose Route Start Last Admin Trade Name Freq PRN Reason Stop Dose Admin Gabapentin 600 mg 10/02/24 18:22 10/02/24 18:49 Gabapentin 600 Mg Tablet PO 10/02/24 18:23 600 mg ONCE ONE Administration Trazodone HCl 25 mg 10/02/24 18:22 10/02/24 18:49 Trazodone Hcl 25 Mg Halftab PO 10/02/24 18:23 25 mg ONCE ONE Administration Medical Decision Making Medical Decision Making [facility] Narrative: 84-year-old female with past medical history significant for anxiety, depression, restless legs syndrome, HLD presents to the ED today for evaluation of increased anxiety, restlessness and agitation x2-3 days. Differential diagnosis includes anemia, electrolyte abnormality, mood disorder, anxiety, depression, SI, polysubstance abuse Presentation not consistent with acute organic causes to include delirium, dementia or drug induced disorders (acute ingestions or withdrawal; no evidence of toxidrome).? Will consult care team to evaluate the patient. Will also obtain labs to r/o metabolic derangement. Plan: labs, EKG, ASA/APAP levels, ETOH level, UDS, care team consultation, reassessment My interpretation of labs: No significant abnormality in patient's hematology and chemistry, normal magnesium, normal LFTs normal TSH. Urinalysis negative for UTI. Urine toxicology positive for THC, negative for alcohol The care team evaluated the patient. Patient is mostly anxious, no SI no HI, patient feels comfortable being discharged at the care team is agreeable as well. Patient requesting a prescription for gabapentin and trazodone, states she recently ran out and is unable to get in touch with her prescriber Mass pad was checked, patient does get prescriptions for gabapentin 600 mg b.i.d. also, patient has a recently dispensed bottle of trazodone 50 mg at bedtime Care team providing transportation for the patient. Differential Diagnosis Differential Diagnoses: The differential diagnosis associated with the presentation includes As above Admission/Observation Consideration of admission/observation: Escalation of care including admission/observation considered Lab Data [facility] Lab Attestation statement: I reviewed the patient's lab results. as above 10/02/24 18:57 10/02/24 18:57 Labs: Lab Results 10/02/24 10/02/24 Range/Units 18:57 18:58 WBC 10.8 (4.8-10.8) X10*3/uL RBC 3.95 L (4.20-5.50) X10*6/uL Hgb 12.3 (12.0-16.0) g/dl Hct 35.8 L (37.0-47.0) % MCV 90.6 (80.0-98.0) fL MCH 31.1 (27.0-33.0) pg MCHC 34.4 (31.0-35.0) g/dl RDW 12.8 (11.0-16.0) % Plt Count 273 (160-400) X10*3/uL MPV 10.6 (9.4-12.3) fL Immature Gran % (Auto) 0.3 (0.0-0.4) % Neut % (Auto) 70.2 (45-73) % Lymph % (Auto) 17.5 L (20-40) % [place] % (Auto) 9.9 (2-11) % Eos % (Auto) 1.4 (0-4) % Baso % (Auto) 0.7 (0-2) % Lymph # (Auto) 1.9 (1.2-4.9) X10*3/uL [place] # (Auto) 1.1 (0.1-1.2) X10*3/uL Eos # (Auto) 0.2 (0.0-0.4) X10*3/uL Baso # (Auto) 0.1 (0.0-0.2) X10*3/uL Abs Immat Gran (auto) 0.03 (0.00-0.03) X10*3/uL Absolute Neuts (auto) 7.6 (2.0-8.3) x10*3/uL Absolute Nucleated RBC 0.000 (0.0-0.012) X10*3/uL Nucleated RBC % (auto) 0.0 (0.0-0.2) /100WBC Sodium 141 (135-145) mmol/L Potassium 3.9 (3.3-5.1) mmol/L Chloride 105 (96-108) mmol/L Carbon Dioxide 25 (22-29) mmol/L Anion Gap 15 (12-20) BUN 19 H (9-16) mg/dL Creatinine 0.75 (0.5-1.4) mg/dL Estim Creat Clear Calc 49.0 Estimated GFR > 60 Random Glucose 91 (60-115) mg/dL Calcium 9.7 D (8.4-10.2) mg/dL Magnesium 2.2 (1.6-2.6) mg/dL Total Bilirubin 0.5 (0.0-1.0) mg/dL AST 29 (5-31) U/L ALT 14 (0-31) U/L Alkaline Phosphatase 60 (39-117) U/L Total Creatine Kinase 46 (26-140) U/L Total Protein 6.7 (6.5-8.0) g/dL Albumin 4.2 (3.5-5.0) g/dL TSH 1.78 (0.32-4.0) uIU/mL Urine Color Yellow Urine Appearance Turbid Urine pH >= 9.0 (5.0-9.0) Ur Specific [place] 1.020 (1.005-1.025) Urine Protein Trace (Neg-Trace) mg/dL Urine Glucose (UA) Negative (Negative) mg/dL Urine Ketones Trace (Negative) mg/dL Urine Blood Negative (Negative) Urine Nitrite Negative (Negative) Ur Leukocyte Esterase Negative (Negative) Salicylates < 5.0 L (15-30) mg/dL Urine Opiates Screen Not Detected (Not Detect) Ur Buprenorphine Scrn Not Detected (Not Detect) ng/mL Ur Oxycodone Screen Not Detected (Not Detect) ng/mL Urine Methadone Screen Not Detected (Not Detect) ng/mL Urine Fentanyl Screen Not Detected (Not Detect) Acetaminophen < 3 (<30) mcg/mL Ur Barbiturates Screen Not Detected (Not Detect) Ur Phencyclidine Scrn Not Detected (Not Detect) Ur Amphetamines Screen Not Detected (Not Detect) U Benzodiazepines Scrn Not Detected (Not Detect) Urine Cocaine Screen Not Detected (Not Detect) U Marijuana (THC) Screen POSITIVE H (Not Detect) Ethyl Alcohol < 10 mg/dL Independent Interpretation I performed an independent interpretation of an: EKG Interpretation: EKG showing normal sinus rhythm, rate ED beats per minute, no acute ischemic changes or ST elevations Independent Historian Clinical information obtained from an independent historian. History obtained from or confirmed by: EMS Chronic Conditions Patient?s care impacted by: Other (anxiety, depression) Social Determinants Patient?s care significantly limited by Social Determinants of Health including: Other Social Determinant of Health Critical Care Time Critical Care Time Critical Care Time: No Discharge Plan Discharge Clinical Impression: Acute anxiety Patient Disposition: Home, Self-Care Instructions: Anxiety (ED) Additional Instructions: Please follow-up with your primary care physician tomorrow. If you have any worsening or new symptoms, please return to the emergency room or call 911 Prescriptions: New gabapentin 600 mg tablet 600 mg PO BID Qty: 60 0RF trazodone 50 mg tablet 50 mg PO BEDTIME PRN (Reason: insomnia) Qty: 30 0RF Print Language: Spanish
--- NOTE | 2024-10-02 18:47 | ECG_ITS ---
Test Reason : ANXIETY Blood Pressure : */* mmHG Vent. Rate : 80 BPM Atrial Rate : 80 BPM P-R Int : 142 ms QRS Dur : 72 ms QT Int : 396 ms P-R-T Axes : 68 19 54 degrees QTcB Int : 456 ms Normal sinus rhythm Normal ECG When compared with ECG of 31-Aug-2017 20:05, No significant change was found Referred By: Carolyn Holcomb Electronically Signed By: SYDNEE CISNEROS MD
[2024-10-02] MEDS: traZODone HCL 25 MG HALFTAB PO (18:49)
[2024-10-02] MEDS: Gabapentin 600 MG TABLET PO (18:49)
[2024-10-02 19:03] LABS: MANUAL DIFF FLAG NO
[2024-10-02 19:08] VITALS: BP 163/85; PULSE 76; RESP 18; O2SAT 96
[2024-10-02 19:20] LABS: Alanine Aminotransferase 14 U/L (0-31); Albumin Level 4.2 g/dL (3.5-5.0); Alkaline Phosphatase 60 U/L (39-117); Anion Gap 15 (12-20); Aspartate Amino Transferase 29 U/L (5-31); Basophils Absolute Auto 0.1 X10*3/uL (0.0-0.2); Basophils Percent Auto 0.7 % (0-2); Bilirubin Total 0.5 mg/dL (0.0-1.0); Blood Urea Nitrogen 19 mg/dL (9-16); Calcium 9.7 mg/dL (8.4-10.2); Carbon Dioxide 25 mmol/L (22-29); Chloride 105 mmol/L (96-108); Eosinophils Absolute Auto 0.2 X10*3/uL (0.0-0.4); Eosinophils Percent Auto 1.4 % (0-4); Estimated Glomerular Filt Rate > 60; Glucose Random 91 mg/dL (60-115); Hematocrit 35.8 % (37.0-47.0); Hemoglobin 12.3 g/dl (12.0-16.0); Imm Gran Abs Auto 0.03 X10*3/uL (0.00-0.03); Imm Gran Pct Auto 0.3 % (0.0-0.4); Lymphocytes Absolute Auto 1.9 X10*3/uL (1.2-4.9); Lymphocytes Percent Auto 17.5 % (20-40); Magnesium 2.2 mg/dL (1.6-2.6); Mean Corpuscular HGB Conc 34.4 g/dl (31.0-35.0); Mean Corpuscular Hemoglobin 31.1 pg (27.0-33.0); Mean Corpuscular Volume 90.6 fL (80.0-98.0); Mean Platelet Volume 10.6 fL (9.4-12.3); Monocytes Absolute Auto 1.1 X10*3/uL (0.1-1.2); Monocytes Percent Auto 9.9 % (2-11); Neutrophils Absolute Auto 7.6 x10*3/uL (2.0-8.3); Neutrophils Percent Auto 70.2 % (45-73); Platelet Count 273 X10*3/uL (160-400); Potassium 3.9 mmol/L (3.3-5.1); Red Blood Count 3.95 X10*6/uL (4.20-5.50); Red Cell Distribution Width 12.8 % (11.0-16.0); Sodium 141 mmol/L (135-145); Total Protein 6.7 g/dL (6.5-8.0); White Blood Count 10.8 X10*3/uL (4.8-10.8)
[2024-10-02 19:21] LABS: Ethanol < 10 mg/dL
[2024-10-02 19:28] LABS: Acetaminophen LAB < 3 mcg/mL (<30); Salicylate < 5.0 mg/dL (15-30)
[2024-10-02 19:41] LABS: TSH reflex Free T4 1.78 uIU/mL (0.32-4.0)
[2024-10-02 20:06] VITALS: BP 163/85; PULSE 76; RESP 18; O2SAT 96
[2024-10-02 20:20] LABS: Appearance Urine Turbid; Color Urine Yellow; Glucose Urine UA Negative (Negative); Leukocyte Esterase Urine Negative (Negative); Nitrite Urine Negative (Negative); PH >= 9.0 (5.0-9.0); Urine Blood Negative (Negative); Urine Ketones Trace mg/dL (Negative); Urine Protein Trace mg/dL (Neg-Trace)
[2024-10-02 20:31] LABS: Amphetamine Screen Urine Not Detected (Not Detect); Barbiturates, Urine Not Detected (Not Detect); Benzodiazepines Screen Urine Not Detected (Not Detect); Buprenorphine Scr Not Detected (Not Detect); Cannabinoid Screen Urine POSITIVE (Not Detect); Cocaine Screen Urine Not Detected (Not Detect); Fentanyl, urine Not Detected (Not Detect); Methadone Screen, Urine Not Detected (Not Detect); Opiate Screen Urine Not Detected (Not Detect); Oxycodone Screen Urine Not Detected (Not Detect); Phencyclidine Screen Urine Not Detected (Not Detect)
[2024-10-02 21:31] VITALS: BP 147/85; PULSE 83; RESP 18; TEMP 36.6; O2SAT 95
== END 2024-10-02 21:34 | disposition home or self-care (01) ==
PROVIDERS: Physician Assistant Medical; Emergency Provider Internal Medicine; PCP Nurse Practitioner Family
DX: F41.9 Anxiety disorder, unspecified (principal); R45.1 Restlessness and agitation; E78.5 Hyperlipidemia, unspecified; Z79.899 Other long term (current) drug therapy
CPT/HCPCS: 36415; 80053; 80143; 80179; 80307; 81003; 82550; 83735; 84443; 85025; 93005; 99284; 99285; S9485

== ENCOUNTER → 2024-10-02 18:47 | Outpatient (BNV) | payer MEDICARE, SELFPAY | PROVIDERS: Emergency Provider Internal Medicine; PCP Nurse Practitioner Family; Visit Provider Internal Medicine Cardiovascular Disease | DX: F41.9 Anxiety disorder, unspecified (principal) | CPT/HCPCS: 93010 ==